=== PATIENT | male | born 1950 | race Caucasian/White ===

== ENCOUNTER → 2017-05-27 10:48 | Outpatient (REF) | payer MEDICAID, SELFPAY ==
[2017-05-27 13:54] LABS: Alanine Aminotransferase 53 U/L (12-78); Albumin Level 3.9 gm/dL (3.4-5.0); Albumin/Globulin Ratio 1.3 (1.1-1.8); Alkaline Phosphatase 79 U/L (46-116); Amylase 51 U/L (25-125); Anion Gap 14.5 mEq/L (5-15); Aspartate Amino Transferase 18 U/L (15-37); Bilirubin,Total 0.2 mg/dL (0.2-1.0); Blood Urea Nitrogen 23 mg/dL (7-18); Calcium 9.6 mg/dL (8.5-10.1); Carbon Dioxide 26 mmol/L (21.0-32.0); Chloride 108 mmol/L (98-107); Creatinine,Serum 1.56 mg/dL (0.70-1.30); Estimated Glomerular Filt Rate 45 ml/min (>60); GFR (African American) 54 ML/MIN (>60); Globulin 3.1 gm/dl (1.3-3.2); Glucose 157 mg/dL (74-106); Lipase 161 u/L (73-393); Potassium 4.5 mmoL/L (3.5-5.1); Sodium 144 mmol/L (136-145)
[2017-05-27 14:05] LABS: Basophils # 0.1 K/mm3 (0-0.2); Basophils % 0.5 % (0.1-2.0); Eosinophils # 0.7 K/mm3 (0.0-0.4); Eosinophils % 5.9 % (0.1-12.0); Hematocrit 45.6 % (42.0-52.0); Hemoglobin 15.3 g/dL (14.1-18.0); Lymphocytes # 3.3 K/mm3 (0.7-4.5); Lymphocytes % 29.8 K/mm3 (10-50); Mean Corpuscular HGB Conc 33.6 g/dL (31.8-35.4); Mean Corpuscular Hemoglobin 32.3 pg (27.0-31.2); Mean Corpuscular Volume 96.2 fl (80-94); Mean Platelet Volume 9.8 fl (7.4-10.4); Monocytes # 0.7 K/mm3 (0.1-1.0); Neutrophils # 6.3 K/mm3 (1.8-7.8); Neutrophils % 57.6 % (37.0-80.0); Platelet Count 207 K/mm3 (142-424); Red Blood Count 4.74 M/mm3 (4.60-6.20); Red Cell Distribution Width 12.6 % (11.5-17.5); White Blood Count 10.9 K/mm3 (4.8-10.8)
[2017-05-28 09:22] LABS: Erythrocyte Sedimentation Rate 8 mm/hr (0-20)
== END ==
LOC: LAB 10:48
PROVIDERS: Visit Provider Emergency Medicine
DX: R10.9 Unspecified abdominal pain (principal)
CPT/HCPCS: 80053; 82150; 83690; 85025; 85651

== ENCOUNTER → 2017-06-09 12:06 | Outpatient (CLI) | payer MEDICAID, SELFPAY ==
[2017-06-09 13:25] LABS: Anion Gap 12.2 mEq/L (5-15); Blood Urea Nitrogen 17 mg/dL (7-18); Carbon Dioxide 25 mmol/L (21.0-32.0); Chloride 108 mmol/L (98-107); Creatinine,Serum 1.36 mg/dL (0.70-1.30); Estimated Glomerular Filt Rate 53 ml/min (>60); GFR (African American) 64 ML/MIN (>60); Glucose 164 mg/dL (74-106); Potassium 4.2 mmoL/L (3.5-5.1); Sodium 141 mmol/L (136-145)
== END ==
PROVIDERS: Visit Provider Emergency Medicine
DX: Z01.812 Encounter for preprocedural laboratory examination (principal); R10.9 Unspecified abdominal pain
CPT/HCPCS: 36415; 80048

== ENCOUNTER → 2017-06-12 09:38 | Outpatient (CLI) | payer MEDICAID, SELFPAY ==
--- NOTE | 2017-06-12 09:41 | CT_ITS ---
CT abdomen pelvis w con COMPARISON: None HISTORY: Abdominal pain and distention TECHNIQUE: Multiaxial scans obtained from hemidiaphragms to the pelvic floor and were performed with IV and oral contrast. Sagittal and coronal reformats were evaluated as well. FINDINGS: The lower lung villegas are clear and is no pleural fluid. The stomach spleen and liver and pancreas appear normal. The gallbladder is somewhat small and contains multiple calcified gallstones. There are no dilated intrahepatic biliary ducts. The adrenal glands are normal. The kidneys are normal in size and show symmetrical function with tiny benign-appearing cortical cyst in each kidney the largest upper pole left kidney measuring 1.6 cm in diameter. The small bowel appears normal. There is a tiny umbilical hernia containing fat only. The appendix is normal. There is a moderate amount stool throughout the colon. There is mild diffuse diverticulosis of the lower descending colon without diverticulitis. The prostate is enlarged causing indentation on the floor of the urinary bladder. There is mild diffuse bladder wall thickening of either chronic atelectasis obstruction. There is an IVC filter in place. There are small bilateral angle hernias containing fat only. IMPRESSION: Obvious cholelithiasis, other nonacute findings as described above
--- NOTE | 2017-06-12 11:22 | HMH.ITSHM ---
tamsulosis finasterine lo dose aspirin vit d3 levothryoxine
== END ==
PROVIDERS: Family Provider Emergency Medicine; PCP Emergency Medicine; Visit Provider Emergency Medicine
DX: R10.9 Unspecified abdominal pain (principal)
CPT/HCPCS: 74177; Q9967

== ENCOUNTER → 2017-06-24 14:14 | Outpatient (REF) | payer MEDICAID, SELFPAY ==
[2017-06-24 18:06] LABS: Alanine Aminotransferase 44 U/L (12-78); Albumin/Globulin Ratio 1.2 (1.1-1.8); Alkaline Phosphatase 88 U/L (46-116); Anion Gap 11.2 mEq/L (5-15); Aspartate Amino Transferase 17 U/L (15-37); Bilirubin,Total 0.3 mg/dL (0.2-1.0); Blood Urea Nitrogen 21 mg/dL (7-18); Calcium 9.3 mg/dL (8.5-10.1); Carbon Dioxide 27 mmol/L (21.0-32.0); Chloride 108 mmol/L (98-107); Creatinine,Serum 1.51 mg/dL (0.70-1.30); Estimated Glomerular Filt Rate 47 ml/min (>60); Free T4 (Free Thyroxine) 1.02 ng/dl (0.76-1.46); GFR (African American) 57 ML/MIN (>60); Globulin 3.3 gm/dl (1.3-3.2); Glucose 219 mg/dL (74-106); Lipase 142 u/L (73-393); Potassium 4.2 mmoL/L (3.5-5.1); Sodium 142 mmol/L (136-145); Total Protein,Serum 7.3 gm/dL (6.4-8.2)
== END ==
LOC: LAB 14:14
PROVIDERS: Visit Provider Emergency Medicine
DX: R53.83 Other fatigue (principal)
CPT/HCPCS: 80053; 83690; 84439; 84443

== ENCOUNTER → 2017-07-10 07:52 | Outpatient (CLI) | payer MEDICAID, SELFPAY ==
--- NOTE | 2017-07-10 07:54 | US_ITS ---
US abdomen limited COMPARISON: CT scan abdomen pelvis 06/12/2017 HISTORY: Right upper quadrant pain TECHNIQUE: Targeted ultrasound right upper quadrant FINDINGS: The pancreas is normal. The liver is normal size and shows overall increased and somewhat coarsened echogenicity consistent with diffuse fatty infiltration. There are no focal lesions. Gallbladder is lower limits of normal size and there are multiple calcified gallstones layering along the dependent wall with acoustic shadowing beneath. The common bile duct is normal caliber and there is no intrahepatic ductal dilatation. Right kidney measures 9.6 x 4.8 x 6.4 cm. There are 2 small benign-appearing cortical cysts right kidney. IMPRESSION: 1 Obvious cholelithiasis. 2. Diffuse fatty infiltration of the liver
== END ==
PROVIDERS: Family Provider Emergency Medicine; PCP Emergency Medicine; Visit Provider Emergency Medicine
DX: R10.11 Right upper quadrant pain (principal)
CPT/HCPCS: 76705

== ENCOUNTER → 2017-07-15 12:49 | Outpatient (CLI) | payer MEDICAID, SELFPAY | PROVIDERS: PCP Emergency Medicine; Visit Provider Surgery | DX: Z01.810 Encounter for preprocedural cardiovascular examination (principal); R10.32 Left lower quadrant pain | CPT/HCPCS: 93005 ==

== ENCOUNTER 2019-08-06 14:09 | Emergency (ER) | payer MEDICARE, SELFPAY ==
[2019-08-06 14:09] VITALS: BP 142/94; PULSE 82; RESP 19; TEMP 36.7; O2SAT 100; BMI 24.5
--- NOTE | 2019-08-06 14:37 | HMH.EDUTC ---
[facility] [place] Disposition Clinical Impression: UTI (urinary tract infection) Qualifiers: Urinary tract infection type: site unspecified Hematuria presence: with hematuria Qualified Code(s): N39.0 - Urinary tract infection, site not specified; R31.9 - Hematuria, unspecified Disposition: Home, Self-Care Condition on Discharge: Good Instructions: Urinary Tract Infection, DI for Urinary Tract Infection (UTI), Ciprofloxacin Additional Instructions: *Increase fluids. Water not Soda or Tea *Start antibiotic immediately and be sure to take as ordered for the FULL length of time although you should start to see improvement over the next 48 hours *Be SURE to follow up anytime for new or worsening symptoms with your family doctor. AND in 48 hours for urine culture results with your family doctor, if you do not have a doctor then you may call back to the [facility] for urine culture results and further treatment. We do recommend that you choose and establish care with a Primary Care Physician. AND follow up with them in 10-14 days to repeat UA to ensure infection is resolved and blood no longer present *Be sure to let your PCP know that we sent urine cultures from the [facility] so they can follow up to ensure that you area the on the correct antibiotic Call your doctor office and make appointment for 48 hours (2 days from today) to follow up and get the results of your urine culture and further treatment Straight to ER if any pain or worsening of symptoms Make sure to follow up your family doctor next week for urine culture results Return if needed Prescriptions: Ciprofloxacin HCl [Cipro 500mg Tab] 500 mg PO BID 10 Days #20 tab Transmission Status: Pending to [facility] #[id number] Referrals: Guzman Rodríguez MD [Primary Care Provider] - As needed Time of Disposition: 14:54 Medical Decision Making - Cuco Inquiry Pt receiving controlled substance: No Cuco was queried for this patient: No Vital Signs: 08/06/19 14:09 Temperature 98.1 F Temperature Source Oral Pulse Rate [Radial] 82 Respiratory Rate 19 Blood Pressure [Right Arm] 142/94 H Blood Pressure Mean [Right Arm] 110 Blood Pressure Source [Right Arm] Automatic Cuff Blood Pressure Position [Right Arm] Sitting 02 Sat by Pulse Oximetry 100 Oxygen Delivery Method Room Air - Lab Data Lab results reviewed: Yes: I reviewed the patient's lab results. Orders (Tests/Meds): ORDERS Category Date Time Status Urine Culture Stat Micro 08/06/19 14:36 Ordered - Reevaluation(s) Time: 14:49 Reevaluation #1: Discussed UA test results with patient +leukocytes, recommended transfer to ED for further evaluation and CT with Stone protocol to rule out kidney stone and patient declined State that he will take antibiotics for UTI and follow up with PCP next week for urine culture results and further treatment Did not have any pain at this time and would return and go straight to ED if he started having any pain or worsening of symptoms Medication discussed with pharmacy and agreed Cipro 500mg bid x 10 days [facility] [place] HPI - General Stated complaint: Blood in urine Time Seen by Provider: 08/06/19 14:38 Mode of Arrival: Ambulatory Source of Information: Patient Limitations: No Limitations Description of Symptoms (Recalled from Triage Doc. by RN): BLOOD IN URINE SINCE 5 AM HEENT Symptoms (Recalled from RN notes): No Resp Symptoms (Recalled from RN notes): No Skin Symptoms (Recalled from RN notes): No MS Symptoms (Recalled from RN notes): No Functional Status (Recalled from RN notes): WNL - History of Present Illness Provider Complaint: Patient state that last night before he went to bed he noticed his urine looked dark State that he has had kidney stones before but not having pain like he had with that States that this morning his urine was dark and cloudy States that it looked like it may have some blood in it and burned when he urinated Denies fever, denies flank pain - Related Data Home
[2019-08-06 14:45] LABS: Apearance,Urine Cloudy (Clear); Bilirubin,Urine Negative (Negative); Blood, Urine 3+ (Negative); Color,Urine Dark Yellow (Yellow); Glucose,Urine (UA) 250 (Negative); Ketones,Urine Negative (Negative); PH,Urine 5.5 (5.0-8.5); Protein,Urine 1+ (Negative); Specific Gravity, Urine 1.025 (1.005-1.030); UTC Leukocyte Esterase,Urine 1+ (Negative); UTC Nitrate,Urine Negative (Negative); Urobilinogen,Urine 0.2 EU/dl (0.2)
[2019-08-06 15:09] VITALS: BP 142/94; PULSE 82; RESP 19; TEMP 36.7; O2SAT 100
== END 2019-08-06 15:10 | disposition home or self-care (01) ==
PROVIDERS: Emergency Provider Nurse Practitioner; PCP Emergency Medicine
DX: N30.01 Acute cystitis with hematuria (principal); Z90.09 Acquired absence of other part of head and neck; Z87.891 Personal history of nicotine dependence
CPT/HCPCS: G0463; 81003; 87086; 99201

== ENCOUNTER 2021-01-24 00:32 | Emergency (ER) | payer MEDICARE, MEDICAID, SELFPAY ==
[2021-01-24 00:34] VITALS: BP 152/105; PULSE 91; RESP 16; TEMP 37.2; O2SAT 97; BMI 25.7
[2021-01-24 00:47] VITALS: BMI 25.5
--- NOTE | 2021-01-24 00:48 | XR_ITS ---
PROCEDURE INFORMATION: Exam: XR Right Ankle Exam date and time: 01/24/2021 12:48 AM Age: 70 years old Clinical indication: Injury or trauma; Fall; Blunt trauma; Ankle; Right TECHNIQUE: Imaging protocol: XR Right ankle. Views: 3 or more views. COMPARISON: No relevant prior studies available. FINDINGS: Bones/joints: Acute mildly laterally displaced fracture of the metaphysis of the distal fibula with widening of the medial aspect of the ankle mortise. Prominent plantar calcaneal enthesophyte. At least a moderate size tibiotalar joint effusion which is more prominent anteriorly. Soft tissues: Diffuse soft tissue swelling about the ankle. IMPRESSION: 1. Acute mildly displaced fracture of the metaphysis of the distal fibula. 2. Widening the medial ankle mortise. 3. Moderate tibiotalar joint effusion.
--- NOTE | 2021-01-24 00:48 | XR_ITS ---
PROCEDURE INFORMATION: Exam: XR Pelvis Exam date and time: 01/24/2021 12:48 AM Age: 70 years old Clinical indication: Injury or trauma; Fall; Blunt trauma (contusions or hematomas); Bilateral; Pelvic region TECHNIQUE: Imaging protocol: XR pelvis. Views: 1 or 2 view. COMPARISON: ABDPELW CT abdomen pelvis w con 06/12/2017 10:03 AM FINDINGS: Bones/joints: No acute or healing fracture or malalignment. Soft tissues: Unremarkable. Vasculature: IVC filter identified projecting over the right aspect of the L3 vertebral body. IMPRESSION: No acute or healing fracture or malalignment. COMMENTS: For patients with an IVC filter, recommend assessment for a management plan for the patient's IVC filter. If there is no established management plan, recommend referral to an interventional clinician on a nonemergent basis for evaluation.
--- NOTE | 2021-01-24 00:48 | XR_ITS ---
PROCEDURE INFORMATION: Exam: XR Chest Exam date and time: 01/24/2021 12:48 AM Age: 70 years old Clinical indication: Injury or trauma; Fall; Blunt trauma (contusions or hematomas) TECHNIQUE: Imaging protocol: XR of the chest. Views: 2 views. COMPARISON: ABDPELW CT abdomen pelvis w con 06/12/2017 10:03 AM FINDINGS: Lungs: Unremarkable. No consolidation. Pleural spaces: Unremarkable. No pleural effusion. No pneumothorax. Heart/Mediastinum: Unremarkable. No cardiomegaly. Bones/joints: No suspicious lytic or sclerotic lesions of bone; degenerative changes of the spine and acromioclavicular joints. Lower cervical spine fusion hardware identified. IMPRESSION: 1. No acute cardiopulmonary disease. 2. No acute trauma related pathology.
--- NOTE | 2021-01-24 00:48 | XR_ITS ---
PROCEDURE INFORMATION: Exam: XR Right Tibia and Fibula Exam date and time: 01/24/2021 12:48 AM Age: 70 years old Clinical indication: Injury or trauma; Fall; Blunt trauma; Lower leg; Right TECHNIQUE: Imaging protocol: XR Right tibia and fibula. Views: 2 views. COMPARISON: CR XR ANKLE RT MIN 3V 01/24/2021 12:55 AM FINDINGS: Bones/joints: Prominent plantar calcaneal enthesophyte. Moderate tibiotalar joint effusion. Acute fracture of the metaphysis of the distal fibula. Widening of the medial ankle mortise. No other acute or healing fracture or malalignment. Soft tissues: Diffuse soft tissue swelling about the ankle. IMPRESSION: 1. Acute fracture of the metaphysis of the distal fibula. 2. Acute fracture of the distal fibula at the level of the metaphysis. Widening of the medial ankle mortise. No other acute or healing fracture or malalignment.
--- NOTE | 2021-01-24 02:05 | HMH.EDFALL ---
ED Disposition Clinical Impression: Disorder of ligament, right ankle Ankle fracture, right Qualifiers: Encounter type: initial encounter Fracture type: closed Qualified Code(s): S82.891A - Other fracture of right lower leg, initial encounter for closed fracture Disposition: Home, Self-Care Condition on Discharge: Good Instructions: DI for Ankle Fracture Additional Instructions: ice and elevate and call dr munson and pcp this am Referrals: Guzman Rodríguez MD [Primary Care Provider] - Sharlene Munson DPM [Staff Physician] - - Critical Care Critical Care Time: No Attestation: On 01/24/21, the high probability of a clinically significant, sudden or life threatening deterioration of the following system(s) required my full and direct attention, intervention and personal management. The time I documented below is in addition to time spent performing reported procedures but includes the following listed in this critical care notation. Medical Decision Making - Medical Records Medical records reviewed: Yes: I reviewed the patient's medical records. - Cuco Inquiry Pt receiving controlled substance: No Vital Signs: 01/24/21 00:34 Temperature 98.9 F Temperature Source Oral Pulse Rate [Left] 91 H Respiratory Rate 16 Blood Pressure [Right Arm] 152/105 H Blood Pressure Mean [Right Arm] 120 02 Sat by Pulse Oximetry 97 - Lab Data Lab results reviewed: Yes: I reviewed the patient's lab results. Orders (Tests/Meds): ED MEDICATIONS Discontinued Medications Generic Name Dose Route Start Last Admin Trade Name Freq PRN Reason Stop Dose Admin Acetaminophen/Codeine Phosphate 1 mayi 01/24/21 03:07 01/24/21 03:10 Acetaminophen 300mg W/Codeine 30mg Take Home Pack (6) PO 01/24/21 03:08 1 mayi ONCE ONE Administration Hydrocodone Bitart/Acetaminophen 1 tab 01/24/21 03:07 01/24/21 03:10 Hydrocodone/Apap 5/325 Mg Tablet PO 01/24/21 03:08 1 tab ONCE ONE Administration Ketorolac Tromethamine 60 mg 01/24/21 01:13 01/24/21 01:21 Ketorolac 60mg/2ml Vial IM 01/24/21 01:14 60 mg ONCE ONE Administration Methylprednisolone Sodium Succinate 125 mg 01/24/21 01:13 01/24/21 01:21 Methylprednisolone Sod Succ 125mg Vial IM 01/24/21 01:14 125 mg ONCE ONE Administration - Radiology Data #1 Image(s): Chest, Pelvis, Tib/Fib, Ankle Image Reviewed: Yes I have reviewed radiologist's interpretation Preliminary Findings: Abnormal (see report ) - CT Data CT Scan: Other (ankle ) Time Received: 03:[address] Reviewed: Yes: I have viewed the radiologist's interpretation Preliminary Findings: Abnormal (see report ) Medical Decision Narrative: will place in post splint and refer to dr arpit Couch HPI - General Chief Complaint: Fall Stated Complaint: AO 01/23/21 1700 Injury to Right leg Time Seen by Provider: 01/24/21 01:10 Mode of Arrival: Wheelchair Source of Information: Patient, Medical Record Limitations: No Limitations Description of Symptoms (Recalled from ER Triage Doc. by RN): pt fell in the afternoon down 2 stairs and hurt his right valencia. pt also has hx of chronic pain in legs pain 12/14 - History of Present Illness HPI Narrative: had acute fall missed steps and injured rt lower leg MD complaint: fall Onset (ago): hour(s) Fall from: down stairs (#) Place fall occurred: home Loss of consciousness: none Prolonged down time: no Context: tripped/slipped Location of injury - extremities: Right: lower leg Severity: moderate Associated symptoms (after fall): denies - Related Data Home Medications Medication Instructions Recorded Confirmed aspirin 81 mg tablet,delayed 81 mg PO DAILY tab 05/27/17 01/06/20 release Previous Rx's Medication Instructions Recorded cholecalciferol (vitamin D3) 125 5,000 unit PO DAILY #90 cap 03/22/18 mcg (5,000 unit) capsule Ciprofloxacin HCl [Cipro 500mg 500 mg PO BID 10 Days #20 tab 08/06/19 Tab] levothyroxine
--- NOTE | 2021-01-24 02:20 | CT_ITS ---
PROCEDURE INFORMATION: Exam: CT Right Lower Extremity Without Contrast, Ankle Exam date and time: 01/24/2021 2:20 AM Age: 70 years old Clinical indication: Injury or trauma; Fall TECHNIQUE: Imaging protocol: CT of the Right lower extremity without contrast was performed. Exam focused on the ankle. 3D rendering (Not supervised by radiologist): MIP and/or 3D reconstructed images were created by the technologist. Radiation optimization: All CT scans at this facility use at least one of these dose optimization techniques: automated exposure control; mA and/or kV adjustment per patient size (includes targeted exams where dose is matched to clinical indication); or iterative reconstruction. COMPARISON: CR XR ANKLE RT MIN 3V 01/24/2021 12:55 AM FINDINGS: Diffuse subcutaneous edema. Acute mildly displaced comminuted fracture centered at the metaphysis of the distal fibula. No other acute or healing fracture. Widening at the medial ankle mortise. This concerning for associated deltoid ligamentous complex injury which can be further assessed with MRI. At least a small to moderate tibiotalar joint effusion is present. Prominent plantar calcaneal enthesophyte No soft tissue hemorrhage or hematoma. IMPRESSION: 1. Acute mildly displaced comminuted fracture centered at the metaphysis of the distal fibula. 2. Widening at the medial ankle mortise.
--- NOTE | 2021-01-24 02:25 | PC.NURSE ---
pt to ct
[2021-01-24 03:11] VITALS: BP 152/105; PULSE 87; RESP 14; TEMP 37.2; O2SAT 99
== END 2021-01-24 03:32 | disposition home or self-care (01) ==
PROVIDERS: Emergency Provider Emergency Medicine; PCP Emergency Medicine
DX: S82.831A Other fracture of upper and lower end of right fibula, initial encounter for closed fracture (principal); W10.9XXA Fall (on) (from) unspecified stairs and steps, initial encounter; Y92.019 Unspecified place in single-family (private) house as the place of occurrence of the external cause; Z87.891 Personal history of nicotine dependence; R73.9 Hyperglycemia, unspecified
CPT/HCPCS: 29515; 36415; 71046; 72170; 73590; 73610; 73700; 80053; 83036; 85007; 85025; 93005; 99283

== ENCOUNTER → 2021-01-24 11:58 | Outpatient (CLI) | payer MEDICARE, SELFPAY ==
[2021-01-24 12:28] LABS: Basophils % 0.1 % (0.1-2.0); Eosinophils # 0.1 K/mm3 (0.0-0.4); Eosinophils % 0.5 % (0.1-12.0); Hematocrit 49.5 % (42.0-52.0); Hemoglobin 15.9 g/dL (14.1-18.0); Mean Corpuscular HGB Conc 32.1 g/dL (31.8-35.4); Mean Corpuscular Hemoglobin 32.2 pg (27.0-31.2); Mean Corpuscular Volume 100.1 fl (80-94); Mean Platelet Volume 9.2 fl (7.4-10.4); Monocytes # 0.2 K/mm3 (0.1-1.0); Monocytes % 1.4 % (1.7-9.3); Neutrophils # 14.6 K/mm3 (1.8-7.8); Neutrophils % 92.1 % (37.0-80.0); Platelet Count 227 K/mm3 (142-424); Red Blood Count 4.95 M/mm3 (4.60-6.20); Red Cell Distribution Width 12.6 % (11.5-17.5); White Blood Count 15.8 K/mm3 (4.8-10.8)
[2021-01-24 12:30] LABS: MANUAL DIFFERENTIAL MANUAL DIFFERENTIAL (MANUAL DIFF)
--- NOTE | 2021-01-24 12:31 | ECG_ITS ---
APPROVED REPORT Exam: Resting ECG HR:56 bpm ECG Measurements Heart Rate 56 AXES DE 152 P 78 QRSd 92 QRS 95 QT 416 T 35 QTc 401 Conclusion Sinus bradycardia with sinus arrhythmia Rightward axis Borderline ECG Electronically signed by : Jac Diamond MD 01/24/2021 15:09:41
[2021-01-24 12:43] LABS: Lymphocytes % 6 % (10-50); Monocytes % 1 % (2-9); Neutrophils % 93 % (42-76); Total Cells Counted 100
[2021-01-24 12:44] LABS: Platelet Estimate Normal
[2021-01-24 13:08] LABS: Alanine Aminotransferase 30 U/L (12-78); Albumin Level 4.1 g/dl (3.5-5.0); Albumin/Globulin Ratio 1.6 (1.1-1.8); Alkaline Phosphatase 78 U/L (38-126); Anion Gap 14.6 mEq/L (5-15); Aspartate Amino Transferase 24 U/L (17-59); Bilirubin,Total 0.4 mg/dl (0.2-1.3); Blood Urea Nitrogen 24 mg/dl (9-20); Calcium 9.8 mg/dl (8.4-10.2); Carbon Dioxide 20 mmol/L (22.0-30.0); Chloride 109 mmol/L (98-107); Estimated Glomerular Filt Rate 55 ml/min (>60); GFR (African American) 66 ML/MIN (>60); Globulin 2.6 g/dL (1.3-3.2); Glucose 337 mg/dl (74-100); Potassium 4.6 mmoL/L (3.5-5.1); Sodium 139 mmol/L (136-145); Total Protein,Serum 6.7 g/dl (6.3-8.2)
[2021-01-24 16:13] LABS: Hemoglobin A1C 8.8 % (4.0-6.0)
== END ==
PROVIDERS: PCP Emergency Medicine; Visit Provider Podiatrist
DX: R73.9 Hyperglycemia, unspecified (principal)
CPT/HCPCS: 36415; 80053; 83036; 85007; 85025; 93005

== ENCOUNTER → 2021-01-28 10:04 | Outpatient (CLI) | payer MEDICARE, MEDICAID, SELFPAY | PROVIDERS: PCP Emergency Medicine; Visit Provider Nurse Practitioner | DX: Z20.822 Contact with and (suspected) exposure to COVID-19 (principal) | CPT/HCPCS: C9803; U0003; U0005 ==

== ENCOUNTER → 2021-01-29 10:10 | Outpatient (CLI) | payer MEDICARE, MEDICAID, SELFPAY ==
--- NOTE | 2021-01-29 10:11 | US_ITS ---
APPROVED REPORT Exam Type: Lower Extremity Segmental Pressures Veneer Redrier: Sharlene Ling RVT Indications Claudication: Right Rest Pain: Right History of Smoking RT ANKLE FX,PRE-OP SKIN COLOR CHANGES Risk Factors History of Smoking Pressures/Indices Right Indices Left Indices Brachial 118.00 mmHg Brachial 118.00 mmHg Low Thigh 160.00 mmHg 1.36 Low Thigh 171.00 mmHg 1.45 Calf 190.00 mmHg 1.61 Calf 178.00 mmHg 1.51 Ankle(PT) 185.00 mmHg 1.57 Ankle(PT) 164.00 mmHg 1.39 Ankle(DP) 175.00 mmHg 1.48 Ankle(DP) 154.00 mmHg 1.31 Digit 130.00 mmHg 1.10 Digit 175.00 mmHg 1.48 Findings RT LAKESHA:1.57 LT LAKESHA:1.39 RT TBI:1.10 LT TBI:1.48 NORMAL PULSES BILATERAL NORMAL WAVEFORMS BILATERAL Conclusion RT LAKESHA:1.57 LT LAKESHA:1.39 RT TBI:1.10 LT TBI:1.48 NORMAL PULSES BILATERAL NORMAL WAVEFORMS BILATERAL Electronically signed by : Heike Izquierdo MD 02/01/2021 17:05:55
== END ==
PROVIDERS: PCP Emergency Medicine; Visit Provider Podiatrist
DX: R09.89 Other specified symptoms and signs involving the circulatory and respiratory systems (principal)
CPT/HCPCS: 93923

== ENCOUNTER 2021-01-30 06:19 | Day surgery (SDC) | payer MEDICARE, MEDICAID, SELFPAY ==
[2021-01-29 08:53] VITALS: BMI 25.5
[2021-01-30] VITALS (14 sets, daily range): BP systolic 124–150; BP diastolic 72–93; PULSE 66–91; RESP 14–18; TEMP 36.1–43; O2SAT 93–98
--- NOTE | 2021-01-30 07:44 | P.PN_ITS ---
[facility] Anesthesia Checklist - Patient Identification Patient Identification: Arm Band, Verbal (Name & ) - Structural Data Admitted From: Home Planned Operative Procedure/s: Right Ankle ORIF Consent for Planned Operative Procedure(s) Verified: Yes Verified Documents: Surgical Consent - NPO Status Verified Time NPO: 00:00 - Chart Verification Results Verified: CBC, BMP - Additional verifications Anesthesia Reactions: No Hx Blood Transfusions: No Blood Transfusion Reaction: No - Cardiovascular Assessment Heart Sounds: S1 & S2 Pulse Rhythm: Regular - Airway Assessment C-Spine Mobility Assessed: Yes TMJ Mobility Assessed: Yes Dentition: Good Dentition - Neurological Assessment Level of Consciousness: Awake, Alert, Appropriate - Anesthesia Plan Anesthesia Risk discussed: Yes ASA Class: II Anesthesia Type: General w/block [facility] History I have reviewed the patient's past medical history: Yes 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: Reports:: Deep Vein Thrombosis, Kidney Stones Denies:: Cancer, Diabetes Mellitus Type 1, Diabetes Mellitus Type 2, Internal Pacemaker, Lung Disease, MRSA, Seizures *Have you ever received a pneumonia vaccine?: Yes *Have you received a flu vaccine this season?: Yes Other 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: Reports: Cataracts, Thyroid Disease. Denies: Blood Transfusion Reaction Anesthesia experience/problems:: no issues Laterality Cases: Bilateral: Tonsillectomy Other Surgeries: Yes: Colonoscopy, Other. No: Pacemaker Amputation: No Fractures: No - *Social History Last grade of school completed: High school graduate Smoking Status: Former smoker Alcohol Intake: never Substance Use Type: denies use, heroin *Occupational Status:: retired Housing: house Household Members: spouse *Travel in the last 8 weeks: None Family Hx:: Cancer
--- NOTE | 2021-01-30 09:21 | XR_ITS ---
PROCEDURE: XR ANKLE RT 2V CLINICAL INDICATION: ORIF RT ANKLE IN OR COMPARISON: CR XR ANKLE RT MIN 3V from 01/24/2021 FINDINGS: Two fluoroscopic images obtained in surgery show placement of the distal fibular lateral bone plate which is fixated by threaded screw superiorly and inferiorly to the oblique distal fibular fracture. There has been reduction of the widened ankle mortise medially. IMPRESSION: Satisfactory ORIF distal fibular fracture and widened medial ankle mortise Dictated by: Dr. Parviz Cervantes MD 01/30/2021 12:27 Dr. Parviz Cervantes MD in [facility] 01/30/2021 12:27
--- NOTE | 2021-01-30 09:30 | XR_ITS ---
PROCEDURE: XR ANKLE RT MIN 3V CLINICAL INDICATION: Post op ORIF COMPARISON: CR XR ANKLE RT MIN 3V from 01/24/2021 FINDINGS: AP lateral oblique films were obtained through the semiopaque cast. The distal fibular lateral bone plate is transfixing and reducing the fracture of the distal fibula and lateral malleolus. There has been interval reduction of the widened medial ankle mortise to a normal appearing ankle mortise at this time. IMPRESSION: Satisfactory ORIF distal fibular fracture and reduction of the widened ankle mortise Dictated by: Dr. Parviz Cervantes MD 01/30/2021 12:25 Dr. Parviz Cervantes MD in OV 01/30/2021 12:25
--- NOTE | 2021-01-30 10:00 | HMH.ANESI ---
[facility] Anesthesia Record Part I Intake, IV Amount: 1,300 Estimated blood loss (mL): 20 Urine output (mL): 0 Blood Pressure: 134/77 SaO2: 94 Pulse Rate: 91 Respiratory Rate: 16 Temperature: 98.8 F Patient is:: Drowsy, Stable Stable to PACU at:: 10:00
--- NOTE | 2021-01-30 10:13 | SUR.PHASEI ---
blood sugar checked in pacu- 184 at 1007
[2021-01-30 10:15] LABS: POC Glucose,Bedside 184 (70-110)
--- NOTE | 2021-01-30 10:15 | HMH.OPNOTE ---
Date of procedure: 01/30/21 Pre-op Diagnosis:: 1. Right ankle fracture 2. Right deltoid ligament tear Post-op Diagnosis:: Same Procedure performed:: 1. Right distal fibula fracture ORIF 2. Right deltoid ligament direct open repair 3. Application of posterior splint Surgeon:: Sharlene Myers DPM CIRCULATION SALES REPRESENTATIVE:: Deshawn Kiran Anesthesia: GETA, regional (R pop, saph nerve block) Estimated blood loss (mL): 20 Clinical Note:: Patient is a 70-year-old newly diagnosed diabetic who had an accident last week when he fell and tripped on the stairs. X-rays and CT scan reviewed and discussed with the patient. Conservative treatment discussed but not recommended due to increase medial clear space and comminuted displaced fibula fracture. DOI: 01/23/21. We discussed surgery. All risks and benefits were discussed including but not limited to: damage to blood vessels and nerves, bleeding, infection, wound complications, delayed, mal or non-union of bone, post-traumatic arthritis, need for further surgery, implant failure, need for removal of implant, prolonged or permanent swelling of the extremity, prolonged or permanent pain or deformity, CRPS/RSD, DVT/PE, and anesthetic complications including . No guarantees were given. All questions fully answered. The patient verbalized understanding and agreed to proceed with surgery. Consent was obtained. Necessary labs and pre-op testing ordered: CBC, BMP, EKG, CXR, covid. Patient has crutches, Rx given for walker. Medical clearance granted per Dr. Rodríguez. Operative findings:: Increased medial clear space noted. Comminuted distal fibula fracture. There were 4 fracture fragments. There was a piece off of the anterior distal fibula. The more transverse oblique oriented distal fibula fracture had some fragmentation likely from impaction falling down the stairs. Hematoma and fluid noted in the ankle and subtalar joints. Syndesmosis appeared stable with no widening on testing. Operative note:: On this date and time patient was deemed an appropriate surgical candidate. Pre-op regional femoral and sciatic nerve block performed by anesthesia. With informed consent signed, the patient was taken to the operating theater. The patient was positioned supine. General anesthesia was induced. Tourniquet was applied to the right thigh. The right lower extremity was prepped and draped in normal sterile fashion. Right Distal Fibula Fracture ORIF: Attention was directed to the lateral ankle where intra-op fluoroscopy was utilized to sheila anatomical landmarks. A linear incision was made over the lateral ankle. Dissection was carried thru skin and subcutaneous tissue with care taken to maintain surgical hemostasis and safely retract neurovascular structures. Dissection was then carried thru deep fascia to bone. The peroneal tendons were visible posteriorly and laterally, and safely retracted during procedure. The fibula was clearly visualized and the fracture was identified. The fracture was noted to be communited. There were 3 main fracture fragments and a smaller piece off of the anterior distal fibula. Utilizing a curette the fracture fragments were cleaned. Please note that there was not any callus formation. Due to the fragmentation the ankle was unstable. Hematoma evacuated from the fracture site and the ankle joint. There was also blood and fluid to the subtalar and ankle joints. The wound was flushed with copious amounts of normal sterile saline. A curette was used to debride the fibrosis tissue from the fracture site. At this point reduction forceps were utilized compressing the distal more transverse oriented spiral oblique fibula fracture. Intraoperative fluoroscopy was utilized to check pre-and post-reduction AP and lateral views. The fracture was too communited to fit a lag, intrafrag screw. A bridge plate technique was utilized. A [employer] anatomic locking plate was applied and temporarily fixed. Again x-ray was used to check the
--- NOTE | 2021-01-30 11:11 | SUR.OPER ---
[id number] family provided with update [id number] family provided with update
--- NOTE | 2021-01-31 17:51 | HMH.ANESII ---
[facility] Anesthesia Record Part II Discharge Time: 10:38 Destination: Home PACU nurse assessment reviewed?: Yes Patient Condition:: Good Anesthesia Complications:: None none Swallowing reflex intact?: Yes Cyanosis?: No Blood Pressure: 133/84 Pulse Rate: 83 Temperature: 97.0 F Mental Status: Alert & Oriented Pain level:: 0 Nausea and/or vomitting:: None Intake, IV Amount: 0
[2021-01-31 17:52] VITALS: BP 133/84; PULSE 83; TEMP 36.1
== END 2021-01-30 12:32 | disposition home or self-care (01) ==
LOC: OR 06:21
PROVIDERS: PCP Emergency Medicine; Visit Provider Podiatrist
PROC: (CPT 27792; principal; 2021-01-30 07:30)
DX: S82.891A Other fracture of right lower leg, initial encounter for closed fracture (principal); S93.421A Sprain of deltoid ligament of right ankle, initial encounter; E11.9 Type 2 diabetes mellitus without complications; E03.9 Hypothyroidism, unspecified; Z79.899 Other long term (current) drug therapy; Z79.84 Long term (current) use of oral hypoglycemic drugs; W10.9XXA Fall (on) (from) unspecified stairs and steps, initial encounter; Y92.019 Unspecified place in single-family (private) house as the place of occurrence of the external cause
CPT/HCPCS: 27792; 27695; 73600; 73610; 76000; 82962; 96374; C1713; C1762; C1776; J2405

== ENCOUNTER → 2021-02-26 12:31 | Outpatient (CLI) | payer MEDICARE, MEDICAID, SELFPAY ==
--- NOTE | 2021-02-26 12:32 | CA_ITS ---
APPROVED REPORT Right Lower Extremity Venous Study for DVT. Rn House Supervisor: MARYSOL Indications Lower Extremity Edema: Right History of Smoking Pain and edema of right lower extremity. Patient fractured the right fibula with surgery done 01/30/21. States 3 days ago he noticed swelling in his right thigh. He is currently wearing a tall fracture walking boot post cast removal 02/18/21. Risk Factors Immobility Post OP Vein Imaging CFV (R): Thrombus FEM (R): Thrombus POP (R): Thrombus PTV (R): Thrombus GSV (R): Thrombus SSV (R): Thrombus Peroneals (R):Thrombus GAS (R): Thrombus Findings The right Peroneal, Posterior Tibial, Popliteal, Femoral, Common Femoral, Small Saphenous, Great Saphenous Veins are dilated Color flow duplex demonstrates superficial thrombosis of the right Great Saphenous Vein above the knee.and are non-compressible. Color flow duplex of the right lower extremity demonstrates occlusive DVT involving the following Veins:Peroneal, Posterior Tibial, Popliteal, Femoral, Common Femoral and gastrocnemius. Conclusion Extensive DVT right lower extremity Critical Notification Critical Value: Yes Physician Notified Date: 02/26/2021 Time: 13:27 Physician Name: GURDEEP Fernando [facility] primary care Electronically signed by : Lucho Hickman MD 02/27/2021 16:33:18
== END ==
PROVIDERS: PCP Emergency Medicine; Visit Provider Emergency Medicine
DX: M79.604 Pain in right leg (principal); R60.0 Localized edema
CPT/HCPCS: 93971

== ENCOUNTER → 2021-03-14 09:08 | Outpatient (CLI) | payer MEDICARE, MEDICAID, SELFPAY ==
--- NOTE | 2021-03-14 09:29 | XR_ITS ---
PROCEDURE: XR ANKLE WT BEARING RT MIN 3V CLINICAL INDICATION: fracture follow up/postop views COMPARISON: CR XR ANKLE RT MIN 3V from 01/24/2021 CR XR ANKLE RT 2V from 01/30/2021 CR XR ANKLE RT MIN 3V from 01/30/2021 FINDINGS: Cast has been removed. Lateral fibular bone plate remains in place with good alignment of the distal fibular fracture. No obvious hardware malfunction. Ankle mortise is preserved. IMPRESSION: Good alignment status post ORIF distal fibular fracture Dictated by: Lucho Hickman MD 03/14/2021 16:53 Lucho Hickman MD in [place] 03/14/2021 16:53
== END ==
PROVIDERS: PCP Emergency Medicine; Visit Provider Podiatrist
DX: S82.891A Other fracture of right lower leg, initial encounter for closed fracture (principal)
CPT/HCPCS: 73610

== ENCOUNTER 2021-04-18 09:49 | Emergency (ER) | payer MEDICARE, MEDICAID, SELFPAY ==
[2021-04-18 10:16] VITALS: BP 120/85; PULSE 87; RESP 16; TEMP 36.9; O2SAT 98; BMI 25.1
--- NOTE | 2021-04-18 10:20 | HMH.EDGENADL ---
ED Disposition Clinical Impression: Abdominal cramping, Nausea Disposition: Home, Self-Care Condition on Discharge: Good Instructions: Acute Abdominal Pain Additional Instructions: follow up pcp, return for worse Prescriptions: Dicyclomine HCl [Bentyl 10mg capsule] 10 mg PO TID PRN #15 cap PRN Reason: Cramping Transmission Status: Pending to [facility] Promethazine HCl [Phenergan 25mg tab] 25 mg PO Q8 PRN #15 tab PRN Reason: Nausea And Vomiting Transmission Status: Pending to [id number] Referrals: Guzman Rodríguez MD [Primary Care Provider] - - Critical Care Critical Care Time: No Attestation: On 04/18/21, the high probability of a clinically significant, sudden or life threatening deterioration of the following system(s) required my full and direct attention, intervention and personal management. The time I documented below is in addition to time spent performing reported procedures but includes the following listed in this critical care notation. Medical Decision Making - Cuco Inquiry Pt receiving controlled substance: No Vital Signs: 04/18/21 10:16 Temperature 98.5 F Temperature Source Oral Pulse Rate [Radial] 87 Respiratory Rate 16 Blood Pressure [Right Arm] 120/85 Blood Pressure Mean [Right Arm] 96 Blood Pressure Position [Right Arm] Sitting 02 Sat by Pulse Oximetry 98 Oxygen Delivery Method Room Air - Lab Data Lab Results 04/18/21 10:15: WBC 11.2 H, RBC 4.85, Hgb 15.3, Hct 48.5, MCV 99.9 H, MCH 31.5 H, MCHC 31.6 L, RDW 13.8, Plt Count 280, MPV 9.3, Neut % (Auto) 68.1, Lymph % (Auto) 17.0, [place] % (Auto) 5.5, Eos % (Auto) 7.8, Baso % (Auto) 1.7, Neut # (Auto) 7.6, Lymph # (Auto) 1.9, [place] # (Auto) 0.6, Eos # (Auto) 0.9 H, Baso # (Auto) 0.2 04/18/21 10:15: Sodium 140, Potassium 3.5, Chloride 105, Carbon Dioxide 25, Anion Gap 13.5, BUN 21 H, Creatinine 1.20, Estimated Creat Clear 64, Estimated GFR 60, Est GFR ( Amer) 73, Glucose 212 H, Calcium 9.8, Total Bilirubin 0.3, AST 27, ALT 26, Alkaline Phosphatase 72, Total Protein 7.5, Albumin 4.6, Globulin 2.9, Albumin/Globulin Ratio 1.6 Result diagrams: 04/18/21 10:15 04/18/21 10:15 Orders (Tests/Meds): ED MEDICATIONS Discontinued Medications Generic Name Dose Route Start Last Admin Trade Name Freq PRN Reason Stop Dose Admin Dicyclomine HCl 20 mg 04/18/21 10:20 04/18/21 10:25 Dicyclomine 10mg Capsule PO 04/18/21 10:21 20 mg ONCE ONE Administration Metoclopramide HCl 10 mg 04/18/21 10:19 04/18/21 10:25 Metoclopramide Hcl 10mg/2ml Vial IVP 04/18/21 10:20 10 mg ONCE ONE Administration Ondansetron HCl 8 mg 04/18/21 10:19 04/18/21 10:24 Ondansetron 4mg/2ml Vial IV 04/18/21 10:20 8 mg ONCE ONE Administration ORDERS Category Date Time Status Abdomen XR flat & upright [XR acute abdomen series] Exams 04/18/21 10:50 Taken Stat Medical Decision Narrative: reeval, salvatore po well, abd soft, appears well, ok with plan to rx and f/u prn General Adult HPI - General Stated complaint: vomiting,abd pain Time Seen by Provider: 04/18/21 10:20 - History of Present Illness HPI narrative: mid abd pain constant dull moderate non rad since this am after eating , ASSOC W VOMIT, last bm 2 days gas pass today no prior surgery Radiation: non-radiation Severity: moderate Quality: constant Relieving factors: none Exacerbating factors: none Associated symptoms: nausea/vomiting - Related Data Home Medications Medication Instructions Recorded Confirmed aspirin 81 mg tablet,delayed 81 mg PO DAILY tab 05/27/17 03/14/21 release Hydrocod/Acet 5/325 mg [[place] 1 tab PO TID 01/30/21 03/14/21 5/325mg tablet] Metformin HCl 500 mg PO BID 01/30/21 03/14/21 Previous Rx's Medication Instructions Recorded hydrocodone 7.5 mg-acetaminophen 1 tab PO Q4-6H PRN 7 Days #40 tab 01/29/21 325 mg tablet ibuprofen 800 mg tablet 800 mg PO BID #60 tab 01/29/21
[2021-04-18 10:30] LABS: Basophils # 0.2 K/mm3 (0-0.2); Basophils % 1.7 % (0.1-2.0); Eosinophils # 0.9 K/mm3 (0.0-0.4); Eosinophils % 7.8 % (0.1-12.0); Hematocrit 48.5 % (42.0-52.0); Hemoglobin 15.3 g/dL (14.1-18.0); Lymphocytes # 1.9 K/mm3 (0.7-4.5); Mean Corpuscular HGB Conc 31.6 g/dL (31.8-35.4); Mean Corpuscular Hemoglobin 31.5 pg (27.0-31.2); Mean Corpuscular Volume 99.9 fl (80-94); Mean Platelet Volume 9.3 fl (7.4-10.4); Monocytes # 0.6 K/mm3 (0.1-1.0); Monocytes % 5.5 % (1.7-9.3); Neutrophils # 7.6 K/mm3 (1.8-7.8); Neutrophils % 68.1 % (37.0-80.0); Platelet Count 280 K/mm3 (142-424); Red Blood Count 4.85 M/mm3 (4.60-6.20); Red Cell Distribution Width 13.8 % (11.5-17.5); White Blood Count 11.2 K/mm3 (4.8-10.8)
[2021-04-18 10:39] LABS: Chloride 105 mmol/L (98-107); Sodium 140 mmol/L (136-145)
[2021-04-18 10:40] LABS: Potassium 3.5 mmoL/L (3.5-5.1)
[2021-04-18 10:42] LABS: Alanine Aminotransferase 26 U/L (12-78); Alkaline Phosphatase 72 U/L (38-126); Anion Gap 13.5 mEq/L (5-15); Aspartate Amino Transferase 27 U/L (17-59); Bilirubin,Total 0.3 mg/dl (0.2-1.3); Blood Urea Nitrogen 21 mg/dl (9-20); Calcium 9.8 mg/dl (8.4-10.2); Carbon Dioxide 25 mmol/L (22.0-30.0); Creatinine Clearance Estimated 64 mL/min (50-200); Estimated Glomerular Filt Rate 60 ml/min (>60); GFR (African American) 73 ML/MIN (>60); Glucose 212 mg/dl (74-100)
[2021-04-18 10:43] LABS: Albumin Level 4.6 g/dl (3.5-5.0); Albumin/Globulin Ratio 1.6 (1.1-1.8); Globulin 2.9 g/dL (1.3-3.2); Total Protein,Serum 7.5 g/dl (6.3-8.2)
--- NOTE | 2021-04-18 10:50 | XR_ITS ---
FINAL REPORT CLINICAL HISTORY: lower abd pain, n/v FINDINGS: Chest: Single view was obtained. The heart and mediastinum are within normal limits. There is mild right base atelectasis. There is no pneumothorax. There is dextroscoliosis of the thoracic spine. Abdomen: 2 views were obtained. There is a nonobstructive bowel gas pattern with a moderate to large amount of stool throughout the colon. There are no abnormally dilated loops of bowel. There is no free air. There are no abnormal calcifications. IMPRESSION: Mild right base atelectasis. Constipation. Reviewed, Interpreted and Dictated by Farrukh Garduno III, MD Transcribed by Anne Atkins Authenticated by Farrukh Garduno III, MD on 04/18/2021 12:27:23 PM [facility]
[2021-04-18 11:31] VITALS: BP 123/68; PULSE 78; RESP 16; TEMP 36.6; O2SAT 98
== END 2021-04-18 11:32 | disposition home or self-care (01) ==
LOC: UTC 09:54 → ER 10:03
PROVIDERS: Emergency Provider Emergency Medicine; PCP Emergency Medicine
DX: R11.2 Nausea with vomiting, unspecified (principal); E11.65 Type 2 diabetes mellitus with hyperglycemia; Z87.442 Personal history of urinary calculi
CPT/HCPCS: 74021; 80053; 85025; 96374; 96375; 99282; J2405

== ENCOUNTER → 2021-05-09 09:40 | Outpatient (CLI) | payer MEDICARE, MEDICAID, SELFPAY ==
--- NOTE | 2021-05-09 09:45 | XR_ITS ---
FINAL REPORT CLINICAL HISTORY: post-op COMPARISON: March 14, 2021 FINDINGS: RIGHT ANKLE 3 views were obtained. There are postoperative changes of the distal fibula with a screw plate and multiple screws present. Bony alignment is normal. There is a subacute to chronic appearing distal fibular fracture with callus formation. There is a plantar calcaneal spur. There is no soft tissue abnormality. IMPRESSION: Postoperative changes as described. Reviewed, Interpreted and Dictated by Farrukh Garduno III, MD Transcribed by Juanita Arenas Authenticated by Farrukh Garduno III, MD on 05/09/2021 10:38:55 AM [facility]
== END ==
PROVIDERS: PCP Emergency Medicine; Visit Provider Podiatrist
DX: Z98.890 Other specified postprocedural states (principal); S82.841D Displaced bimalleolar fracture of right lower leg, subsequent encounter for closed fracture with routine healing
CPT/HCPCS: 73610

== ENCOUNTER 2021-05-22 11:00 | Outpatient (RCR) | payer MEDICARE, MEDICAID, SELFPAY ==
--- NOTE | 2021-05-13 15:50 | HMH.PTOPEV ---
PT Outpatient Evaluation Rehab PT Outpatient Evaluation Start: 05/13/21 14:32 Freq: Status: Active Protocol: Document 05/13/21 14:37 GIOVANY (Rec: 05/13/21 15:50 GIOVANY [id number]) Electronically Signed By Colt Malone, PT 05/13/21 14:37 Outpatient Therapy Subjective History Subjective History Pt presents s/p right ankle ORIF-bimalleolar fx in lat Jan 2021. Pt reports recent D/C of right walking boot, 'so happy to be outta that boot, but I'm sore from walking too much over the weekned.' Pt reports lateral and medial right ankle soreness, lingering post-op/ immobilization weakness and stiffness, as well as chronic bilateral foot swelling. PMH: DM Chief Complaint Pain,Spasms,Swelling,Weakness Symptom Type Ache,Dull Symptoms Relieved By Rest/Positioning Symptoms Aggravated By Standing,Physical Activity, Walking Prior Functional Limitations Housework,Standing,Walking, Stairs Current Functional Limitations Housework,Standing,Walking, Stairs Symptom Description Intermittent Level of pain today (0-10) 3 Pain scale - at its best (0-10) 0 Pain scale - at its worst (0-10) 4 Ankle/Foot Eval Gait Observation General Gait Pattern Observation Antalgic Gait Assistive Device Ambulation Assistive Device None Palpation Tenderness right Ankle/Foot Palpation Findings Tenderness Ankle/Foot Palpation Overall Comment 2/4 medial and lateral jt line ROM Ankle/Foot Dorsiflexion w/Knee Extended 0 Active Range Motion (degrees) Ankle/Foot Plantar Flexion Active Range 0-44 of Motion (degrees) Ankle/Foot Eversion Active Range of 0-16 Motion (degrees) Ankle/Foot Inversion Active Range of 0-26 Motion (degrees) Ankle/Foot ROM Limitations Soft Tissue Tightness MMT Ankle Dorsiflexion Strength Grade 4- Good- Ankle Plantarflexion Strength Grade 4- Good- Foot Eversion Strength Grade 3+ Fair+ Foot Inversion Strength Grade 3+ Fair+ Outpatient Therapy Assessment Impairments Problems/Impairmments Palpation Tenderness,Impaired Range of Motion,Impaired Strength,Impaired Gait Pattern ,Impaired Walking,Impaired Standing,Impaired Household Care,
== END 2021-05-22 11:05 | disposition home or self-care (01) ==
LOC: PT 11:00
PROVIDERS: PCP Emergency Medicine; Visit Provider Podiatrist
DX: S82.841D Displaced bimalleolar fracture of right lower leg, subsequent encounter for closed fracture with routine healing (principal); Z98.890 Other specified postprocedural states
CPT/HCPCS: 97010; 97014; 97110; 97112; 97140; 97163; G0283

== ENCOUNTER 2021-05-27 13:23 | Emergency (ER) | payer MEDICARE, MEDICAID, SELFPAY ==
[2021-05-27 14:34] VITALS: BP 128/81; PULSE 103; RESP 18; TEMP 36.8; O2SAT 97; BMI 25.5
--- NOTE | 2021-05-27 14:57 | HMH.EDUTC ---
[facility] [place] Clinical Impression: UTI (urinary tract infection) Qualifiers: Urinary tract infection type: site unspecified Hematuria presence: with hematuria Qualified Code(s): N39.0 - Urinary tract infection, site not specified; R31.9 - Hematuria, unspecified Abdominal pain Qualifiers: Abdominal location: generalized Qualified Code(s): R10.84 - Generalized abdominal pain Disposition: Still a Patient Condition on Discharge: Fair Referrals: Guzman Rodríguez MD [Primary Care Provider] - Time of Disposition: 15:22 Medical Decision Making - Medical Records Medical records reviewed: No: I reviewed the patient's medical records. - Cuco Inquiry Pt receiving controlled substance: No Vital Signs: 05/27/21 14:34 Temperature 98.3 F Temperature Source Oral Pulse Rate [Right Brachial] 103 H Respiratory Rate 18 Blood Pressure [Right Arm] 128/81 Blood Pressure Mean [Right Arm] 96 Blood Pressure Source [Right Arm] Automatic Cuff Blood Pressure Position [Right Arm] Sitting 02 Sat by Pulse Oximetry 97 Oxygen Delivery Method Room Air - Lab Data Lab results reviewed: Yes: I reviewed the patient's lab results. Orders (Tests/Meds): ORDERS Category Date Time Status Urine Culture Stat Micro 05/27/21 14:30 Received [facility] HPI - General Stated complaint: bilateral ear ache, stomach pains Time Seen by Provider: 05/27/21 14:58 Mode of Arrival: Ambulatory Source of Information: Patient Limitations: No Limitations Description of Symptoms (Recalled from Triage Doc. by RN): stomach cramps, unable to urinate, cara ear ache HEENT Symptoms (Recalled from RN notes): Yes Resp Symptoms (Recalled from RN notes): No Skin Symptoms (Recalled from RN notes): No MS Symptoms (Recalled from RN notes): No Functional Status (Recalled from RN notes): n/a - History of Present Illness Provider Complaint: He states that he has been having ongoing issues with abdominal pain over the past few weeks. He was seen in the ER recently for his abdominal pain. He states that he is back because he needs answers about what is going on. Additionally, he has been having trouble urinating for the past several days. He states that he has to push very hard to get any urine to come out. In the past he has had issues with his prostate that caused similar issues. He has been having extreme chills at home for the past 2 days. He states that he chills so bad that he can't hold still. He has been using a heating pad and multiple blankets to keep from chilling. - Related Data Home Medications Medication Instructions Recorded Confirmed aspirin 81 mg tablet,delayed 81 mg PO DAILY tab 05/27/17 05/09/21 release Previous Rx's Medication Instructions Recorded ibuprofen 800 mg tablet 800 mg PO BID #60 tab 01/29/21 ondansetron 4 mg disintegrating 4 mg PO Q6H #30 tab 01/29/21 tablet rivaroxaban 20 mg tablet 20 mg PO DAILY #30 tab 02/26/21 finasteride 5 mg tablet 5 mg PO DAILY #90 tab 03/15/21 tamsulosin 0.4 mg capsule 0.4 mg PO DAILY #90 cap 03/15/21 levothyroxine 25 mcg tablet See Rx Instructions .ROUTE 03/28/21 .COMPLEX #90 tablet Dicyclomine HCl [Bentyl 10mg 10 mg PO TID PRN #15 cap 04/18/21 capsule] Promethazine HCl [Phenergan 25mg 25 mg PO Q8 PRN #15 tab 04/18/21 tab] metformin 500 mg tablet See Rx Instructions .ROUTE 05/14/21 .COMPLEX #60 tablet Allergies Allergy/AdvReac Type Severity Reaction Status Date / Time No Known Drug Allergies Allergy Verified 05/09/21 10:19 No Known Allergies Allergy Unknown Uncoded 02/26/21 11:10 - Worker's Comp Is this a Worker's Comp case?: No Is this an [facility] Worker's Comp?: No Is this a [facility] Worker's Comp?: No [facility] History - Hepatitis A Screen Drug use history?: No High risk sexual behaviors?: No History of sexually transmitted infection?: No Currently employed?: No Childcare worker?: No Do you have indoor plumbing?: Yes Do you have electricity?: Yes Attestation sta
[2021-05-27 15:15] VITALS: BP 131/83; PULSE 78; RESP 16; TEMP 36.6; O2SAT 98; BMI 23.0
[2021-05-27 15:26] LABS: Microscopic, Urine URINE MICROSCOPIC (MICROSCOPIC)
--- NOTE | 2021-05-27 15:27 | CT_ITS ---
FINAL REPORT TECHNIQUE: Axial images through the abdomen and pelvis were performed without contrast.This study was performed with techniques to keep radiation doses as low as reasonably achievable, (ALARA). Individualized dose reduction techniques using automated exposure control or adjustment of mA and/or kV according to the patient's size were employed. CLINICAL HISTORY: urinary retention COMPARISON: 06/12/2017 FINDINGS: ABDOMEN: Scarring is seen at the lung bases. The heart size is normal. Limited images of the liver demonstrate mild, diffuse fatty infiltration. There is cholelithiasis. The spleen is normal. No adrenal mass is identified. The aorta is normal in caliber. There is no significant free fluid or adenopathy. There is no nephrolithiasis. There is no hydronephrosis. Multiple cysts are seen in the right kidney measuring up to 1.9 cm which do not appear to represent simple cysts but favor benign. PELVIS: The appendix is not identified. There is a Lopez catheter within a decompressed urinary bladder. Prostate is mildly enlarged. There is pancolonic diverticulosis without evidence of diverticulitis. There is no significant free fluid or adenopathy. IMPRESSION: Multiple cysts in the right kidney, not simple cyst but favor benign, essentially unchanged from prior exam. Cholelithiasis. Mildly enlarged prostate, stable. Reviewed, Interpreted and Dictated by Mo Galindo MD Transcribed by Kaylah Heller Authenticated by Mo Galindo MD on 05/27/2021 04:58:23 PM [facility]
[2021-05-27 15:30] LABS: Appearance,Urine TURBID (Clear); Bilirubin,Urine Negative (Negative); Blood, Urine 2+ (Negative); Color,Urine YELLOW (Yellow); Glucose,Urine (UA) Negative (Negative); Ketones,Urine Negative (Negative); Leukocyte Esterase,Urine 3+ (Negative); Nitrate,Urine POSITIVE (Negative); Protein,Urine 1+ (Negative); Specific Gravity, Urine 1.015 (1.005-1.030); Urobilinogen,Urine 0.2 EU/dl (0.2)
[2021-05-27 15:44] LABS: Bacteria,Urine 3+ /lpf; Squamous Epithelial Cell,Urine Occasional #/hpf (0-5); WBC,Urine 50-100 #/hpf (0-3)
--- NOTE | 2021-05-27 16:00 | PC.NURSE ---
PT VOIDED APPROX 50CC URINE RAM CATH INSERTED WITH 500CC URINE RETURN
[2021-05-27 16:19] LABS: Basophils % 0.2 % (0.1-2.0); Eosinophils # 0.2 K/mm3 (0.0-0.4); Eosinophils % 1.3 % (0.1-12.0); Hematocrit 49.8 % (42.0-52.0); Hemoglobin 16.1 g/dL (14.1-18.0); Lymphocytes # 1.2 K/mm3 (0.7-4.5); Lymphocytes % 8.1 % (10-50); Mean Corpuscular HGB Conc 32.3 g/dL (31.8-35.4); Mean Corpuscular Hemoglobin 31.3 pg (27.0-31.2); Mean Corpuscular Volume 96.8 fl (80-94); Mean Platelet Volume 10.2 fl (7.4-10.4); Monocytes # 0.5 K/mm3 (0.1-1.0); Monocytes % 3.4 % (1.7-9.3); Neutrophils # 12.7 K/mm3 (1.8-7.8); Platelet Count 224 K/mm3 (142-424); Red Blood Count 5.15 M/mm3 (4.60-6.20); Red Cell Distribution Width 14.5 % (11.5-17.5); White Blood Count 14.6 K/mm3 (4.8-10.8)
[2021-05-27 16:20] LABS: Alanine Aminotransferase 24 U/L (12-78); Albumin Level 4.7 g/dl (3.5-5.0); Albumin/Globulin Ratio 1.2 (1.1-1.8); Alkaline Phosphatase 125 U/L (38-126); Anion Gap 15.5 mEq/L (5-15); Aspartate Amino Transferase 29 U/L (17-59); Blood Urea Nitrogen 33 mg/dl (9-20); Calcium 9.8 mg/dl (8.4-10.2); Carbon Dioxide 25 mmol/L (22.0-30.0); Chloride 104 mmol/L (98-107); Creatinine Clearance Estimated 49 mL/min (50-200); Estimated Glomerular Filt Rate 43 ml/min (>60); GFR (African American) 52 ML/MIN (>60); Globulin 3.8 g/dL (1.3-3.2); Glucose 140 mg/dl (74-100); Potassium 4.5 mmoL/L (3.5-5.1); Sodium 140 mmol/L (136-145); Total Protein,Serum 8.5 g/dl (6.3-8.2)
[2021-05-27 16:40] LABS: MANUAL DIFFERENTIAL MANUAL DIFFERENTIAL (MANUAL DIFF)
[2021-05-27 18:00] VITALS: BP 141/90; PULSE 81; RESP 18; O2SAT 98
--- NOTE | 2021-05-27 18:00 | HMH.EDGENADL ---
ED Disposition Clinical Impression: UTI (urinary tract infection) Qualifiers: Urinary tract infection type: site unspecified Hematuria presence: with hematuria Qualified Code(s): N39.0 - Urinary tract infection, site not specified; R31.9 - Hematuria, unspecified Abdominal pain Qualifiers: Abdominal location: generalized Qualified Code(s): R10.84 - Generalized abdominal pain BPH (benign prostatic hyperplasia) Qualifiers: Lower urinary tract symptom presence: symptoms present Lower urinary tract symptom detail: incomplete bladder emptying Qualified Code(s): N40.1 - Benign prostatic hyperplasia with lower urinary tract symptoms; R39.14 - Feeling of incomplete bladder emptying Disposition: Home, Self-Care Condition on Discharge: Good Instructions: DI for Urinary Retention in Men Prescriptions: cephALEXin [Cephalexin 500mg Tab] 500 mg PO BID #20 tab Transmission Status: Pending to [facility] Referrals: Guzman Rodríguez MD [Primary Care Provider] - Meir Wilkerson MD [Staff Physician] - - Critical Care Critical Care Time: No Attestation: On 05/27/21, the high probability of a clinically significant, sudden or life threatening deterioration of the following system(s) required my full and direct attention, intervention and personal management. The time I documented below is in addition to time spent performing reported procedures but includes the following listed in this critical care notation. Medical Decision Making - Medical Records Medical records reviewed: Yes: I reviewed the patient's medical records. - Cuco Inquiry Pt receiving controlled substance: No Vital Signs: 05/27/21 14:34 05/27/21 15:15 Temperature 98.3 F 98 F Temperature Source Oral Oral Pulse Rate [Right Brachial] 103 H 78 Respiratory Rate 18 16 Blood Pressure [Right Arm] 128/81 131/83 Blood Pressure Mean [Right Arm] 96 99 Blood Pressure Source [Right Arm] Automatic Cuff Blood Pressure Position [Right Arm] Sitting Sitting 02 Sat by Pulse Oximetry 97 98 Oxygen Delivery Method Room Air Room Air - Lab Data Lab Results 05/27/21 14:30: Urine Color Yellow, Urine Appearance Turbid, Urine pH 6.0, Ur Specific House 1.015, Urine Protein 1+, Urine Glucose (UA) Negative, Urine Ketones Negative, Urine Blood 2+, Urine Nitrate Positive, Urine Bilirubin Negative, Urine Urobilinogen 0.2, Ur Leukocyte Esterase 3+ A, Urine RBC 10-20, Urine WBC 50-100, Ur Squamous Epith Cells Occasional, Urine Bacteria 3+ 05/27/21 15:46: WBC 14.6 H, RBC 5.15, Hgb 16.1, Hct 49.8, MCV 96.8 H, MCH 31.3 H, MCHC 32.3, RDW 14.5, Plt Count 224, MPV 10.2, Neut % (Auto) 87.0 H, Lymph % (Auto) 8.1 L, [place] % (Auto) 3.4, Eos % (Auto) 1.3, Baso % (Auto) 0.2, Neut # (Auto) 12.7 H, Lymph # (Auto) 1.2, [place] # (Auto) 0.5, Eos # (Auto) 0.2, Baso # (Auto) 0.0 05/27/21 15:46: Sodium 140, Potassium 4.5, Chloride 104, Carbon Dioxide 25, Anion Gap 15.5 H, BUN 33 H, Creatinine 1.60 H, Estimated Creat Clear 49, Estimated GFR 43 L, Est GFR ( Amer) 52 L, Glucose 140 H, Calcium 9.8, Total Bilirubin 1.0, AST 29, ALT 24, Alkaline Phosphatase 125, Total Protein 8.5 H, Albumin 4.7, Globulin 3.8 H, Albumin/Globulin Ratio 1.2 Result diagrams: 05/27/21 15:46 05/27/21 15:46 Orders (Tests/Meds): ED MEDICATIONS Generic Name Dose Route Start Last Admin Trade Name Terrellq PRN Reason Stop Dose Admin Ceftriaxone Sodium 1 gm/ 50 mls @ 100 mls/hr 05/27/21 17:00 05/27/21 17:00 Sodium Chloride IV 06/10/21 16:59 100 mls/hr Q24H [place] Administration Sodium Chloride 1,000 mls @ 999 mls/hr 05/27/21 17:45 05/27/21 17:37 Sod Chlor 0.9% 1000ml Bag IV 05/27/21 18:45 999 mls/hr .Q1H1M [place] Administration ORDERS Category Date Time Status Complete Blood Count Auto Diff Stat Lab 05/27/21 15:46 Results Urine Culture Stat Micro 05/27/21 14:30 Received - CT Data CT Scan: Abdomen, Pelvis Time Received: 18:[address] Reviewed: Yes: I have reviewed the patient's CT resu
[2021-05-27 18:10] LABS: Lymphocytes % 6 % (10-50); Monocytes % 5 % (2-9); Neutrophils % 88 % (42-76); Platelet Estimate Normal; Total Cells Counted 100
--- NOTE | 2021-05-27 18:30 | PC.NURSE ---
LEG BAG APPLIED
[2021-05-27 18:31] VITALS: BP 123/65; PULSE 78; RESP 16; TEMP 36.6; O2SAT 98
== END 2021-05-27 18:33 | disposition home or self-care (01) ==
LOC: UTC 13:26 → ER 15:21
PROVIDERS: Nurse Practitioner Family; Emergency Provider Emergency Medicine; PCP Emergency Medicine
DX: N30.01 Acute cystitis with hematuria (principal); N40.1 Benign prostatic hyperplasia with lower urinary tract symptoms; E11.9 Type 2 diabetes mellitus without complications; Z87.891 Personal history of nicotine dependence
CPT/HCPCS: 51702; 74176; 80053; 81001; 85007; 85025; 87086; 87088; 87186; 96365; 96367; 99284; J0696

== ENCOUNTER 2021-05-31 07:18 | Emergency (ER) | payer MEDICARE, MEDICAID, SELFPAY ==
[2021-05-31 07:19] VITALS: BP 107/77; PULSE 89; RESP 16; TEMP 37.1; O2SAT 98; BMI 25.1
[2021-05-31 07:30] VITALS: BP 116/78; PULSE 79; RESP 16; O2SAT 98
[2021-05-31 08:00] VITALS: BP 124/79; PULSE 83; RESP 15; O2SAT 96
--- NOTE | 2021-05-31 08:22 | PC.NURSE ---
Dr Rodríguez spoke with Dr Wilkerson and the pt. Pt is going to D/C with his campo in place following education from nurses on how to properly remove campo should complications arise, and follow up in office on Thursday.
[2021-05-31 08:33] VITALS: BP 121/74; PULSE 78; RESP 16; TEMP 36.6; O2SAT 98
== END 2021-05-31 08:34 | disposition home or self-care (01) ==
LOC: ER 07:23
PROVIDERS: Emergency Provider Emergency Medicine; PCP Emergency Medicine
DX: R31.9 Hematuria, unspecified (principal)
CPT/HCPCS: 99281

== ENCOUNTER 2021-06-02 14:57 | Emergency (ER) | payer MEDICARE, MEDICAID, SELFPAY ==
[2021-06-02 14:58] VITALS: BP 110/82; PULSE 98; RESP 16; TEMP 36.6; O2SAT 96; BMI 25.5
--- NOTE | 2021-06-02 15:26 | HMH.EDGENADL ---
ED Disposition Clinical Impression: Malfunction of Campo catheter Qualifiers: Encounter type: initial encounter Qualified Code(s): T83.011A - Breakdown (mechanical) of indwelling urethral catheter, initial encounter Disposition: Home, Self-Care Condition on Discharge: Good Instructions: How to Care for Your Campo Catheter -- Male Referrals: Guzman Rodríguez MD [Primary Care Provider] - - Critical Care Critical Care Time: No Attestation: On 06/02/21, the high probability of a clinically significant, sudden or life threatening deterioration of the following system(s) required my full and direct attention, intervention and personal management. The time I documented below is in addition to time spent performing reported procedures but includes the following listed in this critical care notation. Medical Decision Making - Medical Records Medical records reviewed: Yes: I reviewed the patient's medical records. - Cuco Inquiry Pt receiving controlled substance: No Vital Signs: 06/02/21 14:58 Temperature 97.9 F Temperature Source Oral Pulse Rate [Right Radial] 98 H Respiratory Rate 16 Blood Pressure [Right Arm] 110/82 Blood Pressure Mean [Right Arm] 91 Blood Pressure Source [Right Arm] Automatic Cuff Blood Pressure Position [Right Arm] Sitting 02 Sat by Pulse Oximetry 96 Oxygen Delivery Method Room Air Medical Decision Narrative: 70-year-old male presented to the emergency department with some urinary catheter issues. The patient states that he has been unable to empty his leg bag. He also noted some blood in his urine. We did attempt to empty the leg bag at bedside, however the draining apparatus appears to be malfunctioning. We did replace the bag and it is draining without any issues. Patient is actually scheduled for removal tomorrow morning as an outpatient. Patient is to maintain this appointment. He was given strict return precautions. Verbalized understanding. General Adult HPI - General Chief complaint: Urogenital-Male Stated complaint: blood in catheter, not draining Time Seen by Provider: 06/02/21 15:05 Mode of Arrival: Ambulatory Limitations: No Limitations Description of Symptoms (Recalled from ER Triage Doc. by RN): Pt c/o blood in his campo bag. Pt states that he has an appt tomorrow to f/u with PCP for possible removal of campo. - History of Present Illness HPI narrative: This is a 70-year-old male presented to the emergency department with difficulties with his urinary catheter. The patient has been seen multiple times here before. He was diagnosed with UTI as well as some urinary retention. His longstanding history of BPH. I have left Campo catheter in. He actually has follow-up in the morning for catheter removal. Patient got concerned because he noted some blood in his bag. His back did fill up, however he has not been able to drain it. He thinks it is not working. He is not complaining of any abdominal pain. No fevers or chills. No headache or change in vision. No focal weakness. No chest pain or shortness of breath. - Related Data Home Medications Medication Instructions Recorded Confirmed aspirin 81 mg tablet,delayed 81 mg PO DAILY tab 05/27/17 05/27/21 release Finasteride [Proscar] 5 mg PO DAILY 05/27/21 05/27/21 Levothyroxine Sodium [Synthroid 1 tab PO DAILY 05/27/21 05/27/21 25mcg (0.025mg) tablet] Metformin HCl See Rx Instructions .ROUTE .COMPLEX 05/27/21 05/27/21 Rivaroxaban [Xarelto] 20 mg PO DAILY 05/27/21 05/27/21 Tamsulosin HCl 0.4 mg PO DAILY 05/27/21 05/27/21 Previous Rx's Medication Instructions Recorded ibuprofen 800 mg tablet 800 mg PO BID #60 tab 01/29/21 ondansetron 4 mg disintegrating 4 mg PO Q6H #30 tab 01/29/21 tablet Dicyclomine HCl [Bentyl 10mg 10 mg PO TID PRN #15 cap 04/18/21 capsule] cephALEXin [Cephalexin 500mg Tab] 500 mg PO BID #20 tab 05/27/21 Allergies Allergy/AdvReac Type Severity Reaction Status Date / Time N
[2021-06-02 15:56] VITALS: BP 113/81; PULSE 96; RESP 16; TEMP 36.7; O2SAT 97
== END 2021-06-02 15:57 | disposition home or self-care (01) ==
PROVIDERS: Emergency Provider Emergency Medicine; PCP Emergency Medicine
DX: T83.011A Breakdown (mechanical) of indwelling urethral catheter, initial encounter (principal)
CPT/HCPCS: 99281

== ENCOUNTER 2021-06-02 20:26 | Emergency (ER) | payer MEDICARE, MEDICAID, SELFPAY ==
--- NOTE | 2021-06-02 20:36 | PC.NURSE ---
Pt came for RAM CATH removal per nursing staff. Removed per dye house hand. Left via ambulation.
[2021-06-02 20:37] VITALS: BP 129/70; PULSE 72; RESP 18; TEMP 36.7; O2SAT 99
== END 2021-06-02 20:38 | disposition left against medical advice (07) ==
LOC: ER 20:32
PROVIDERS: Emergency Provider Emergency Medicine; PCP Emergency Medicine
DX: T83.011A Breakdown (mechanical) of indwelling urethral catheter, initial encounter (principal)
CPT/HCPCS: 99281

== ENCOUNTER 2021-06-08 12:30 | Emergency (ER) | payer MEDICARE, MEDICAID, SELFPAY ==
[2021-06-08 13:05] VITALS: BP 118/70; PULSE 63; RESP 17; TEMP 36.8; O2SAT 97; BMI 22.6
--- NOTE | 2021-06-08 13:15 | HMH.EDUTC ---
[facility] [place] Disposition Clinical Impression: UTI (urinary tract infection) Qualifiers: Urinary tract infection type: acute cystitis Hematuria presence: with hematuria Qualified Code(s): N30.01 - Acute cystitis with hematuria Disposition: Home, Self-Care Condition on Discharge: Good Instructions: Urinary Tract Infection Additional Instructions: Increase fluids, water and not soda or tea. Can drink cranberry juice or cranberry extract. Start antibiotics immediately and make sure you take the full course although you may start to see improvement over the next 48 hours. You can eat yogurt or take probiotics to decrease diarrhea or yeast infection caused by the antibiotic Be sure to follow-up anytime for new or worsening symptoms in 48 hours for wound urine culture results be sure to let you PCP no recent urine for culture so they can request records and ensure that you have appropriate antibiotic if you are not getting better or getting worse. If symptoms worsen or do not improve return or be seen in the ER. Follow-up with primary care this week. Prescriptions: cephALEXin [Cephalexin 500mg Tab] 500 mg PO BID 10 Days #20 tab Transmission Status: Pending to [id number] Referrals: Guzman Rodríguez MD [Primary Care Provider] - Time of Disposition: 13:18 Medical Decision Making - Cuco Inquiry Pt receiving controlled substance: No Orders (Tests/Meds): ORDERS Category Date Time Status Urine Culture Stat Micro 06/08/21 13:14 Ordered [facility] [place] HPI - General Chief complaint: Urgent Treatment Center Stated complaint: dark urine Time Seen by Provider: 06/08/21 13:15 Mode of Arrival: Ambulatory Source of Information: Patient Limitations: No Limitations - History of Present Illness Provider Complaint: 70 yr old male presnts for bloody urine and freq for 3 days. pt states he has been treated for uti and improved but over the last few days the blood in urine started. - Related Data Home Medications Medication Instructions Recorded Confirmed aspirin 81 mg tablet,delayed 81 mg PO DAILY tab 05/27/17 06/03/21 release Finasteride [Proscar] 5 mg PO DAILY 05/27/21 06/03/21 Levothyroxine Sodium [Synthroid 1 tab PO DAILY 05/27/21 06/03/21 25mcg (0.025mg) tablet] Metformin HCl See Rx Instructions .ROUTE .COMPLEX 05/27/21 06/03/21 Rivaroxaban [Xarelto] 20 mg PO DAILY 05/27/21 06/03/21 Tamsulosin HCl 0.4 mg PO DAILY 05/27/21 06/03/21 Previous Rx's Medication Instructions Recorded ibuprofen 800 mg tablet 800 mg PO BID #60 tab 01/29/21 ondansetron 4 mg disintegrating 4 mg PO Q6H #30 tab 01/29/21 tablet cephALEXin [Cephalexin 500mg Tab] 500 mg PO BID #20 tab 05/27/21 cephALEXin [Cephalexin 500mg Tab] 500 mg PO BID 10 Days #20 tab 06/08/21 Allergies Allergy/AdvReac Type Severity Reaction Status Date / Time No Known Drug Allergies Allergy Verified 05/09/21 10:19 No Known Allergies Allergy Unknown Uncoded 02/26/21 11:10 [facility] History - Hepatitis A Screen Attestation statement:: This patient has been screened for Hepatitis A risk factors. I have reviewed the patient's past medical history: Yes 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: Reports:: Deep Vein Thrombosis, Diabetes Mellitus Type 2, Kidney Stones Denies:: Cancer, Diabetes Mellitus Type 1, Internal Pacemaker, Lung Disease, MRSA, Seizures Other 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: Reports: Cataracts, Thyroid Disease. Denies: Blood Transfusion Reaction Comment: enlarged prostate,neuropathy Laterality Cases: Bilateral: Tonsillectomy Other Surgeries: Yes: Colonoscopy, Other. No: Pacemaker Amputation: No Fractures: No Comment: disectomy,filter for DVTs,plate in neck vertebrae,kidney stone removal - Social History Smoking Status: Former smoker Alcohol Intake: never Substance Use Type: denies use, heroin Occupational Status: retired Housing: house Household Members: spouse Family Hx:: Cancer ROS Obtained: Yes Systems reviewed as appropriate & no additional complaints - Constitu
[2021-06-08 13:17] VITALS: BP 118/70; PULSE 63; RESP 17; TEMP 36.8; O2SAT 97
[2021-06-08 13:28] LABS: Color,Urine Amber (Yellow)
[2021-06-08 13:29] LABS: Apearance,Urine Turbid (Clear); Bilirubin,Urine 2+ (Negative); Blood, Urine 3+ (Negative); Glucose,Urine (UA) Negative (Negative); Ketones,Urine TRACE (Negative); Protein,Urine 2+ (Negative); Specific Gravity, Urine 1.025 (1.005-1.030); UTC Leukocyte Esterase,Urine Trace (Negative); Urobilinogen,Urine 1 EU/dl (0.2)
[2021-06-08 13:30] LABS: UTC Nitrate,Urine Negative (Negative)
== END 2021-06-08 13:23 | disposition home or self-care (01) ==
PROVIDERS: Emergency Provider Nurse Practitioner Family; PCP Emergency Medicine
DX: N30.01 Acute cystitis with hematuria (principal); H26.9 Unspecified cataract; E11.40 Type 2 diabetes mellitus with diabetic neuropathy, unspecified; E07.9 Disorder of thyroid, unspecified; N40.0 Benign prostatic hyperplasia without lower urinary tract symptoms; Z79.1 Long term (current) use of non-steroidal anti-inflammatories (NSAID); Z79.82 Long term (current) use of aspirin; Z79.84 Long term (current) use of oral hypoglycemic drugs; Z79.899 Other long term (current) drug therapy; Z87.891 Personal history of nicotine dependence; Z80.9 Family history of malignant neoplasm, unspecified
CPT/HCPCS: 81003; 87086; 99213; G0463

== ENCOUNTER 2021-06-08 20:09 | Emergency (ER) | payer MEDICARE, MEDICAID, SELFPAY ==
[2021-06-08 20:27] VITALS: BP 138/83; PULSE 70; RESP 20; TEMP 36.8; O2SAT 98
== END 2021-06-08 20:43 | disposition left against medical advice (07) ==
LOC: ER 20:39
PROVIDERS: Emergency Provider Emergency Medicine; PCP Emergency Medicine
DX: Z53.21 Procedure and treatment not carried out due to patient leaving prior to being seen by health care provider (principal)
CPT/HCPCS: G0463; 99211

== ENCOUNTER → 2021-06-28 19:45 | Outpatient (CLI) | payer MEDICARE, MEDICAID, SELFPAY ==
[2021-06-28 14:21] LABS: Microscopic, Urine URINE MICROSCOPIC (MICROSCOPIC)
[2021-06-28 15:41] LABS: Appearance,Urine CLEAR (Clear); Bilirubin,Urine Negative (Negative); Blood, Urine Negative (Negative); Color,Urine YELLOW (Yellow); Glucose,Urine (UA) Negative (Negative); Ketones,Urine Negative (Negative); Leukocyte Esterase,Urine Negative (Negative); Nitrate,Urine Negative (Negative); PH,Urine 5.5 (5.0-8.5); Protein,Urine TRACE (Negative); Specific Gravity, Urine 1.025 (1.005-1.030); Urobilinogen,Urine 0.2 EU/dl (0.2)
[2021-06-28 17:48] LABS: RBC,Urine Occasional #/hpf (0-3); Squamous Epithelial Cell,Urine Occasional #/hpf (0-5)
== END ==
PROVIDERS: Visit Provider Emergency Medicine
DX: N39.0 Urinary tract infection, site not specified (principal); R82.90 Unspecified abnormal findings in urine
CPT/HCPCS: 81001; 87086

== ENCOUNTER 2021-07-23 09:36 | Emergency (ER) | payer MEDICARE, MEDICAID, SELFPAY ==
--- NOTE | 2021-07-23 10:01 | HMH.EDUTC ---
[facility] [place] Disposition Clinical Impression: Pleuritic chest pain Thoracic back pain Qualifiers: Chronicity: acute Back pain laterality: unspecified Qualified Code(s): M54.6 - Pain in thoracic spine Disposition: Home, Self-Care Condition on Discharge: Good Instructions: Thoracic Back Pain Additional Instructions: Go home and rest. It would be best if you rested tomorrow too. No heavy lifting. No twisting. Take the oral medications as directed. The muscle relaxer (cyclobenzaprine--Flexeril) will make you drowsy, so don't drive or operate heavy machinery after taking it. Don't start the oral steroids (medrol dose pack) until tomorrow, since you had the shots in here today. Follow up with your regular doctor. GO TO THE ER FOR ANY WORSENING SYMPTOMS OR CONCERN, ESPECIALLY BOWEL OR BLADDER ISSUES, SADDLE AREA NUMBNESS, FEVER, ETC The steroids (medrol dose pack) will cause you to have higher blood sugars while you are on them. Please follow your diet closely and check your blood sugars as prescribed. Prescriptions: Cyclobenzaprine HCl [Cyclobenzaprine 10mg Tab] 10 mg PO BIDP PRN #20 tab PRN Reason: Muscle Spasm Transmission Status: Pending to [id number] methylPREDNISolone [Medrol] 4 mg PO DIRECTED 6 Days #21 packet [facility]: [id number] Referrals: Guzman Rodríguez MD [Primary Care Provider] - Time of Disposition: 11:25 Medical Decision Making - Medical Records Medical records reviewed: No: I reviewed the patient's medical records. - Cuco Inquiry Pt receiving controlled substance: No Vital Signs: 07/23/21 10:05 Temperature 99.1 F Temperature Source Oral Pulse Rate [Left] 94 H Respiratory Rate 16 Blood Pressure [Right Arm] 134/74 Blood Pressure Mean [Right Arm] 94 02 Sat by Pulse Oximetry 96 Orders (Tests/Meds): ED MEDICATIONS Discontinued Medications Generic Name Dose Route Start Last Admin Trade Name Freq PRN Reason Stop Dose Admin Ketorolac Tromethamine 60 mg 07/23/21 11:05 Ketorolac 60mg/2ml Vial IM 07/23/21 11:06 ONCE ONE Methylprednisolone Sodium Succinate 125 mg 07/23/21 11:05 Methylprednisolone Sod Succ 125mg Vial IM 07/23/21 11:06 ONCE ONE ORDERS Category Date Time Status Chest XR 2 view (NOT portable) [XR chest 2V] Stat Exams 07/23/21 10:24 Taken XR thoracic spine 3V Stat Exams 07/23/21 10:24 Taken [facility] [place] HPI - General Stated complaint: back pain Time Seen by Provider: 07/23/21 10:01 - History of Present Illness Provider Complaint: He c/o middle back pain that is located more to the left side. This pain started around 3 weeks ago. He denies any injury. He denies any fever or chills. He states that when he coughs or breathes deep the pain is worse. He has taken ibuprofen and hydrocodone at home with very little relief. He states the pain is a 5/10 at this time. At its worst it is 9/10. - Related Data Home Medications Medication Instructions Recorded Confirmed Finasteride [Proscar] 5 mg PO DAILY 05/27/21 06/28/21 Metformin HCl See Rx Instructions .ROUTE .COMPLEX 05/27/21 06/28/21 Rivaroxaban [Xarelto] 20 mg PO DAILY 05/27/21 06/28/21 Tamsulosin HCl 0.4 mg PO DAILY 05/27/21 06/28/21 ibuprofen 800 mg tablet 800 mg PO BID PRN tab 06/10/21 06/28/21 Previous Rx's Medication Instructions Recorded levothyroxine 25 mcg tablet See Rx Instructions .ROUTE 07/15/21 .COMPLEX #90 tablet Cyclobenzaprine HCl 10 mg PO BIDP PRN #20 tab 07/23/21 [Cyclobenzaprine 10mg Tab] methylPREDNISolone [Medrol] 4 mg PO DIRECTED 6 Days #21 07/23/21 packet Allergies Allergy/AdvReac Type Severity Reaction Status Date / Time No Known Drug Allergies Allergy Verified 06/28/21 11:40 No Known Allergies Allergy Unknown Uncoded 06/28/21 11:40 [facility] History - Hepatitis A Screen Attestation statement:: This patient has been screened for Hepatitis A risk factors. I have reviewed t
[2021-07-23 10:05] VITALS: BP 134/74; PULSE 94; RESP 16; TEMP 37.3; O2SAT 96; BMI 44.9
--- NOTE | 2021-07-23 10:24 | XR_ITS ---
FINAL REPORT CLINICAL HISTORY: thoracic back pain, no injury FINDINGS: THORACIC SPINE Three views were obtained. There is no acute fracture. There is no malalignment. There is dextroscoliosis. There are mild degenerative changes. There is no soft tissue abnormality. IMPRESSION: Mild degenerative change. Reviewed, Interpreted and Dictated by Farrukh Garduno III, MD Transcribed by Juanita Arenas Authenticated by Farrukh Garduno III, MD on 07/23/2021 11:25:29 AM [facility]
--- NOTE | 2021-07-23 10:24 | XR_ITS ---
FINAL REPORT CLINICAL HISTORY: cough, congestion COMPARISON: April 18 2021 FINDINGS: Two views of the chest were obtained. The heart size and pulmonary vascularity are within normal limits. The mediastinum is normal. There is mild atelectasis or scarring in the lung bases. There is no pneumothorax. There is a stable probable enchondroma in the proximal right humerus. IMPRESSION: Mild atelectasis or scarring in the lung bases. Reviewed, Interpreted and Dictated by Farrukh Garduno III, MD Transcribed by Juanita Arenas Authenticated by Farrukh Garduno III, MD on 07/23/2021 11:25:31 AM [facility]
[2021-07-23 11:29] VITALS: BP 134/74; PULSE 94; RESP 16; TEMP 37.3
== END 2021-07-23 11:36 | disposition home or self-care (01) ==
PROVIDERS: Emergency Provider Nurse Practitioner Family; PCP Emergency Medicine
DX: R07.89 Other chest pain (principal); M54.6 Pain in thoracic spine; E11.9 Type 2 diabetes mellitus without complications; Z87.891 Personal history of nicotine dependence
CPT/HCPCS: 71046; 72072; 96372; 99213; G0463

== ENCOUNTER 2021-08-02 13:04 | Emergency (ER) | payer MEDICARE, MEDICAID, SELFPAY ==
[2021-08-02 13:05] VITALS: BP 148/72; PULSE 83; RESP 18; TEMP 36.8; O2SAT 95; BMI 18.6
--- NOTE | 2021-08-02 13:27 | HMH.EDUTC ---
[facility] [place] Disposition Clinical Impression: Thoracic back pain Qualifiers: Chronicity: unspecified Back pain laterality: left Qualified Code(s): M54.6 - Pain in thoracic spine Disposition: Home, Self-Care Condition on Discharge: Good Instructions: DI for Muscle Spasm Additional Instructions: *Over the counter Tylenol as directed on package for pain Over the counter muscle rubs like Biofreeze may help you with muscle tightness and pain Make sure to move around, movement even though may be a little painful can help with stiff tight muscles *Ice 20 minutes every 2 hours for the first 48 hours after the initial injury followed by moist heat every 20 minutes 3-4 times a day to affected area *Muscle relaxer every 8 hours as needed for muscle spasms but remember, it WILL cause drowsiness You cannot take it and drive, operate machinery or care for small children. *Keep this area active, no movement leads to more stiffness, However take it easy and avoid heavy lifting pushing or pulling *Follow up with you family doctor if no improvement for further treatment Return if needed Straight to ER If any life threatening symptoms Prescriptions: methylPREDNISolone [Medrol 4mg tab] 4 mg PO DIRECTED #21 tab Transmission Status: Received by [id number] Tizanidine HCl [Zanaflex 4mg tab] 4 mg PO TID PRN #12 tab PRN Reason: Muscle Spasm Transmission Status: Received by [id number] Referrals: Guzman Rodríguez MD [Primary Care Provider] - As needed Time of Disposition: 13:47 Medical Decision Making - Cuco Inquiry Pt receiving controlled substance: No Cuco was queried for this patient: No Vital Signs: 08/02/21 13:05 08/02/21 14:00 Temperature 98.2 F 98.2 F Temperature Source Oral Pulse Rate 83 Pulse Rate [Left Brachial] 83 Respiratory Rate 18 18 Blood Pressure 148/72 H Blood Pressure [Left Arm] 148/72 H Blood Pressure Mean [Left Arm] 97 Blood Pressure Source [Left Arm] Automatic Cuff Blood Pressure Position [Left Arm] Sitting 02 Sat by Pulse Oximetry 95 Oxygen Delivery Method Room Air Medical Decision Narrative: Discussed xray findings of dextroscoliosis and discussed transfer to the ED for CT if needed and further work up and evaluation and patient declined states that he had xray of his back and chest xray last time he was here and medication helped with pain but he is out so he came in to see if he could get something else [facility] [place] HPI - General Stated complaint: back pain Time Seen by Provider: 08/02/21 13:28 Mode of Arrival: Ambulatory Source of Information: Patient Limitations: No Limitations Description of Symptoms (Recalled from Triage Doc. by RN): PATIENT UPPER BACK PAIN THAT SOMETIMES RADIATES AROUND TO FRONT THAT'S BEEN GOING ON FOR A WHILE. HE STATES HE WAS SEEN HERE A FEW WEEKS AGO FOR SAME PROBLEM, BUT THE PAIN IS STILL THERE AND IS A LITTLE WORSE HEENT Symptoms (Recalled from RN notes): No Resp Symptoms (Recalled from RN notes): No Skin Symptoms (Recalled from RN notes): No MS Symptoms (Recalled from RN notes): Yes Functional Status (Recalled from RN notes): WNL - History of Present Illness Provider Complaint: Patient states that he has been having pain in his mid upper back around his shoulder blade area that at times will come around his side with certain movements States he was here a few weeks ago and was given muscle relaxers and steriods and it helped some but he is out and now the pain is back States that he has not done anything else to hurt it that he is aware of but came in to see if there was something else he can get or take Denies loss of control of bowel or bladder denies fever, chills or body aches - Related Data Home Medications Medication Instructions Recorded Confirmed Finasteride [Proscar] 5 mg PO DAILY 05/27/21 08/02/21 Metformin HCl 500 mg PO BID 05/27/21 08/02/21 Rivaroxaban [Xarelto] 20 mg PO DAILY 05/27/21 08/02/21 Tamsulosin HCl 0.4 mg PO DAILY
[2021-08-02 14:00] VITALS: BP 148/72; PULSE 83; RESP 18; TEMP 36.8; O2SAT 95
== END 2021-08-02 14:05 | disposition home or self-care (01) ==
PROVIDERS: Emergency Provider Nurse Practitioner; PCP Emergency Medicine
DX: M54.6 Pain in thoracic spine (principal); E11.9 Type 2 diabetes mellitus without complications
CPT/HCPCS: 99212; G0463

== ENCOUNTER 2021-08-07 11:22 | Inpatient (IN) | payer MEDICARE, MEDICAID, SELFPAY ==
[2021-08-07] VITALS (9 sets, daily range): BP systolic 117–137; BP diastolic 80–95; PULSE 65–85; RESP 16–20; TEMP 36.3–36.5; O2SAT 97–100; BMI 20.3
--- NOTE | 2021-08-07 11:37 | HMH.EDGENADL ---
ED Disposition Clinical Impression: Discitis of thoracic region, Osteomyelitis of thoracic spine Disposition: Admitted As Inpatient Condition on Discharge: Serious Referrals: Guzman Rodríguez MD [Primary Care Provider] - - Critical Care Critical Care Time: No Attestation: On 08/07/21, the high probability of a clinically significant, sudden or life threatening deterioration of the following system(s) required my full and direct attention, intervention and personal management. The time I documented below is in addition to time spent performing reported procedures but includes the following listed in this critical care notation. Medical Decision Making - Medical Records Medical records reviewed: Yes: I reviewed the patient's medical records. MR Comment: Reviewed urgent treatment center visit 07/23/2021 for back pain. Patient had chest x-ray and thoracic spine x-ray. Treated with Medrol dose pack and Flexeril. Reviewed urgent treatment center visit 08/02/2021 for back pain. No further testing. Treated with Medrol Dosepak and Zanaflex. Also noted that he was seen in the emergency department on 05/27/2021. Diagnosed with abdominal pain and UTI. Had a CT scan of the abdomen and pelvis. Results reviewed. - Cuco Inquiry Pt receiving controlled substance: Yes Cuco was queried for this patient: Yes Risks and benefits of using a controlled substance: were discussed with pt by me Vital Signs: 08/07/21 11:23 08/07/21 14:00 Temperature 97.7 F Temperature Source Oral Pulse Rate 78 Pulse Rate [Right Radial] 85 Respiratory Rate 18 Blood Pressure 137/87 Blood Pressure [Right Arm] 125/90 Blood Pressure Mean [Right Arm] 101 Blood Pressure Source [Right Arm] Automatic Cuff Blood Pressure Position [Right Arm] Sitting 02 Sat by Pulse Oximetry 100 99 Oxygen Delivery Method Room Air - Lab Data Lab Results 08/07/21 11:55: WBC 14.0 H, RBC 4.76, Hgb 14.2, Hct 43.9, MCV 92.2, MCH 29.7, MCHC 32.3, RDW 16.8, Plt Count 424, MPV 8.3, Neut % (Auto) 79.8, Lymph % (Auto) 13.3, [place] % (Auto) 4.2, Eos % (Auto) 2.3, Baso % (Auto) 0.4, Neut # (Auto) 11.2 H, Lymph # (Auto) 1.9, [place] # (Auto) 0.6, Eos # (Auto) 0.3, Baso # (Auto) 0.1, ESR 17 08/07/21 11:55: Sodium 137, Potassium 4.1, Chloride 102, Carbon Dioxide 23, Anion Gap 16.1 H, BUN 27 H, Creatinine 1.10, Estimated Creat Clear 57, Estimated GFR 67, Est GFR ( Amer) 81, Glucose 184 H, Calcium 10.3 H, Total Bilirubin 0.6, AST 19, ALT 18, Alkaline Phosphatase 99, C-Reactive Protein 58.1 H, Total Protein 7.3, Albumin 4.4, Globulin 2.9, Albumin/Globulin Ratio 1.5 08/07/21 11:55: Procalcitonin 0.180 08/07/21 11:55: Urine Color Yellow, Urine Appearance Clear, Urine pH 6.0, Ur Specific [place] 1.020, Urine Protein Trace, Urine Glucose (UA) Negative, Urine Ketones Negative, Urine Blood 1+, Urine Nitrate Negative, Urine Bilirubin Negative, Urine Urobilinogen 0.2, Ur Leukocyte Esterase Negative, Urine RBC Occasional, Urine WBC Occasional, Ur Squamous Epith Cells Occasional, Urine Bacteria 1+ 08/07/21 11:55: Lipase 56 Result diagrams: 08/07/21 11:55 08/07/21 11:55 Orders (Tests/Meds): ED MEDICATIONS Generic Name Dose Route Start Last Admin Trade Name Freq PRN Reason Stop Dose Admin Cefepime HCl 2 gm/ Sodium 100 mls @ 200 mls/hr 08/07/21 15:15 08/07/21 15:40 Chloride IV 08/21/21 15:14 200 mls/hr 1100,2300 [place] Administration Vancomycin/PEG/NADA/Lysine/Water 1.25 gm in 250 mls @ 125 mls/hr 08/07/21 17:00 Vancomycin 1.25gm/250ml (Peg) Premix IV 08/21/21 16:59 Q18H [place] Sodium Chloride 10 ml 08/07/21 11:39 Sodium Chloride 0.9% 10ml Flush Syringe IV 09/06/21 11:38 NEEDED PRN Maintain IV Site Discontinued Medications Generic Name Dose Route Start Last Admin Trade Name Freq PRN Reason Stop Dose Admin Iopamidol 100 ml 08/07/21 13:07 08/07/21 13:09 Iopamidol-370 (76%);100ml Bottle IV 08/07/21 13:08 100 ml ONCE ONE Administr
--- NOTE | 2021-08-07 11:39 | CT_ITS ---
FINAL REPORT CLINICAL HISTORY: back pain COMPARISON: May 27, 2021 FINDINGS: CT OF THE ABDOMEN AND PELVIS WITH CONTRAST Axial CT images of the abdomen and pelvis were obtained after the administration of oral and iv contrast. Coronal reformatted images were also obtained and reviewed.This study was performed with techniques to keep radiation doses as low as reasonably achievable (ALARA). Individualized dose reduction techniques using automated exposure control or adjustment of mA and/or kV according to the patient's size were employed. Abdomen: There is mild scarring in the lung bases.. The heart is normal in size. There are multiple small hepatic cysts. There is no evidence of biliary ductal dilatation. There are multiple gallstones within the gallbladder. There is mild nonspecific gallbladder wall thickening. The spleen is unremarkable. No adrenal mass is present. The pancreas has an unremarkable appearance. There are multiple bilateral renal cysts. There is a posterior right renal mass measuring 20 mm. This does not appear to be a simple cyst but likely represents a mildly complicated cyst. The aorta is normal in caliber. An IVC filter is present. There is no free fluid or adenopathy. Pelvis: The appendix is mildly enlarged measuring 7 mm but without adjacent inflammation to suggest appendicitis. The urinary bladder is unremarkable. There is a right-sided bladder diverticula. The prostate is enlarged, and indents the bladder base. There is widespread diverticulosis. No inflammatory process is seen. There is no evidence of mass or adenopathy. There is no evidence of bowel obstruction. IMPRESSION: Multiple small hepatic cysts. Cholelithiasis. Posterior right renal mass, likely represents a mildly complicated cyst. Widespread diverticulosis. Reviewed, Interpreted and Dictated by Farrukh Garduno III, MD Transcribed by Juanita Arenas Authenticated by Farrukh Garduno III, MD on 08/07/2021 02:31:46 PM [facility]
--- NOTE | 2021-08-07 11:39 | CT_ITS ---
FINAL REPORT CLINICAL HISTORY: back pain FINDINGS: After the administration of IV contrast, axial images through the lumbar spine was performed by computed tomography. Sagittal and coronal reformatted images were obtained and reviewed. Low-dose technique was utilized. Mild and moderate degenerative changes are present. There is severe, L5-S1 disc space narrowing with vacuum disc phenomenon. There is severe L5-S1 neural foraminal narrowing. IMPRESSION: Degenerative changes without acute osseous abnormality. Reviewed, Interpreted and Dictated by Farrukh Garduno III, MD Transcribed by Johanne Louis Authenticated by Farrukh Garduno III, MD on 08/07/2021 02:31:46 PM [facility]
--- NOTE | 2021-08-07 11:50 | CT_ITS ---
FINAL REPORT CLINICAL HISTORY: pain FINDINGS: Axial CT images of the chest were obtained with contrast. Coronal reformatted images were also obtained. This study was performed with techniques to keep radiation doses as low as reasonably achievable, (ALARA). Individualized dose reduction techniques using automated exposure control or adjustment of mA and/or KV according to the patient''''s size were employed. There is no evidence of mediastinal or hilar mass or adenopathy.No axillary mass or adenopathy is identified. On lung window images, no pulmonary mass or dominant pulmonary nodule is identified. There are mild changes of emphysema with mild scarring. Limited images of the upper abdomen reveal no mass or localized inflammatory process. There are findings worrisome for T6-T7 discitis/osteomyelitis with paraspinous soft tissue. IMPRESSION: No mass or localized inflammatory process. Findings worrisome for T6-T7 discitis/osteomyelitis with paraspinous soft tissue. Reviewed, Interpreted and Dictated by Farrukh Garduno III, MD Transcribed by Venkatesh Pacheco Authenticated by Farrukh Garduno III, MD on 08/07/2021 02:31:[address] [facility]
--- NOTE | 2021-08-07 11:50 | CT_ITS ---
FINAL REPORT CLINICAL HISTORY: back pain FINDINGS: After the administration of IV contrast, axial images through the thoracic spine was performed by computed tomography. Sagittal and coronal reformatted images were obtained and reviewed. Low-dose technique was utilized. No fracture is identified. There is irregularity involving the inferior T6 and superior T7 endplates with contrast enhancement of the paraspinous soft tissues. Findings are consistent with T6-7 discitis/osteomyelitis. Schmorl's nodes are seen at several levels. IMPRESSION: Findings are consistent with T6-7 discitis/osteomyelitis. Reviewed, Interpreted and Dictated by Farrukh Garduno III, MD Transcribed by Johanne Louis Authenticated by Farrukh Garduno III, MD on 08/07/2021 02:31:50 PM [facility]
[2021-08-07 12:03] LABS: Microscopic, Urine URINE MICROSCOPIC (MICROSCOPIC)
[2021-08-07 12:06] LABS: Appearance,Urine CLEAR (Clear); Bilirubin,Urine Negative (Negative); Blood, Urine 1+ (Negative); Color,Urine YELLOW (Yellow); Glucose,Urine (UA) Negative (Negative); Ketones,Urine Negative (Negative); Leukocyte Esterase,Urine Negative (Negative); Nitrate,Urine Negative (Negative); Protein,Urine TRACE (Negative); Urobilinogen,Urine 0.2 EU/dl (0.2)
[2021-08-07 12:09] LABS: Basophils # 0.1 K/mm3 (0-0.2); Basophils % 0.4 % (0.1-2.0); Eosinophils # 0.3 K/mm3 (0.0-0.4); Eosinophils % 2.3 % (0.1-12.0); Hematocrit 43.9 % (42.0-52.0); Hemoglobin 14.2 g/dL (14.1-18.0); Lymphocytes # 1.9 K/mm3 (0.7-4.5); Lymphocytes % 13.3 % (10-50); Mean Corpuscular HGB Conc 32.3 g/dL (31.8-35.4); Mean Corpuscular Hemoglobin 29.7 pg (27.0-31.2); Mean Corpuscular Volume 92.2 fl (80-94); Mean Platelet Volume 8.3 fl (7.4-10.4); Monocytes # 0.6 K/mm3 (0.1-1.0); Monocytes % 4.2 % (1.7-9.3); Neutrophils # 11.2 K/mm3 (1.8-7.8); Neutrophils % 79.8 % (37.0-80.0); Platelet Count 424 K/mm3 (142-424); Red Blood Count 4.76 M/mm3 (4.60-6.20); Red Cell Distribution Width 16.8 % (11.5-17.5)
[2021-08-07 12:18] LABS: Lipase 56 U/L (23-300)
[2021-08-07 12:19] LABS: Bacteria,Urine 1+ /lpf; RBC,Urine Occasional #/hpf (0-3); Squamous Epithelial Cell,Urine Occasional #/hpf (0-5); WBC,Urine Occasional #/hpf (0-3)
[2021-08-07 12:26] LABS: Chloride 102 mmol/L (98-107)
[2021-08-07 12:27] LABS: Potassium 4.1 mmoL/L (3.5-5.1); Sodium 137 mmol/L (136-145)
[2021-08-07 12:29] LABS: Alanine Aminotransferase 18 U/L (12-78); Aspartate Amino Transferase 19 U/L (17-59); Blood Urea Nitrogen 27 mg/dl (9-20); Creatinine Clearance Estimated 57 mL/min (50-200); Estimated Glomerular Filt Rate 67 ml/min (>60); GFR (African American) 81 ML/MIN (>60)
[2021-08-07 12:30] LABS: Albumin Level 4.4 g/dl (3.5-5.0); Albumin/Globulin Ratio 1.5 (1.1-1.8); Alkaline Phosphatase 99 U/L (38-126); Anion Gap 16.1 mEq/L (5-15); Bilirubin,Total 0.6 mg/dl (0.2-1.3); Calcium 10.3 mg/dl (8.4-10.2); Carbon Dioxide 23 mmol/L (22.0-30.0); Globulin 2.9 g/dL (1.3-3.2); Glucose 184 mg/dl (74-100); Total Protein,Serum 7.3 g/dl (6.3-8.2)
[2021-08-07 12:35] LABS: C-Reactive Protein 58.1 mg/L (0-4)
[2021-08-07 12:38] LABS: Erythrocyte Sedimentation Rate 17 mm/hr (0-20)
--- NOTE | 2021-08-07 12:48 | PC.NURSE ---
Pt to rad
--- NOTE | 2021-08-07 13:07 | PC.NURSE ---
Pt returned from rad
--- NOTE | 2021-08-07 14:43 | PC.NURSE ---
waiting communications department chair back from Dr. Rodríguez, office staff states he is in a room
--- NOTE | 2021-08-07 15:04 | PC.NURSE ---
[facility] speaking with Dr. Rodríguez
--- NOTE | 2021-08-07 15:18 | HMH.PHACONS ---
- Pharmacy Consult Date: 08/07/21 Time: 15:18 Referring provider: DR. SOLIZ Reason for Consult:: VANCOMYCIN DOSING Allergies and ADEs:: Allergies Allergy/AdvReac Type Severity Reaction Status Date / Time No Known Drug Allergies Allergy Verified 08/07/21 10:58 Home Medications:: Home Medications Medication Instructions Recorded Confirmed Type Finasteride [Proscar] 5 mg PO DAILY 05/27/21 08/07/21 History Metformin HCl 500 mg PO BID 05/27/21 08/07/21 History Rivaroxaban [Xarelto] 20 mg PO DAILY 05/27/21 08/07/21 History Tamsulosin HCl 0.4 mg PO DAILY 05/27/21 08/07/21 History Levothyroxine Sodium [Synthroid 25 mcg PO DAILY 08/02/21 08/07/21 History 25mcg (0.025mg) tablet] Tizanidine HCl [Zanaflex 4mg 4 mg PO TID PRN #12 tab 08/02/21 08/07/21 Rx tab] methylPREDNISolone [Medrol 4mg 4 mg PO DIRECTED #21 tab 08/02/21 08/07/21 Rx tab] Height: 1.75 m Weight: 62.596 kg Laboratory Results:: Laboratory Results - last 24 hr 08/07/21 11:55: WBC 14.0 H, RBC 4.76, Hgb 14.2, Hct 43.9, MCV 92.2, MCH 29.7, MCHC 32.3, RDW 16.8, Plt Count 424, MPV 8.3, Neut % (Auto) 79.8, Lymph % (Auto) 13.3, [place] % (Auto) 4.2, Eos % (Auto) 2.3, Baso % (Auto) 0.4, Neut # (Auto) 11.2 H, Lymph # (Auto) 1.9, [place] # (Auto) 0.6, Eos # (Auto) 0.3, Baso # (Auto) 0.1, ESR 17 08/07/21 11:55: Sodium 137, Potassium 4.1, Chloride 102, Carbon Dioxide 23, Anion Gap 16.1 H, BUN 27 H, Creatinine 1.10, Estimated Creat Clear 57, Estimated GFR 67, Est GFR ( Amer) 81, Glucose 184 H, Calcium 10.3 H, Total Bilirubin 0.6, AST 19, ALT 18, Alkaline Phosphatase 99, C-Reactive Protein 58.1 H, Total Protein 7.3, Albumin 4.4, Globulin 2.9, Albumin/Globulin Ratio 1.5 08/07/21 11:55: Procalcitonin 0.180 08/07/21 11:55: Urine Color Yellow, Urine Appearance Clear, Urine pH 6.0, Ur Specific [place] 1.020, Urine Protein Trace, Urine Glucose (UA) Negative, Urine Ketones Negative, Urine Blood 1+, Urine Nitrate Negative, Urine Bilirubin Negative, Urine Urobilinogen 0.2, Ur Leukocyte Esterase Negative, Urine RBC Occasional, Urine WBC Occasional, Ur Squamous Epith Cells Occasional, Urine Bacteria 1+ 08/07/21 11:55: Lipase 56 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: Reports:: Deep Vein Thrombosis, Diabetes Mellitus Type 2, Kidney Stones Denies:: Cancer, Diabetes Mellitus Type 1, Internal Pacemaker, Lung Disease, MRSA, Seizures Assessment and Plan - Assessment and plan all Dx Assessment and Plan for all problems:: Age: 70 yo Serum creatinine: 1.1 mg/dL Height: 69.0 Inches Weight (kg): 63 Assessment: IBW (kg): 70.70 Dosing wt(kg): 63 Estimated Creatinine clearance (ml/min): 57.3 CRCL method: Cockcroft and Gault using ibw(default). Drug selected: Vancomycin Loading dose (mg): 0 Vd (liters): 53.5 (factor used: 0.85 L/kg) Kareem (hr-1): 0.052 Half life (hrs): 13.33 Recommended dose: 1250 mg Interval: 18 hrs Infusion time (hrs): 2.0 Predicted peak (mcg/mL): 36.5 Predicted trough (mcg/mL): 15.88 Total body weight is being used for vancomycin dosing. Recommendations: Give Vancomycin 1250 mg q 18 hrs with an expected Cpeak of 36.5 mcg/ml and an expected Ctrough of 15.88 mcg/ml. ----Vanco only - ignore for aminoglycosides----- CLvanco= 2.78 L/hr AUC 0-24 /KAYLA Data: KAYLA 0.5 mcg/mL: AUC/KAYLA: 1199.0 KAYLA 1.0 mcg/mL: AUC/KAYLA: 599.5 --------- KAYLA 1.5 mcg/mL: AUC/KAYLA: 399.7 KAYLA 2.0 mcg/mL: AUC/KAYLA: 299.8 Thank you for the consult, will continue to follow.
--- NOTE | 2021-08-07 15:29 | HMH.PHAINT ---
MEDICATION RECONCILIATION COMPLETED ON PATIENT USING EXTERNAL FILL HISTORY FROM PHARMACY. -DANA PAZ, AUDREYD
--- NOTE | 2021-08-07 16:04 | PC.NURSE ---
Talking to [facility] about transfer of patient.
[2021-08-07 16:05] LABS: Coronavirus 19, PCR Not Detected (NotDetected); Influenza A, PCR Not Detected (NotDetected); Influenza B, PCR Not Detected (NotDetected)
--- NOTE | 2021-08-07 16:14 | PC.NURSE ---
[facility] did not accept patient.
--- NOTE | 2021-08-07 16:24 | PC.NURSE ---
Pt being put on List at [facility], they will call back shortly to have ER talk to Hospitalist.
--- NOTE | 2021-08-07 16:26 | PC.NURSE ---
[facility] no beds.
--- NOTE | 2021-08-07 16:52 | PC.NURSE ---
report called to delonte arriaza on second floor.
--- NOTE | 2021-08-07 17:04 | PC.NURSE ---
updated pt on POC at this time, pt states no needs at this time. Pt has visitor at [facility]
[2021-08-07 21:33] LABS: POC Glucose,Bedside 150 (70-110)
--- NOTE | 2021-08-07 23:06 | PC.NURSE ---
Patient was given zofran for nausea/vomiting at 1999. Patient continued vomiting x3, contacted Dr. Diamond, was told to give a one time dose of phenergan 25 mg IV.
--- NOTE | 2021-08-08 00:24 | PC.NURSE ---
Patient tolerating phenergan well, resting with eyes closed at this time.
--- NOTE | 2021-08-08 03:52 | PC.NURSE ---
Patient hasn't had anymore episodes of emesis. Has been resting in bed with eyes closed. [facility] has called two times to check on his status and to remind us that they're still waiting on a bed to open. Patient has complained of back pain 7/10 but has not received more than 1 dose of morphine since coming to the floor. Call light is within reach and working appropriately.
[2021-08-08 05:00] VITALS: BMI 19.8
[2021-08-08 05:35] VITALS: BP 123/77; PULSE 84; RESP 16; TEMP 36.4; O2SAT 97
--- NOTE | 2021-08-08 07:14 | P.CONPHA_ITS ---
[facility] Pharmacy VTE Monitoring - Patient Demographics Admission date: 08/07/21 Report Date: 08/08/21 Time: 07:14 Allergies/Adverse Reactions: Patient Allergies No Known Drug Allergies Allergy (Verified 08/07/21 10:58) Height: 1.75 m Weight: 60.917 kg Patient Problems: Current Active Problems Discitis of thoracic region (Acute) Osteomyelitis of thoracic spine (Acute) - VTE Risk Labs: VTE Related Lab Results Hgb 14.2 g/dL (14.1-18.0) 08/07/21 11:55 Hct 43.9 % (42.0-52.0) 08/07/21 11:55 Plt Count 424 K/mm3 (142-424) 08/07/21 11:55 BUN 27 mg/dl (9-20) H 08/07/21 11:55 Creatinine 1.10 mg/dl (0.66-1.25) 08/07/21 11:55 Estimated Creat Clear 57 mL/min (50-200) 08/07/21 11:55 VTE Score: 1 - Prophylaxis VTE Prophylaxis Ordered?: Yes Types of VTE Prophylaxis: TEDS Knee High, Pharmacological Location of Applied Device: Bilateral Lower Extremeties Pharmacologic Type: Other (XARELTO)
[2021-08-08 08:00] VITALS: BP 134/91; PULSE 87; RESP 16; TEMP 36.5; O2SAT 99
--- NOTE | 2021-08-08 09:45 | HMH.HP ---
*Admission Date: 08/07/21 *Chief complaint: Upper Back Pain *History of present illness: Sent from Dr. Rodríguez's office for back pain. Dr. Rodríguez requests CT scan of abdomen and pelvis and lumbar spine. If no significant findings requiring admission, discharged with a couple of days of pain medication and follow-up in their office. Patient states low back pain on both sides of his upper lumbar spine and CVA areas, lower posterior chest, that began 3 weeks ago, progressively getting worse. Pain increases with movement and deep breath. Not tender to touch. Initially started on the right now on the left. Denies urinary symptoms, fever, vomiting, diarrhea, cough, injury. Seen at the urgent treatment center here x2. States that it a UTI 3 weeks ago that was treated and cleared. No urinary symptoms currently. No history of spine surgery, IV drug abuse, immunocompromise (Per Dr. Ambriz). Thotacic CT findings are consistent with T6-7 discitis/osteomyelitis. [facility] History I have reviewed the patient's past medical history: Yes 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: Reports:: Deep Vein Thrombosis, Diabetes Mellitus Type 2, Kidney Stones Denies:: Cancer, Diabetes Mellitus Type 1, Internal Pacemaker, Lung Disease, MRSA, Seizures *Have you ever received a pneumonia vaccine?: Yes *Have you received a flu vaccine this season?: Yes Other 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: Reports: Cataracts, Thyroid Disease. Denies: Blood Transfusion Reaction Laterality Cases: Bilateral: Tonsillectomy Other Surgeries: Yes: Colonoscopy, Other. No: Pacemaker Amputation: No Fractures: No - *Social History Last grade of school completed: High school graduate Smoking Status: Never smoker Alcohol Intake: never Substance Use Type: denies use *Occupational Status:: retired Housing: house Household Members: spouse *Travel in the last 8 weeks: None Family Hx:: Cancer Review of Systems - Review of Systems Review of systems:: pertinent systems reviewed and negative unless documented below - Constitutional Denies body ache(s), Denies fatigue - Eyes Denies blurry vision, Denies double vision - ENT Denies difficulty swallowing, Denies headache(s) - *Cardiovascular Denies chest pain, Denies chest pain at rest, Denies shortness of breath with activity - *Respiratory Denies chest congestion, Denies shortness of breath - *Gastrointestinal Reports abdominal pain, Reports change in bowel habits - *Musculoskeletal Reports back pain, Denies decreased muscle mass, Denies body aches - Integumentary/Breasts Denies change in skin color, Denies lesions - *Neurologic Denies numbness, Denies weakness - Psychiatric Denies abnormal sleep pattern, Denies behavioral changes - Endocrine Denies cold intolerance, Denies excessive sweating - Hematologic/Lymphatic Denies easy bleeding, Denies easy bruising - Allergic/Immunologic Denies GI upset with certain foods, Denies throat swelling Meds Home Medications Medication Instructions Recorded Confirmed Type Finasteride [Proscar] 5 mg PO DAILY 05/27/21 08/07/21 History Metformin HCl 500 mg PO BIDWMEAL 05/27/21 08/07/21 History Rivaroxaban [Xarelto] 20 mg PO QPMWITHMEAL 05/27/21 08/07/21 History Tamsulosin HCl 0.4 mg PO DAILY 05/27/21 08/07/21 History Levothyroxine Sodium [Synthroid 25 mcg PO DAILY 08/02/21 08/07/21 History 25mcg (0.025mg) tablet] Tizanidine HCl [Zanaflex 4mg 4 mg PO TIDP PRN 08/07/21 08/07/21 History tab] methylPREDNISolone [Medrol 4mg 4 mg PO DIRECTED 08/07/21 08/07/21 History tab] Allergies Allergy/AdvReac Type Severity Reaction Status Date / Time No Known Drug Allergies Allergy Verified 08/07/21 10:58 Exam Vital signs and Labs for Last 24 Hours: Temp Pulse Resp BP Pulse Ox 97.7 F 87 16 134/91 H 99 08/08/21 08:00 08/08/21 08:00 08/08/21 08:00 08/08/21 08:00 08/08/21 08:00 Laboratory Results - last 24 hr 08/07/21 11:55: WBC 14.0 H, RBC 4.76, Hgb 14.2, Hct 43.9,
--- NOTE | 2021-08-08 10:25 | HMH.DCSUM ---
General - General Admission date:: 08/07/21 Discharge date: 08/07/21 HPI HPI: Sent from Dr. Rodríguez's office for back pain. Dr. Rodríguez requests CT scan of abdomen and pelvis and lumbar spine. If no significant findings requiring admission, discharged with a couple of days of pain medication and follow-up in their office. Patient states low back pain on both sides of his upper lumbar spine and CVA areas, lower posterior chest, that began 3 weeks ago, progressively getting worse. Pain increases with movement and deep breath. Not tender to touch. Initially started on the right now on the left. Denies urinary symptoms, fever, vomiting, diarrhea, cough, injury. Seen at the urgent treatment center here x2. States that it a UTI 3 weeks ago that was treated and cleared. No urinary symptoms currently. No history of spine surgery, IV drug abuse, immunocompromise (Per Dr. Ambriz). Thotacic CT findings are consistent with T6-7 discitis/osteomyelitis. Hospital Course Hospital Course: Patient presents to the emergency department after being sent from physician's office for reports of abdominal pain, nausea, and lower back pain for 3 weeks and increasing to intolerable. In the emergency department thoracic CT revealed T6-7 discitis and he was admitted to the hospital. was on diversion with no available beds and I am unable to accept transfer, [facility] has accepted patient and awaiting bed availability and he is placed high on the priority list. During his stay he has been on vancomycin and cefepime IV 70-year-old male patient sitting up in bed resting quietly he denies any respiratory distress, chest pain, or abdominal pain during the night. Back pain has been managed with morphine IV and has reduced pain to a tolerable level. Discussed transfer to higher level of care and patient verbalizes understanding. Osteomyelitis of thoracic spine, Discitis of thoracic region T6-7 discitis/osteomyelitis, has received vancomycin and cefepime IV Awaiting transfer to [facility] in [place] Pain has been controlled with morphine Abdominal pain Nausea has been controlled with Phenergan and he has had no further emesis since during the night Leukocytosis Currently on vancomycin and cefepime IV PLAN: 1. We will transfer to [facility] Objective Vital signs: Temp Pulse Resp BP Pulse Ox 97.7 F 87 16 134/91 H 99 08/08/21 08:00 08/08/21 08:00 08/08/21 08:00 08/08/21 08:00 08/08/21 08:00 no acute distress, chronically ill appearing - *Routine HEENT Exam Head: Present: normocephalic Eye: Present: EOMI ENT: Present: mucous membranes moist - *Routine Neck Exam Present: trachea midline. Absent: tracheal deviation - *Routine Respiratory Exam Present: CTA bilaterally. Absent: accessory muscle use - *Routine Cardiovascular Exam Present: RRR - *Routine Abdominal Exam Present: soft, normoactive bowel sounds. Absent: tenderness, firm - *Routine Extremities Exam Present: full ROM, pulses intact. Absent: cyanosis, clubbing, edema - *Routine Skin Exam Present: intact, dry. Absent: cyanosis, erythema - *Routine Neurological Exam Present: alert, oriented X3. Absent: motor deficit - Routine Psychiatric Exam Present: normal affect, normal thought process. Absent: visual hallucinations Results Labs on day of discharge: Labs from last 24 hours 08/07/21 08/07/21 08/07/21 21:23 16:02 11:55 WBC RBC Hgb Hct MCV MCH MCHC RDW Plt Count MPV Neut % (Auto) Lymph % (Auto) [place] % (Auto) Eos % (Auto) Baso % (Auto) Neut # (Auto) Lymph # (Auto) [place] # (Auto) Eos # (Auto) Baso # (Auto) ESR Sodium Potassium Chloride Carbon Dioxide Anion Gap BUN Creatinine Estimated Creat Clear Estimated GFR Est GFR ( Amer) Glucose POC Glucose 150 H Calcium To
[2021-08-08 12:18] LABS: POC Glucose,Bedside 176 (70-110)
--- NOTE | 2021-08-08 15:05 | PC.NURSE ---
PT IS RESTING IN BED. MEDICATED PER MAR FOR DISCOMFORT. PT STATES THE PAIN IS WORSE WITH MOVEMENT. AMBULATES TO THE BATHROOM WITH CANE. LUNG SOUNDS CLEAR. ABDOMEN SLIGHTLY DISTENDED WITH ACTIVE BOWEL SOUNDS. PT STATES HIS LAST BOWEL MOVEMENT WAS 3 DAYS AGO. EATING AND DRINKING WELL. CALLED THIS MORNING FOR AN UPDATE AND STATED THEY STILL DO NOT HAVE A BED AT THIS TIME BUT WILL CONTINUE TO KEEP US UPDATED. WILL CONTINUE TO MONITOR.
[2021-08-08 15:50] VITALS: BP 120/88; PULSE 82; RESP 16; TEMP 36.9; O2SAT 100
[2021-08-08 16:13] LABS: POC Glucose,Bedside 146 (70-110)
[2021-08-08 20:00] VITALS: O2SAT 97
[2021-08-08 20:15] VITALS: BP 115/82; PULSE 67; RESP 16; TEMP 36.5; O2SAT 97
[2021-08-08 20:20] LABS: POC Glucose,Bedside 169 (70-110)
--- NOTE | 2021-08-09 04:08 | PC.NURSE ---
pt has rested intermittently this shift, has not complained of pain this shift, remains on room air with O2 sats 97-100%, using urinal independently, does have pain when repositioning, but has denied any PRN pain medications
[2021-08-09 04:37] VITALS: BP 125/82; PULSE 77; RESP 16; TEMP 36.6; O2SAT 100
[2021-08-09 04:45] LABS: Basophils # 0.1 K/mm3 (0-0.2); Basophils % 0.6 % (0.1-2.0); Eosinophils # 0.3 K/mm3 (0.0-0.4); Eosinophils % 3.2 % (0.1-12.0); Hematocrit 36.4 % (42.0-52.0); Hemoglobin 11.8 g/dL (14.1-18.0); Lymphocytes # 1.8 K/mm3 (0.7-4.5); Lymphocytes % 17.2 % (10-50); Mean Corpuscular HGB Conc 32.5 g/dL (31.8-35.4); Mean Corpuscular Hemoglobin 29.8 pg (27.0-31.2); Mean Corpuscular Volume 91.6 fl (80-94); Mean Platelet Volume 8.4 fl (7.4-10.4); Monocytes # 0.6 K/mm3 (0.1-1.0); Monocytes % 5.9 % (1.7-9.3); Neutrophils # 7.7 K/mm3 (1.8-7.8); Neutrophils % 73.1 % (37.0-80.0); Platelet Count 365 K/mm3 (142-424); Red Blood Count 3.97 M/mm3 (4.60-6.20); Red Cell Distribution Width 16.7 % (11.5-17.5); White Blood Count 10.5 K/mm3 (4.8-10.8)
[2021-08-09 04:46] LABS: Chloride 104 mmol/L (98-107); Potassium 4.1 mmoL/L (3.5-5.1); Sodium 137 mmol/L (136-145)
[2021-08-09 04:49] LABS: Blood Urea Nitrogen 24 mg/dl (9-20); Creatinine Clearance Estimated 55 mL/min (50-200); Estimated Glomerular Filt Rate 67 ml/min (>60); GFR (African American) 81 ML/MIN (>60)
[2021-08-09 04:50] LABS: Anion Gap 9.1 mEq/L (5-15); Calcium 9.8 mg/dl (8.4-10.2); Carbon Dioxide 28 mmol/L (22.0-30.0); Glucose 157 mg/dl (74-100)
[2021-08-09 05:00] VITALS: BMI 19.9
[2021-08-09 05:41] LABS: Vancomycin,Trough 5.6 ug/mL (5.0-10.0)
[2021-08-09 06:09] LABS: POC Glucose,Bedside 120 (70-110)
[2021-08-09 07:32] VITALS: BP 123/73; PULSE 99; RESP 18; TEMP 36.8; O2SAT 97
--- NOTE | 2021-08-09 07:52 | PC.NURSE ---
PAIN YELLED OUT TRYING TO REPOSITION HIMSELF IN BED. THIS RN ENTERED ROOM TO ASSIST. PT WAS ASKED IF HE WANTED PAIN MEDICATION BUT REFUSED STATING THAT THE MORPHINE DOES NOT HELP. PT WAS ASSISTED IN REPOSITIONING AND BREAKFAST TRY WAS PREPARED.
[2021-08-09 08:00] VITALS: O2SAT 97
--- NOTE | 2021-08-09 09:22 | PC.NURSE ---
SPOKE WITH GRACIE AT [facility]. STILL NO BED AVAILABLE.
[2021-08-09 09:41] LABS: Vancomycin,Peak 31.9 ug/ml (11-39)
[2021-08-09 10:02] VITALS: BMI 19.9
--- NOTE | 2021-08-09 12:30 | P.PN_ITS ---
Internal Medicine - PN: Subj *Date: 08/09/21 *Time: 08:45 Interval history: pt reports increase in pain Exam Vital signs and Labs for Last 24 Hours: Temp Pulse Resp BP Pulse Ox 98.2 F 99 H 18 123/73 97 08/09/21 07:32 08/09/21 07:32 08/09/21 07:32 08/09/21 07:32 08/09/21 07:32 Laboratory Results - last 24 hr 08/08/21 15:44: POC Glucose 146 H 08/08/21 20:09: POC Glucose 169 H 08/09/21 04:30: Sodium 137, Potassium 4.1, Chloride 104, Carbon Dioxide 28, Anion Gap 9.1, BUN 24 H, Creatinine 1.10, Estimated Creat Clear 55, Estimated GFR 67, Est GFR ( Amer) 81, Glucose 157 H, Calcium 9.8 08/09/21 04:30: Vancomycin Trough 5.6 08/09/21 04:30: WBC 10.5, RBC 3.97 L, Hgb 11.8 L, Hct 36.4 L, MCV 91.6, MCH 29.8, MCHC 32.5, RDW 16.7, Plt Count 365, MPV 8.4, Neut % (Auto) 73.1, Lymph % (Auto) 17.2, [place] % (Auto) 5.9, Eos % (Auto) 3.2, Baso % (Auto) 0.6, Neut # (Auto) 7.7, Lymph # (Auto) 1.8, [place] # (Auto) 0.6, Eos # (Auto) 0.3, Baso # (Auto) 0.1 08/09/21 06:01: POC Glucose 120 H 08/09/21 08:43: Vancomycin Peak 31.9 I & O for Last 24 hours: Intake & Output 08/07/21 08/08/21 08/09/21 08/10/21 11:59 11:59 11:59 11:59 Intake Total 360 / 360 700 / 700 Output Total 0 / 0 625 / 625 Balance 360 / 360 75 / 75 Weight 138 lb 134 lb 4.8 oz 134 lb 7.712 oz - Constitutional no acute distress, thin - *Routine HEENT Exam Head: Present: normocephalic Eye: Present: PERRL ENT: Present: mucous membranes moist - *Routine Neck Exam Present: supple. Absent: lymphadenopathy - *Routine Respiratory Exam Present: CTA bilaterally - *Routine Cardiovascular Exam Present: RRR - *Routine Abdominal Exam Present: soft, normoactive bowel sounds. Absent: tenderness - *Routine Extremities Exam Absent: cyanosis, clubbing, edema - *Routine Skin Exam Present: warm. Absent: rash - *Routine Neurological Exam Present: alert, oriented X3 Assessment and Plan (1) Discitis of thoracic region Status: Acute Category: Medical Code(s): M46.44 - Discitis, unspecified, thoracic region (2) Osteomyelitis of thoracic spine Status: Acute Category: Medical Code(s): M46.24 - Osteomyelitis of vertebra, thoracic region (3) Abdominal pain Status: Acute Qualifiers: Abdominal location: generalized Qualified Code(s): R10.84 - Generalized abdominal pain Category: Medical Code(s): R10.9 - Unspecified abdominal pain (4) Leukocytosis Status: Acute Category: Medical Code(s): D72.829 - Elevated white blood cell count, unspecified - Assessment and plan all Dx Assessment and Plan for all problems:: rounded with dr mancera all orders per dr mancera change pain meds add nausea meds check on transfer to [facility]
[2021-08-09 14:59] VITALS: BP 114/76; PULSE 74; RESP 18; TEMP 36.4; O2SAT 97
[2021-08-09 20:20] LABS: POC Glucose,Bedside 171 (70-110)
== END 2021-08-09 15:55 | disposition short-term general hospital (02) | DRG 552 ==
LOC: ER 16:35 → 2ND 16:44
PROVIDERS: Nurse Practitioner Family; Admitting Provider Emergency Medicine; Emergency Provider Emergency Medicine; PCP Emergency Medicine; Visit Provider Emergency Medicine
DX: M46.44 Discitis, unspecified, thoracic region (principal); M86.9 Osteomyelitis, unspecified; M46.24 Osteomyelitis of vertebra, thoracic region; E11.69 Type 2 diabetes mellitus with other specified complication; Z87.891 Personal history of nicotine dependence; Z86.718 Personal history of other venous thrombosis and embolism; E11.40 Type 2 diabetes mellitus with diabetic neuropathy, unspecified; Z79.84 Long term (current) use of oral hypoglycemic drugs; Z20.822 Contact with and (suspected) exposure to COVID-19
CPT/HCPCS: 36415; 71260; 72129; 72132; 74177; 80048; 80053; 80202; 81001; 82962; 83690; 84145; 85025; 85651; 86140; 96372; 99285; C9803; J2405; Q9967; U0003; U0005

== ENCOUNTER → 2021-08-27 11:17 | Outpatient (CLI) | payer MEDICARE, MEDICAID, SELFPAY ==
[2021-08-29 12:12] LABS: Alanine Aminotransferase 22 U/L (12-78); Albumin Level 3.5 g/dl (3.5-5.0); Albumin/Globulin Ratio 1.3 (1.1-1.8); Alkaline Phosphatase 99 U/L (38-126); Anion Gap 13.9 mEq/L (5-15); Aspartate Amino Transferase 38 U/L (17-59); Blood Urea Nitrogen 15 mg/dl (9-20); Calcium 9.2 mg/dl (8.4-10.2); Carbon Dioxide 24 mmol/L (22.0-30.0); Chloride 105 mmol/L (98-107); Estimated Glomerular Filt Rate 84 ml/min (>60); GFR (African American) 102 ML/MIN (>60); Globulin 2.8 g/dL (1.3-3.2); Glucose 137 mg/dl (74-100); Potassium 3.9 mmoL/L (3.5-5.1); Sodium 139 mmol/L (136-145); Total Protein,Serum 6.3 g/dl (6.3-8.2)
[2021-08-29 12:16] LABS: Bilirubin,Total < 0.1 mg/dl (0.2-1.3)
[2021-08-29 12:17] LABS: C-Reactive Protein 17.1 mg/L (0-4)
== END ==
PROVIDERS: Visit Provider Emergency Medicine
DX: M86.18 Other acute osteomyelitis, other site (principal); M46.44 Discitis, unspecified, thoracic region; G06.1 Intraspinal abscess and granuloma
CPT/HCPCS: 80053; 86140

== ENCOUNTER → 2021-09-24 16:28 | Outpatient (CLI) | payer MEDICARE, MEDICAID, SELFPAY ==
[2021-09-24 17:06] LABS: Chloride 109 mmol/L (98-107); Potassium 3.3 mmoL/L (3.5-5.1); Sodium 139 mmol/L (136-145)
[2021-09-24 17:08] LABS: Alanine Aminotransferase 19 U/L (12-78); Aspartate Amino Transferase 24 U/L (17-59); Blood Urea Nitrogen 13 mg/dl (9-20); Estimated Glomerular Filt Rate 84 ml/min (>60); GFR (African American) 101 ML/MIN (>60)
[2021-09-24 17:09] LABS: Albumin Level 3.5 g/dl (3.5-5.0); Albumin/Globulin Ratio 1.5 (1.1-1.8); Alkaline Phosphatase 83 U/L (38-126); Anion Gap 11.3 mEq/L (5-15); Calcium 9.1 mg/dl (8.4-10.2); Carbon Dioxide 22 mmol/L (22.0-30.0); Globulin 2.4 g/dL (1.3-3.2); Glucose 199 mg/dl (74-100); Total Protein,Serum 5.9 g/dl (6.3-8.2)
[2021-09-24 17:10] LABS: Bilirubin,Total 0.1 mg/dl (0.2-1.3)
[2021-09-24 17:15] LABS: C-Reactive Protein 4.8 mg/L (0-4)
[2021-09-24 17:18] LABS: Basophils # 0.1 K/mm3 (0-0.2); Basophils % 1.1 % (0.1-2.0); Eosinophils # 0.5 K/mm3 (0.0-0.4); Eosinophils % 5.9 % (0.1-12.0); Hematocrit 36.6 % (42.0-52.0); Hemoglobin 11.9 g/dL (14.1-18.0); Lymphocytes # 1.8 K/mm3 (0.7-4.5); Lymphocytes % 19.8 % (10-50); Mean Corpuscular HGB Conc 32.5 g/dL (31.8-35.4); Mean Corpuscular Hemoglobin 30.2 pg (27.0-31.2); Mean Corpuscular Volume 92.9 fl (80-94); Mean Platelet Volume 9.3 fl (7.4-10.4); Monocytes # 0.5 K/mm3 (0.1-1.0); Monocytes % 5.7 % (1.7-9.3); Neutrophils # 6.1 K/mm3 (1.8-7.8); Neutrophils % 67.4 % (37.0-80.0); Platelet Count 265 K/mm3 (142-424); Red Blood Count 3.94 M/mm3 (4.60-6.20); Red Cell Distribution Width 18.1 % (11.5-17.5)
[2021-09-24 18:37] LABS: Erythrocyte Sedimentation Rate 14 mm/hr (0-20)
== END ==
PROVIDERS: PCP Emergency Medicine; Visit Provider Emergency Medicine
DX: M46.24 Osteomyelitis of vertebra, thoracic region (principal)
CPT/HCPCS: 80053; 85025; 85651; 86140

== ENCOUNTER → 2021-10-01 11:14 | Outpatient (CLI) | payer MEDICARE, MEDICAID, SELFPAY ==
[2021-10-01 13:23] LABS: Chloride 109 mmol/L (98-107); Potassium 3.9 mmoL/L (3.5-5.1); Sodium 140 mmol/L (136-145)
[2021-10-01 13:26] LABS: Anion Gap 7.9 mEq/L (5-15); Blood Urea Nitrogen 15 mg/dl (9-20); Calcium 9.4 mg/dl (8.4-10.2); Carbon Dioxide 27 mmol/L (22.0-30.0); Estimated Glomerular Filt Rate 66 ml/min (>60); GFR (African American) 80 ML/MIN (>60); Glucose 130 mg/dl (74-100)
[2021-10-01 13:56] LABS: Hemoglobin A1C 6.4 % (4.0-6.0)
== END ==
PROVIDERS: PCP Emergency Medicine; Visit Provider Emergency Medicine
DX: E87.6 Hypokalemia (principal); R73.09 Other abnormal glucose
CPT/HCPCS: 36415; 80048; 83036

== ENCOUNTER 2021-10-21 14:28 | Emergency (ER) | payer MEDICARE, MEDICAID, SELFPAY ==
[2021-10-21 14:55] VITALS: BP 122/84; PULSE 74; RESP 17; TEMP 37; O2SAT 99; BMI 21.1
--- NOTE | 2021-10-21 15:16 | HMH.EDUTC ---
[facility] Disposition Clinical Impression: Exposure to COVID-19 virus Disposition: Home, Self-Care Condition on Discharge: Good Instructions: DI for COVID-19 (Suspected or Confirmed ), Preventing the Spread of Coronavirus Discharge Instructions Additional Instructions: *Monitor Temp, Over the counter Motrin or Tylenol as directed/as needed Tylenol every 4 hours and Motrin every 6 hours (as long as your family doctor has told you that you can take it) for fever or pain. and straight to ER if unable to lower temp less than 101.0 after medication given *Warm salt water gargles may help to soothe the throat *Throat Lozenges *Warm fluids like tea with honey may help to soothe the throat *Sleep elevated *Humidifier/Vaporizer Follow up IMMEDIATELY for new or worsening symptoms or no Noticeable improvement over the next 48-72 hours. 911 for difficulty breathing or swallowing You were tested for today for COVID19 your test result should be back in the next 24-48 hours, you may Check your results on the [facility] My Health Portal Make sure to take your Vitamins Vit. C Vit D and Zinc if you can take them Referrals: Guzman Rodríguez MD [Primary Care Provider] - As needed Forms: Work/School Release Medical Decision Making - Cuco Inquiry Pt receiving controlled substance: No Cuco was queried for this patient: No Vital Signs: 10/21/21 14:55 Temperature 98.6 F Temperature Source Oral Pulse Rate [Right Brachial] 74 Respiratory Rate 17 Blood Pressure [Right Arm] 122/84 Blood Pressure Mean [Right Arm] 96 Blood Pressure Source [Right Arm] Automatic Cuff Blood Pressure Position [Right Arm] Sitting 02 Sat by Pulse Oximetry 99 Oxygen Delivery Method Room Air Orders (Tests/Meds): ORDERS Category Date Time Status Covid-19 Nasal PCR ([facility]) Routine Lab 10/21/21 14:[address] [facility] HPI - General Stated complaint: covid test Time Seen by Provider: 10/21/21 15:16 Mode of Arrival: Ambulatory Source of Information: Patient Limitations: No Limitations Description of Symptoms (Recalled from Triage Doc. by RN): PATIENT C/O COUGH X 2 DAYS. RECENTLY EXPOSED TO COVID HEENT Symptoms (Recalled from RN notes): No Resp Symptoms (Recalled from RN notes): Yes Skin Symptoms (Recalled from RN notes): No MS Symptoms (Recalled from RN notes): No Functional Status (Recalled from RN notes): WNL - History of Present Illness Provider Complaint: Patient states that his recently tested positive for COVID and he has been having a cough and headache States that he wanted to get tested for COVID sine he has not been feeling that well - Related Data Home Medications Medication Instructions Recorded Confirmed Finasteride [Proscar] 5 mg PO DAILY 05/27/21 08/07/21 Rivaroxaban [Xarelto 20mg Tablet*] 20 mg PO QPMWITHMEAL 05/27/21 08/07/21 Tamsulosin HCl 0.4 mg PO DAILY 05/27/21 08/07/21 Levothyroxine Sodium [Synthroid 25 mcg PO DAILY 08/02/21 08/07/21 25mcg (0.025mg) tablet] Tizanidine HCl [Zanaflex 4mg 4 mg PO TIDP PRN 08/07/21 08/07/21 tab] methylPREDNISolone [Medrol 4mg 4 mg PO DIRECTED 08/07/21 08/07/21 tab] Previous Rx's Medication Instructions Recorded metformin 500 mg tablet See Rx Instructions .ROUTE 09/11/21 .COMPLEX #60 tablet Allergies Allergy/AdvReac Type Severity Reaction Status Date / Time No Known Drug Allergies Allergy Verified 08/07/21 10:58 - Worker's Comp Is this a Worker's Comp case?: No [facility] History - Hepatitis A Screen Attestation statement:: This patient has been screened for Hepatitis A risk factors. I have reviewed the patient's past medical history: Yes 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: Reports:: Deep Vein Thrombosis, Diabetes Mellitus Type 2, Kidney Stones Denies:: Cancer, Diabetes Mellitus Type 1, Internal Pacemaker, Lung Disease, MRSA, Seizures Other 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: Reports: Cataracts, Thyroid Disease. Denies: Blood Transfusion Reaction Comment: enlarged prostate,neuropath
[2021-10-21 15:22] VITALS: BP 122/84; PULSE 74; RESP 17; TEMP 37; O2SAT 99
== END 2021-10-21 15:27 | disposition home or self-care (01) ==
PROVIDERS: Emergency Provider Nurse Practitioner; PCP Emergency Medicine
DX: U07.1 COVID-19 (principal)
CPT/HCPCS: 99212; C9803; G0463; U0003; U0005

== ENCOUNTER 2022-01-10 11:54 | Emergency (ER) | payer MEDICARE, MEDICAID, SELFPAY ==
--- NOTE | 2022-01-10 12:01 | EXP.UTC ---
Discharge Plan Disposition Patient Disposition: Home, Self-Care Condition: Good Prescriptions Prescriptions: New ciprofloxacin HCl [Cipro] 500 mg tablet 500 mg PO BID 10 Days Qty: 20 0RF phenazopyridine 200 mg Tablet 200 mg PO TID Qty: 6 0RF No Action levothyroxine [Euthyrox] 25 mcg tablet See Rx Instructions .ROUTE .COMPLEX Qty: 90 0RF Dose Instruction: Take 1 tablet by mouth once daily Rx Instructions: Take 1 tablet by mouth once daily Xarelto 20 mg tablet See Rx Instructions .ROUTE .COMPLEX Qty: 90 3RF Dose Instruction: TAKE 1 TABLET BY MOUTH ONCE DAILY WITH EVENING MEAL Rx Instructions: TAKE 1 TABLET BY MOUTH ONCE DAILY WITH EVENING MEAL metformin 500 mg tablet See Rx Instructions .ROUTE .COMPLEX Qty: 60 0RF Dose Instruction: Take 1 tablet by mouth twice daily Rx Instructions: Take 1 tablet by mouth twice daily tamsulosin 0.4 MG capsule 0.4 mg PO DAILY finasteride 5 MG tablet 5 mg PO DAILY tizanidine 4 MG tablet 4 mg PO TIDP PRN (Reason: Muscle Spasm) methylprednisolone 4 MG tablet 4 mg PO DIRECTED Referrals Follow up/Referrals: Guzman Rodríguez MD [Primary Care Provider] - See instructions Activity Restrictions/Add. Instructions Additional Instructions/Restrictions: Drink plenty of fluids. Take tylenol or ibuprofen for pain or fever. Take the medications as directed. Follow up with your regular doctor. GO TO THE ER FOR ANY WORSENING SYMPTOMS The pyridium will make your urine turn orange, this is an expected side effect. It will stain your clothes if it comes into contact with them. We will culture the urine. That will tell what bacteria is causing your infection and which antibiotics will treat it best. Sometimes the first antibiotic we prescribe turns out to not work against different bacteria. So, make sure you follow up within 3 days if you are not getting better. Clinical Impressions Clinical Impression: UTI (urinary tract infection) Instructions Patient Instructions: Urinary Tract Infection, Urine Culture, DI for Urinary Tract Infection (UTI), Phenazopyridine Discharge ED Provider: Robert Cifuentes [facility] [place] HPI General Stated complaint: Frequent urination w/ little output Time Seen by Provider: 01/10/22 12:12 History of Present Illness Provider Complaint: He c/o dysuria, urinary frequency, and low back discomfort for the past 5 days. He has had similar symptoms with a UTI in the past. Related Data Home Medications Medication Instructions Recorded Confirmed finasteride 5 mg tablet 5 mg PO DAILY PROSTATE 05/27/21 08/07/21 tamsulosin 0.4 mg capsule 0.4 mg PO DAILY PROSTATE 05/27/21 08/07/21 methylprednisolone 4 mg tablet 4 mg PO DIRECTED STEROID 08/07/21 08/07/21 tizanidine 4 mg tablet 4 mg PO TIDP PRN Muscle Spasm 08/07/21 08/07/21 Previous Rx's Medication Instructions Recorded levothyroxine 25 mcg tablet See Rx Instructions .Route 11/13/21 (Euthyrox) .COMPLEX #90 tabs rivaroxaban 20 mg tablet (Xarelto) See Rx Instructions .Route 11/26/21 .COMPLEX #90 tabs metformin 500 mg tablet See Rx Instructions .Route 01/02/22 .COMPLEX #60 tabs ciprofloxacin HCl 500 mg tablet 500 mg PO BID 10 days #20 tabs 01/10/22 (Cipro) phenazopyridine 200 mg tablet 200 mg PO TID #6 tabs 01/10/22 Allergies Allergy/AdvReac Type Severity Reaction Status Date / Time No Known Drug Allergies Allergy Verified 01/10/22 12:14 PFSH PFS Social History Smoking Status: Never smoker second hand exposure: No alcohol intake: never substance use type: denies use current occupational status: other Travel in the last 8 weeks: None household members: spouse housing: house current occupational exposures/hazards: No caffeine: Yes ROS Obtained: Yes All systems reviewed & no additional complaints except as docume
[2022-01-10 12:12] VITALS: BP 109/78; PULSE 103; RESP 16; TEMP 37.1; O2SAT 96; BMI 20.3
[2022-01-10 12:20] LABS: Apearance,Urine Cloudy (Clear); Bilirubin,Urine Negative (Negative); Blood, Urine 3+ (Negative); Color,Urine Yellow (Yellow); Glucose,Urine (UA) Negative (Negative); Ketones,Urine Negative (Negative); Protein,Urine 1+ (Negative); Specific Gravity, Urine 1.025 (1.005-1.030); UTC Leukocyte Esterase,Urine 1+ (Negative); Urobilinogen,Urine 0.2 EU/dl (0.2)
[2022-01-10 12:21] LABS: UTC Nitrate,Urine Negative (Negative)
[2022-01-10 12:49] VITALS: BP 109/78; PULSE 103; RESP 16; TEMP 37.1
== END 2022-01-10 12:52 | disposition home or self-care (01) ==
PROVIDERS: Emergency Provider Nurse Practitioner Family; PCP Emergency Medicine
DX: N39.0 Urinary tract infection, site not specified (principal)
CPT/HCPCS: 81003; 87086; 87088; 87186; 99212; G0463

== ENCOUNTER → 2022-03-07 13:28 | Outpatient (CLI) | payer MEDICARE, MEDICAID, SELFPAY ==
--- NOTE | 2022-03-07 13:32 | CA_ITS ---
FINAL REPORT TECHNIQUE: Grayscale and color Doppler ultrasound images with graded compression of the deep venous system were obtained from the groin to the calf veins bilaterally. CLINICAL HISTORY: Hx of DVT in RLE 02/2021. Patient is currently taking 81 mg ASA daily as well as Xarelto for treatment of DVT's. He is wishing to stop the thinners. No new symptoms in either leg at this time. DM. FINDINGS: The deep venous system is normal. There is no evidence of DVT. Flow and compressibility are normal. IMPRESSION: No evidence of left or right lower extremity DVT. Reviewed, Interpreted and Dictated by Mo Galindo MD Transcribed by Venkatesh Pacheco Authenticated and [facility]
== END ==
PROVIDERS: PCP Emergency Medicine; Visit Provider Emergency Medicine
DX: Z86.718 Personal history of other venous thrombosis and embolism (principal)
CPT/HCPCS: 93970

== ENCOUNTER 2022-03-18 12:30 | Emergency (ER) | payer MEDICARE, MEDICAID, SELFPAY ==
[2022-03-18 12:56] VITALS: BP 126/83; PULSE 63; RESP 19; TEMP 36.4; O2SAT 96; BMI 19.9
--- NOTE | 2022-03-18 13:16 | EXP.UTC ---
Discharge Plan Disposition Patient Disposition: Home, Self-Care Condition: Good Prescriptions Prescriptions: No Action Xarelto 20 mg tablet See Rx Instructions .ROUTE .COMPLEX Qty: 90 3RF Dose Instruction: TAKE 1 TABLET BY MOUTH ONCE DAILY WITH EVENING MEAL Rx Instructions: TAKE 1 TABLET BY MOUTH ONCE DAILY WITH EVENING MEAL levothyroxine 25 mcg tablet See Rx Instructions .ROUTE .COMPLEX Qty: 90 0RF Dose Instruction: Take 1 tablet by mouth once daily Rx Instructions: Take 1 tablet by mouth once daily metformin 500 mg tablet See Rx Instructions .ROUTE .COMPLEX Qty: 60 0RF Dose Instruction: Take 1 tablet by mouth twice daily Rx Instructions: Take 1 tablet by mouth twice daily tamsulosin 0.4 MG capsule 0.4 mg PO DAILY finasteride 5 MG tablet 5 mg PO DAILY tizanidine 4 MG tablet 4 mg PO TIDP PRN (Reason: Muscle Spasm) methylprednisolone 4 MG tablet 4 mg PO DIRECTED ciprofloxacin HCl [Cipro] 500 mg tablet 500 mg PO BID 10 Days Qty: 20 0RF phenazopyridine 200 mg Tablet 200 mg PO TID Qty: 6 0RF Referrals Follow up/Referrals: Guzman Rodríguez MD [Primary Care Provider] - See instructions Activity Restrictions/Add. Instructions Additional Instructions/Restrictions: increase fluids follow up with pcp this week if symptoms worsen or more develop return or be seen in ed Clinical Impressions Clinical Impression: Hematuria Instructions Patient Instructions: Blood in Urine Discharge ED Provider: Sohail ([facility])[place] [facility] [place] General Stated complaint: dark urine Mode of Arrival: Ambulatory Source of Information: Patient Limitations: No Limitations Time Seen by Provider: 03/18/22 13:17 Description of Symptoms (Recalled from Triage Doc. by RN): pt comes in with c/o dark brown urine. symptoms ongoing for 1 week HEENT Symptoms (Recalled from RN notes): No Resp Symptoms (Recalled from RN notes): No Skin Symptoms (Recalled from RN notes): No MS Symptoms (Recalled from RN notes): No Functional Status (Recalled from RN notes): n/a History of Present Illness Provider Complaint: 71 yr old male presents for c/o dark brown urine. symptoms ongoing for 1 week . pt states no other symptoms Related Data Home Medications Medication Instructions Recorded Confirmed finasteride 5 mg tablet 5 mg PO DAILY PROSTATE 05/27/21 08/07/21 tamsulosin 0.4 mg capsule 0.4 mg PO DAILY PROSTATE 05/27/21 08/07/21 methylprednisolone 4 mg tablet 4 mg PO DIRECTED STEROID 08/07/21 08/07/21 tizanidine 4 mg tablet 4 mg PO TIDP PRN Muscle Spasm 08/07/21 08/07/21 Previous Rx's Medication Instructions Recorded rivaroxaban 20 mg tablet (Xarelto) See Rx Instructions .Route 11/26/21 .COMPLEX #90 tabs ciprofloxacin HCl 500 mg tablet 500 mg PO BID 10 days #20 tabs 01/10/22 (Cipro) phenazopyridine 200 mg tablet 200 mg PO TID #6 tabs 01/10/22 levothyroxine 25 mcg tablet See Rx Instructions .Route 02/05/22 .COMPLEX #90 tabs metformin 500 mg tablet See Rx Instructions .Route 02/05/22 .COMPLEX #60 tabs Allergies Allergy/AdvReac Type Severity Reaction Status Date / Time No Known Drug Allergies Allergy Verified 01/10/22 12:14 Worker's Comp Is this a Worker's Comp case?: No [facility] Disclaimer: The information contained in this section may have been updated after the patient was seen, as this information can be updated by other users. 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
[2022-03-18 13:35] VITALS: BP 126/83; PULSE 63; RESP 19; TEMP 36.4
[2022-03-18 13:50] LABS: Chloride 107 mmol/L (98-107); Sodium 139 mmol/L (136-145)
[2022-03-18 13:51] LABS: MANUAL DIFFERENTIAL MANUAL DIFFERENTIAL (MANUAL DIFF)
[2022-03-18 13:51] LABS: Potassium 4.2 mmoL/L (3.5-5.1)
[2022-03-18 13:53] LABS: Alanine Aminotransferase 19 U/L (12-78); Albumin Level 4.3 g/dl (3.5-5.0); Albumin/Globulin Ratio 1.6 (1.1-1.8); Alkaline Phosphatase 78 U/L (38-126); Anion Gap 11.2 mEq/L (5-15); Aspartate Amino Transferase 25 U/L (17-59); Bilirubin,Total 0.3 mg/dl (0.2-1.3); Blood Urea Nitrogen 25 mg/dl (9-20); Calcium 9.6 mg/dl (8.4-10.2); Carbon Dioxide 25 mmol/L (22.0-30.0); Creatinine Clearance Estimated 40 mL/min (50-200); Estimated Glomerular Filt Rate 46 ml/min (>60); GFR (African American) 56 ML/MIN (>60); Globulin 2.7 g/dL (1.3-3.2); Glucose 121 mg/dl (74-100)
[2022-03-18 14:09] LABS: Basophils # 0.1 K/mm3 (0-0.2); Eosinophils # 0.7 K/mm3 (0.0-0.4); Eosinophils % 7.4 % (0.1-12.0); Hematocrit 45.8 % (42.0-52.0); Hemoglobin 14.9 g/dL (14.1-18.0); Lymphocytes # 2.1 K/mm3 (0.7-4.5); Lymphocytes % 22.3 % (10-50); Mean Corpuscular HGB Conc 32.6 g/dL (31.8-35.4); Mean Corpuscular Hemoglobin 31.6 pg (27.0-31.2); Mean Corpuscular Volume 96.8 fl (80-94); Mean Platelet Volume 9.3 fl (7.4-10.4); Monocytes # 0.5 K/mm3 (0.1-1.0); Monocytes % 5.8 % (1.7-9.3); Neutrophils # 5.9 K/mm3 (1.8-7.8); Neutrophils % 63.5 % (37.0-80.0); Platelet Count 208 K/mm3 (142-424); Red Blood Count 4.73 M/mm3 (4.60-6.20); Red Cell Distribution Width 13.6 % (11.5-17.5); White Blood Count 9.3 K/mm3 (4.8-10.8)
[2022-03-18 14:11] LABS: Eosinophils % 6 % (0-3); Lymphocytes % 27 % (10-50); Monocytes % 6 % (2-9); Neutrophils % 60 % (42-76); Platelet Estimate Normal; RBC Morphology Normal; Total Cells Counted 100
[2022-03-18 14:49] LABS: Apearance,Urine Cloudy (Clear); Blood, Urine 3+ (Negative); Color,Urine Straw (Yellow); Glucose,Urine (UA) Negative (Negative); Ketones,Urine Negative (Negative); Protein,Urine 2+ (Negative)
[2022-03-18 14:50] LABS: Bilirubin,Urine Negative (Negative); UTC Leukocyte Esterase,Urine Negative (Negative); UTC Nitrate,Urine Negative (Negative); Urobilinogen,Urine 0.2 EU/dl (0.2)
== END 2022-03-18 13:50 | disposition home or self-care (01) ==
PROVIDERS: Emergency Provider Nurse Practitioner Family; PCP Emergency Medicine
DX: R31.9 Hematuria, unspecified (principal)
CPT/HCPCS: 80053; 81003; 85007; 85014; 85018; 85048; 85049; 87086; 99212; G0463

== ENCOUNTER → 2022-04-02 08:51 | Outpatient (CLI) | payer MEDICARE, MEDICAID, SELFPAY ==
--- NOTE | 2022-04-02 09:00 | CT_ITS ---
FINAL REPORT TECHNIQUE: Postcontrast axial images through the abdomen and pelvis were performed. This study was performed with techniques to keep radiation doses as low as reasonably achievable, (ALARA). Individualized dose reduction techniques using automated exposure control or adjustment of mA and/or kV according to the patient's size were employed. CLINICAL HISTORY: hematuria COMPARISON: 08/07/2021 FINDINGS: Abdomen: There is mild scarring in the lung bases. There are multiple less than 1 cm probable hepatic cysts. There are multiple gallstones in the gallbladder with mild gallbladder wall thickening, similar previous. The spleen is unremarkable. The adrenals are normal. The pancreas is unremarkable. There are multiple bilateral renal masses, likely represent cysts. There is a 20 mm posterior right renal mass which is stable in size favored to represent a mildly complicated cyst. An IVC filter is present. The aorta is normal in caliber. No free fluid or adenopathy is identified. Pelvis: The appendix is unremarkable. There is widespread colonic diverticulosis. There is a moderate to large amount of retained stool throughout the colon. The prostate is diffusely enlarged and indents the bladder base. There is diffuse bladder wall thickening, likely inflammatory. There is a 17 mm right posterior bladder diverticulum with worsening wall thickening and adjacent stranding, may represent localized cystitis. Neoplasm is felt less likely. No free fluid, free air, abscess or adenopathy is identified. IMPRESSION: Diffuse bladder wall thickening with a right posterior bladder diverticulum and adjacent stranding, may represent localized cystitis. Other stable findings as detailed above. Reviewed, Interpreted and Dictated by Farrukh Garduno III, MD Transcribed by Johanne Louis Authenticated and [facility]
== END ==
PROVIDERS: PCP Emergency Medicine; Visit Provider Emergency Medicine
DX: R31.9 Hematuria, unspecified (principal)
CPT/HCPCS: 74177; Q9967

== ENCOUNTER → 2022-04-02 11:20 | Outpatient (CLI) | payer MEDICARE, MEDICAID, SELFPAY | PROVIDERS: PCP Emergency Medicine; Visit Provider Emergency Medicine | DX: R10.32 Left lower quadrant pain (principal) | CPT/HCPCS: 74177; 87086; Q9967 ==

== ENCOUNTER → 2022-10-24 14:21 | Outpatient (CLI) | payer MEDICARE, MEDICAID, SELFPAY ==
[2022-10-24 13:36] LABS: Prostate Specific Ag Screen 1.6 ng/ml (0.0-4.0)
== END ==
PROVIDERS: PCP Emergency Medicine; Visit Provider Emergency Medicine
DX: Z12.5 Encounter for screening for malignant neoplasm of prostate; N40.1 Benign prostatic hyperplasia with lower urinary tract symptoms
CPT/HCPCS: G0103

== ENCOUNTER 2023-04-17 11:32 | Outpatient (CLI) | payer MEDICARE, SELFPAY ==
[2023-04-17 11:44] LABS: Basophils # 0.1 K/mm3 (0-0.2); Basophils % 0.8 % (0.1-2.0); Eosinophils % 9.1 % (0.1-12.0); Hemoglobin 15.8 g/dL (14.1-18.0); Lymphocytes # 2.5 K/mm3 (0.7-4.5); Lymphocytes % 23.4 % (10-50); Mean Corpuscular HGB Conc 33.7 g/dL (31.8-35.4); Mean Corpuscular Hemoglobin 32.6 pg (27.0-31.2); Mean Corpuscular Volume 96.8 fl (80-94); Mean Platelet Volume 9.8 fl (7.4-10.4); Monocytes # 0.7 K/mm3 (0.1-1.0); Monocytes % 6.5 % (1.7-9.3); Neutrophils # 6.4 K/mm3 (1.8-7.8); Neutrophils % 60.2 % (37.0-80.0); Platelet Count 239 K/mm3 (142-424); Red Blood Count 4.85 M/mm3 (4.60-6.20); Red Cell Distribution Width 13.4 % (11.5-17.5); White Blood Count 10.6 K/mm3 (4.8-10.8)
[2023-04-17 11:59] LABS: Alanine Aminotransferase 33 U/L (12-78); Albumin Level 3.9 g/dl (3.5-5.0); Albumin/Globulin Ratio 1.6 (1.1-1.8); Alkaline Phosphatase 74 U/L (38-126); Anion Gap 12.5 mEq/L (5-15); Aspartate Amino Transferase 26 U/L (17-59); Bilirubin,Total 0.4 mg/dl (0.2-1.3); Blood Urea Nitrogen 21 mg/dl (9-20); Calcium 9.1 mg/dl (8.4-10.2); Carbon Dioxide 20 mmol/L (22.0-30.0); Chloride 108 mmol/L (98-107); Cholesterol 189 mg/dl (140-200); Estimated Glomerular Filt Rate 55 ml/min (>60); GFR (African American) 66 ML/MIN (>60); Globulin 2.5 g/dL (1.3-3.2); Glucose 157 mg/dl (74-100); HDL Cholesterol 47 mg/dl (40-60); Potassium 4.5 mmoL/L (3.5-5.1); Sodium 136 mmol/L (136-145); Total Protein,Serum 6.4 g/dl (6.3-8.2); Triglycerides 117 mg/dl (30-150); VLDL Cholesterol 23 mg/dL (0-40)
[2023-04-17 12:10] LABS: Direct LDL Cholesterol 117.23 mg/dL (100-129)
[2023-04-17 12:16] LABS: 25-OH Vitamin D, Total 40.7 ng/mL (30-100)
[2023-04-17 12:28] LABS: Hemoglobin A1C 7.2 % (4.0-6.0)
[2023-04-17 12:30] LABS: Thyroid Stimulating Hormone 2.12 uIU/mL (0.465-4.68)
[2023-04-24 09:39] LABS: Testosterone, Total, LC/MS 300 ng/dL (.)
== END 2023-04-17 23:59 ==
LOC: LAB.DROPOF 11:34
PROVIDERS: PCP Nurse Practitioner Family; Visit Provider Nurse Practitioner Family
DX: E78.5 Hyperlipidemia, unspecified (principal); N28.9 Disorder of kidney and ureter, unspecified; E55.9 Vitamin D deficiency, unspecified; E11.9 Type 2 diabetes mellitus without complications; R53.83 Other fatigue; Z79.84 Long term (current) use of oral hypoglycemic drugs; Z79.899 Other long term (current) drug therapy
CPT/HCPCS: 80053; 80061; 82306; 83036; 84403; 84443; 85025

== ENCOUNTER 2023-09-16 16:22 | Emergency (ER) | payer MEDICARE, SELFPAY ==
[2023-09-16 16:45] VITALS: BP 147/90; PULSE 99; RESP 20; TEMP 36.9; O2SAT 93; BMI 25.1
[2023-09-16 16:56] LABS: Apearance,Urine Cloudy (Clear); Bilirubin,Urine Negative (Negative); Blood, Urine 3+ (Negative); Color,Urine Yellow (Yellow); Glucose,Urine (UA) Negative (Negative); Ketones,Urine Negative (Negative); PH,Urine 5.5 (5.0-8.5); Protein,Urine 3+ (Negative); Specific Gravity, Urine >= 1.030 (1.005-1.030); UTC Leukocyte Esterase,Urine 1+ (Negative); UTC Nitrate,Urine Positive (Negative); Urobilinogen,Urine 0.2 EU/dl (0.2)
--- NOTE | 2023-09-16 17:21 | ED_ITS ---
Discharge Plan Disposition Patient Disposition: Home, Self-Care Condition: Good Prescriptions Prescriptions: New nitrofurantoin monohyd/m-cryst [Macrobid] 100 mg capsule 100 mg PO Q12H 7 Days Qty: 14 0RF Rx Instructions: must administer with a meal/food No Action levothyroxine 25 mcg tablet See Rx Instructions .ROUTE .COMPLEX Qty: 90 0RF Dose Instruction: Take 1 tablet by mouth once daily Rx Instructions: Take 1 tablet by mouth once daily metformin 500 mg tablet See Rx Instructions .ROUTE .COMPLEX Qty: 180 0RF Dose Instruction: Take 1 tablet by mouth twice daily Rx Instructions: Take 1 tablet by mouth twice daily finasteride 5 mg tablet See Rx Instructions .ROUTE .COMPLEX Qty: 90 0RF Dose Instruction: Take 1 tablet by mouth once daily Rx Instructions: Take 1 tablet by mouth once daily tamsulosin 0.4 mg capsule See Rx Instructions .ROUTE .COMPLEX Qty: 90 0RF Dose Instruction: Take 1 capsule by mouth once daily Rx Instructions: Take 1 capsule by mouth once daily aspirin 81 mg Tablet,Chewable 81 mg PO DAILY Referrals Follow up/Referrals: Jose Brown DO [Primary Care Provider] - See instructions Clinical Impressions Clinical Impression: UTI (urinary tract infection) Instructions Patient Instructions: DI for Urinary Tract Infection (UTI) Discharge ED Provider: Marcia Prakash [facility] General Stated complaint: pain in his left shoulder,having trouble urinating Mode of Arrival: Ambulatory Source of Information: Patient Limitations: No Limitations Time Seen by Provider: 09/16/23 17:20 Description of Symptoms (Recalled from Triage Doc. by RN): PATIENT C/O DIFFICULTY URINATING, PAIN IN LEFT COLLAR BONE, AND SWELLING TO TOP OF LEFT THIGHT THAT STARTED TODAY. NO KNOWN INJURY HEENT Symptoms (Recalled from RN notes): No Resp Symptoms (Recalled from RN notes): No Skin Symptoms (Recalled from RN notes): No MS Symptoms (Recalled from RN notes): Yes Functional Status (Recalled from RN notes): WNL Related Data Home Medications Medication Instructions Recorded Confirmed aspirin 81 mg chewable tablet 81 mg PO DAILY 09/16/23 09/16/23 Previous Rx's Medication Instructions Recorded levothyroxine 25 mcg tablet See Rx Instructions .Route 06/23/23 .COMPLEX #90 tabs metformin 500 mg tablet See Rx Instructions .Route 06/23/23 .COMPLEX #180 tabs finasteride 5 mg tablet See Rx Instructions .Route 08/14/23 .COMPLEX #90 tabs tamsulosin 0.4 mg capsule See Rx Instructions .Route 08/14/23 .COMPLEX #90 caps nitrofurantoin 100 mg PO Q12H 7 days #14 caps 09/16/23 monohydrate/macrocrystals 100 mg capsule (Macrobid) Allergies Allergy/AdvReac Type Severity Reaction Status Date / Time No Known Drug Allergies Allergy Verified 04/17/23 09:47 Worker's Comp Is this a Worker's Comp case?: No PFSH PFS Disclaimer: The information contained in this section may have been updated after the patient was seen, as this information can be updated by other users. 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 (Updated 09/16/23 @ 17:28 by Marcia Prakash APRN) Prostate disorder Diabetes mellitus, type 2 Abnormal PSA Surgical History (Updated 09/16/23 @ 16:55 by Zenaida Sauceda RN) History of tonsillectomy Social History Smoking Status: Never smoker second hand exposure: No alcohol intake: never substance use type: denies use current occupational status: other Travel in the last 8 weeks: None household members: spouse housing: house current occupational exposures/hazards: No caffeine: Yes ROS Obtained: Yes All systems reviewed & no additional complaints except as documented Constitutional Constitutional: Reports system reviewed and no additional complaints, except as documented and Reports body ache Eyes Eyes: Reports system reviewed and no additional complaints, except as documented ENT Ears, Nose, Mouth, and Throat: Reports system reviewed and no additional complaints, except as documented Cardiovascular Cardiovascular: Reports system reviewed and no additional complaints, except as documented Respiratory Respiratory: Reports system reviewed and no additional complaints, except as documented Gastrointestinal Gastrointestingal: Reports system reviewed and no additional complaints, except as documented Genitourinary Male Genitourinary: Reports system reviewed and no additional complaints, except as documented, Reports oliguria, Reports urinary frequency and Reports urinary hesitancy Musculoskeletal Musculoskeletal: Reports system reviewed and no additional complaints, except as documented and Reports myalgias Integumentary/Breasts Skin/Breast: Reports system reviewed and no additional complaints, except as documented Neurologic Neurologic: Reports system reviewed and no additional complaints, except as documented Endocrine Endocrine: Reports system reviewed and no additional complaints, except as documented Hematologic/Lymphatic Henatologic/Lymphatic: Reports system reviewed and no additional complaints, except as documented Allergic/Immunologic Allergic/Immunologic: Reports system reviewed and no additional complaints, except as documented Physical Exam General General appearance: alert and in no apparent distress Head Head exam: atraumatic and normocephalic Eye Eye exam: Present normal appearance ENT ENT exam: Present normal exam Neck Neck exam: Present normal inspection Chest Chest inspection: Present normal inspection and symmetric chest wall rise Respiratory Respiratory exam: Present normal lung sounds bilaterally Cardiovascular Cardiovascular exam: Present regular rate and normal rhythm Abdominal Exam Abdominal exam: Present soft and normal bowel sounds Extremities Exam Extremities exam: Present normal inspection Back Exam Back exam: Present normal inspection Neurological Exam Neurological exam: Present alert and oriented X3 Psychiatric Psychiatric exam: Present normal affect and normal mood Skin Skin exam: Present warm, dry and intact Lymphatic Lymphatic Findings: L inguinal node enlarged Medical Decision Making Cuco Inquiry Pt receiving controlled substance: No Cuco was queried for this patient: No Vital Signs: 09/16/23 16:45 Temperature 98.4 F Temperature Source Oral Pulse Rate [Right Brachial] 99 H Respiratory Rate 20 Blood Pressure [Right Arm] 147/90 H Blood Pressure Mean [Right Arm] 109 Blood Pressure Source [Right Arm] Automatic Cuff Blood Pressure Position [Right Arm] Sitting 02 Sat by Pulse Oximetry 93 L Oxygen Delivery Method Room Air Lab Data Lab results reviewed: Yes I reviewed the patient's lab results. Lab Results 09/16/23 16:55: Urine Color Yellow, Urine Appearance Cloudy, Urine pH 5.5, Ur Specific [place] >= 1.030, Urine Protein 3+, Urine Glucose (UA) Negative, Urine Ketones Negative, Urine Blood 3+, Urine Nitrate Positive A, Urine Bilirubin Negative, Urine Urobilinogen 0.2, Ur Leukocyte Esterase 1+ A Orders (Tests/Meds): ORDERS Category Date Time Status Urine Culture Stat Micro 09/16/23 16:40 Ordered
[2023-09-16 17:31] VITALS: BP 147/90; PULSE 99; RESP 20; TEMP 36.9; O2SAT 93
== END 2023-09-16 17:38 | disposition home or self-care (01) ==
PROVIDERS: Emergency Provider Nurse Practitioner Family; PCP Internal Medicine
DX: N39.0 Urinary tract infection, site not specified (principal); B95.2 Enterococcus as the cause of diseases classified elsewhere; M25.512 Pain in left shoulder
CPT/HCPCS: 81003; 87086; 87088; 87186; 99212; 99214; G0463

== ENCOUNTER 2023-09-17 18:00 | Outpatient (CLI) | payer MEDICARE, SELFPAY ==
[2023-09-17 20:05] LABS: Hemoglobin A1C 6.9 % (4.0-6.0)
[2023-09-17 20:13] LABS: Prostate Specific Ag Screen 4.3 ng/ml (0.0-4.0)
== END 2023-09-17 23:59 | disposition home or self-care (01) ==
LOC: LAB.DROPOF 09-18 15:20
PROVIDERS: Visit Provider Family Medicine
DX: E11.9 Type 2 diabetes mellitus without complications; Z12.5 Encounter for screening for malignant neoplasm of prostate; Z79.84 Long term (current) use of oral hypoglycemic drugs
CPT/HCPCS: 83036; G0103

== ENCOUNTER 2023-10-17 08:46 | Observation (INO) | payer MEDICARE, SELFPAY ==
[2023-10-17] VITALS (10 sets, daily range): BP systolic 101–159; BP diastolic 69–98; PULSE 75–95; RESP 16–19; TEMP 36.4–36.7; O2SAT 93–99; BMI 23.6; BMI 23.7; BMI 22.6
--- NOTE | 2023-10-17 09:22 | ED_ITS ---
Discharge Plan Disposition Patient Disposition: Still a Patient Condition: Good Prescriptions Prescriptions: No Action finasteride 5 mg tablet See Rx Instructions .ROUTE .COMPLEX Qty: 90 0RF Dose Instruction: Take 1 tablet by mouth once daily Rx Instructions: Take 1 tablet by mouth once daily tamsulosin 0.4 mg capsule See Rx Instructions .ROUTE .COMPLEX Qty: 90 0RF Dose Instruction: Take 1 capsule by mouth once daily Rx Instructions: Take 1 capsule by mouth once daily metformin 500 mg tablet See Rx Instructions .ROUTE .COMPLEX Qty: 180 0RF Dose Instruction: Take 1 tablet by mouth twice daily Rx Instructions: Take 1 tablet by mouth twice daily levothyroxine 25 mcg tablet See Rx Instructions .ROUTE .COMPLEX Qty: 90 0RF Dose Instruction: Take 1 tablet by mouth once daily Rx Instructions: Take 1 tablet by mouth once daily sulfamethoxazole-trimethoprim [Bactrim DS] 800-160 mg tablet 1 tab PO Q12H 10 Days Qty: 20 0RF aspirin 81 mg Tablet,Chewable 81 mg PO DAILY Referrals Follow up/Referrals: Jose Brown DO [Primary Care Provider] - See instructions Discharge ED Provider: Sohail ([facility])[place] [facility] [place] General Stated complaint: loss of appitite nausea dry heave Mode of Arrival: Ambulatory Source of Information: Patient Limitations: No Limitations Time Seen by Provider: 10/17/23 09:22 Description of Symptoms (Recalled from Triage Doc. by RN): PATIENT C/O VOMITING AND DECREASED APPETITE. HE STATES HE IS NOT ABLE TO KEEP FLUIDS DOWN AND HAS NOT EATEN SINCE LAST THURSDAY HEENT Symptoms (Recalled from RN notes): No Resp Symptoms (Recalled from RN notes): No Skin Symptoms (Recalled from RN notes): No MS Symptoms (Recalled from RN notes): No Functional Status (Recalled from RN notes): WNL History of Present Illness Provider Complaint: 73 yr old male presents for n/v and decrease intake since Thursday. pt states he has been taking Bactrim for uti and thinks its causing him to be sick. pt states he has a mri scheduled to look at his prostate because he has been not able to urinate on own has been straight cath q6 hours. pt states he feels weak from not being able to keep anything down. states he told the urologist and he told him to discuss it with his pcp. Related Data Home Medications Medication Instructions Recorded Confirmed aspirin 81 mg chewable tablet 81 mg PO DAILY 09/16/23 10/17/23 Previous Rx's Medication Instructions Recorded levothyroxine 25 mcg tablet See Rx Instructions .Route 09/21/23 .COMPLEX #90 tabs metformin 500 mg tablet See Rx Instructions .Route 09/21/23 .COMPLEX #180 tabs sulfamethoxazole 800 1 tab PO Q12H 10 days #20 tabs 10/05/23 mg-trimethoprim 160 mg tablet (Bactrim DS) finasteride 5 mg tablet See Rx Instructions .Route 10/12/23 .COMPLEX #90 tabs tamsulosin 0.4 mg capsule See Rx Instructions .Route 10/12/23 .COMPLEX #90 caps Allergies Allergy/AdvReac Type Severity Reaction Status Date / Time No Known Drug Allergies Allergy Verified 10/12/23 12:16 Worker's Comp Is this a Worker's Comp case?: No [facility] Disclaimer: The information contained in this section may have been updated after the patient was seen, as this information can be updated by other users. 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 Social History Smoking Status: Never smoker second hand exposure: No alcohol intake: never substance use type: denies use current occupational status: other Travel in the last 8 weeks: None household members: spouse housing: house current occupational exposures/hazards: No caffeine: Yes ROS Obtained: Yes All systems reviewed & no additional complaints except as documented Constitutional Constitutional: Reports system reviewed and no additional complaints, except as documented, Reports as per HPI, Reports fatigue and Reports poor appetite Eyes Eyes: Reports system reviewed and no additional complaints, except as documented ENT Ears, Nose, Mouth, and Throat: Reports system reviewed and no additional complaints, except as documented Cardiovascular Cardiovascular: Reports system reviewed and no additional complaints, except as documented Gastrointestinal Gastrointestingal: Reports system reviewed and no additional complaints, except as documented Genitourinary Male Genitourinary: Reports system reviewed and no additional complaints, except as documented, Reports as per HPI and Reports oliguria Musculoskeletal Musculoskeletal: Reports system reviewed and no additional complaints, except as documented Integumentary/Breasts Skin/Breast: Reports system reviewed and no additional complaints, except as documented Endocrine Endocrine: Reports fatigue Physical Exam General General appearance: alert and in no apparent distress Head Head exam: atraumatic Eye Eye exam: Present normal appearance ENT ENT exam: Present normal exam and normal oropharynx Respiratory Respiratory exam: Present normal lung sounds bilaterally Cardiovascular Cardiovascular exam: Present regular rate and normal rhythm Abdominal Exam Abdominal exam: Present soft and normal bowel sounds; Absent distention, tenderness, guarding or diminished bowel sounds Neurological Exam Neurological exam: Present alert and oriented X3 Psychiatric Psychiatric exam: Present normal affect Skin Skin exam: Present warm and intact Lymphatic Lymphatic Findings: no adenopathy Medical Decision Making Medical Records Medical records reviewed: Yes I reviewed the patient's medical records. Cuco Inquiry Pt receiving controlled substance: No Cuco was queried for this patient: No Vital Signs: 10/17/23 09:00 Temperature 97.7 F Temperature Source Oral Pulse Rate [Left Brachial] 95 H Respiratory Rate 19 Blood Pressure [Left Arm] 109/73 L Blood Pressure Mean [Left Arm] 85 Blood Pressure Source [Left Arm] Automatic Cuff Blood Pressure Position [Left Arm] Sitting 02 Sat by Pulse Oximetry 96 Oxygen Delivery Method Room Air Lab Data Lab results reviewed: Yes I reviewed the patient's lab results. 10/17/23 09:39 10/17/23 09:39 Orders (Tests/Meds): ORDERS Category Date Time Status CBC Man Diff [Complete Blood Count Man Dif] Stat Lab 10/17/23 09:11 Ordered CMP [Comprehensive Metabolic Panel] Stat Lab 10/17/23 09:11 Ordered Lactic Acid Stat Lab 10/17/23 09:11 Ordered Physician Consults Physician Consulted: dr elkins Reason -: Pt condition Comment/Response: increase in cre-n/v
[2023-10-17] MEDS: SODIUM CHLORIDE 0.9% 10ML FLUSH SYRINGE 10 ML IV (09:30)
[2023-10-17 09:55] LABS: MANUAL DIFFERENTIAL MANUAL DIFFERENTIAL (MANUAL DIFF)
[2023-10-17 10:22] LABS: Basophils # 0.1 K/mm3 (0-0.2); Basophils % 0.6 % (0.1-2.0); Eosinophils # 0.4 K/mm3 (0.0-0.4); Eosinophils % 3.7 % (0.1-12.0); Hematocrit 47.8 % (42.0-52.0); Hemoglobin 15.5 g/dL (14.1-18.0); Lactic Acid 1.7 mmol/L (0.7-2.1); Lymphocytes # 1.4 K/mm3 (0.7-4.5); Lymphocytes % 12.5 % (10-50); Mean Corpuscular HGB Conc 32.5 g/dL (31.8-35.4); Mean Corpuscular Hemoglobin 31.6 pg (27.0-31.2); Mean Corpuscular Volume 97.3 fl (80-94); Mean Platelet Volume 10.1 fl (7.4-10.4); Monocytes # 0.5 K/mm3 (0.1-1.0); Monocytes % 4.3 % (1.7-9.3); Neutrophils # 8.9 K/mm3 (1.8-7.8); Neutrophils % 78.8 % (37.0-80.0); Platelet Count 211 K/mm3 (142-424); Red Blood Count 4.91 M/mm3 (4.60-6.20); Red Cell Distribution Width 13.8 % (11.5-17.5); White Blood Count 11.3 K/mm3 (4.8-10.8)
[2023-10-17 10:23] LABS: Alanine Aminotransferase 27 U/L (12-78); Albumin Level 4.3 g/dl (3.5-5.0); Albumin/Globulin Ratio 1.3 (1.1-1.8); Alkaline Phosphatase 89 U/L (38-126); Anion Gap 17.8 mEq/L (5-15); Aspartate Amino Transferase 27 U/L (17-59); Bilirubin,Total 0.7 mg/dl (0.2-1.3); Blood Urea Nitrogen 45 mg/dl (9-20); Calcium 9.4 mg/dl (8.4-10.2); Carbon Dioxide 18 mmol/L (22.0-30.0); Chloride 105 mmol/L (98-107); Creatinine Clearance Estimated 27 mL/min (50-200); Estimated Glomerular Filt Rate 24 ml/min (>60); GFR (African American) 30 ML/MIN (>60); Globulin 3.2 g/dL (1.3-3.2); Glucose 164 mg/dl (74-100); Potassium 4.8 mmoL/L (3.5-5.1); Sodium 136 mmol/L (136-145); Total Protein,Serum 7.5 g/dl (6.3-8.2)
[2023-10-17 10:32] LABS: Apearance,Urine Cloudy (Clear); Bilirubin,Urine 1+ (Negative); Blood, Urine 3+ (Negative); Color,Urine Dark Yellow (Yellow); Glucose,Urine (UA) Negative (Negative); Ketones,Urine Negative (Negative); Protein,Urine 2+ (Negative); Specific Gravity, Urine 1.025 (1.005-1.030); UTC Leukocyte Esterase,Urine Negative (Negative); UTC Nitrate,Urine Negative (Negative); Urobilinogen,Urine 1 EU/dl (0.2)
[2023-10-17] MEDS: ONDANSETRON 4MG/2ML VIAL 4 MG IV (10:49)
[2023-10-17] MEDS: 0.9 % SODIUM CHLORIDE 1000ML 1,000 ML 125 ML IV ×2 (10:49→15:55)
--- NOTE | 2023-10-17 11:00 | PC.NURSE ---
PATIENT SENT TO ER FOR ADMISSION PER Zoey BONNER APRN. REPORT GIVEN TO DR. HERRERA BY Zoey BONNER APRN. PATIENT TRANSPORTED TO ER VIA WHEELCHAIR WITH [facility] STAFF ASSIST. AT BEDSIDE
--- NOTE | 2023-10-17 11:30 | PC.NURSE ---
DR HERRERA AT BEDSIDE
--- NOTE | 2023-10-17 11:38 | PC.NURSE ---
DR HERRERA SPEAKING WITH HOSPITALIST
--- NOTE | 2023-10-17 11:40 | HMH.EDGENADL ---
Discharge Plan Disposition Patient Disposition: Still a Patient Condition: Good Prescriptions Prescriptions: No Action finasteride 5 mg tablet See Rx Instructions .ROUTE .COMPLEX Qty: 90 0RF Dose Instruction: Take 1 tablet by mouth once daily Rx Instructions: Take 1 tablet by mouth once daily tamsulosin 0.4 mg capsule See Rx Instructions .ROUTE .COMPLEX Qty: 90 0RF Dose Instruction: Take 1 capsule by mouth once daily Rx Instructions: Take 1 capsule by mouth once daily metformin 500 mg tablet See Rx Instructions .ROUTE .COMPLEX Qty: 180 0RF Dose Instruction: Take 1 tablet by mouth twice daily Rx Instructions: Take 1 tablet by mouth twice daily levothyroxine 25 mcg tablet See Rx Instructions .ROUTE .COMPLEX Qty: 90 0RF Dose Instruction: Take 1 tablet by mouth once daily Rx Instructions: Take 1 tablet by mouth once daily sulfamethoxazole-trimethoprim [Bactrim DS] 800-160 mg tablet 1 tab PO Q12H 10 Days Qty: 20 0RF aspirin 81 mg Tablet,Chewable 81 mg PO DAILY Referrals Follow up/Referrals: Jose Brown DO [Primary Care Provider] - See instructions Clinical Impressions Clinical Impression: RODGER (acute kidney injury), Acute dehydration Discharge ED Provider: Dinorah Flaherty General Adult HPI General Chief complaint: Recheck/Abnormal Lab/Rx Stated complaint: loss of appitite nausea dry heave Time Seen by Provider: 10/17/23 09:22 Mode of Arrival: Wheelchair Source of Information: Patient Limitations: No Limitations Description of Symptoms (Recalled from ER Triage Doc. by RN): PATIENT C/O VOMITING AND DECREASED APPETITE. HE STATES HE IS ABLE TO DRINK BUT HAS NOT EATEN AND BEEN ABLE TO KEEP IT DOWN SINCE LAST THURSDAY. Patient sent from [facility] for possible RODGER. History of Present Illness HPI narrative: Patient is a 73-year-old male presents today from the urgent treatment clinic with an acute kidney injury. Patient has a known history of diabetes has had issues with his prostate over the last year has had decreased urine output at times which she describes as dribbling urination. He states that otherwise he had no other symptoms up until about 2 weeks ago when he had a significant difficult time and he was diagnosed with a urinary tract infection and started on Cipro. He followed up with Dr. Martinez urologist who diagnosed him with neurogenic bladder he has been intermittently cathing every 6 hours and was transitioned to Bactrim. Patient states that when he started Bactrim he started feeling sick nauseated had decreased p.o. intake which is what he presented to the emergency department/[facility] today 4. He had labs done in the urgent treatment clinic showing a creatinine of 2.6 up from a baseline of 1.3. He has no other urinary tract infection symptoms and his urinalysis did not continue to demonstrate any significant evidence of infection. He denies any abdominal pain weight loss night sweats etc. He has an outpatient MRI scheduled as they are continuing to workup this questionable neurogenic bladder. Related Data Home Medications Medication Instructions Recorded Confirmed aspirin 81 mg chewable tablet 81 mg PO DAILY 09/16/23 10/17/23 Previous Rx's Medication Instructions Recorded levothyroxine 25 mcg tablet See Rx Instructions .Route 09/21/23 .COMPLEX #90 tabs metformin 500 mg tablet See Rx Instructions .Route 09/21/23 .COMPLEX #180 tabs sulfamethoxazole 800 1 tab PO Q12H 10 days #20 tabs 10/05/23 mg-trimethoprim 160 mg tablet (Bactrim DS) finasteride 5 mg tablet See Rx Instructions .Route 10/12/23 .COMPLEX #90 tabs tamsulosin 0.4 mg capsule See Rx Instructions .Route 10/12/23 .COMPLEX #90 caps Allergies Allergy/AdvReac Type Severity Reaction Status Date / Time No Known Drug Allergies Allergy Verified 10/12/23 12:[address] [facility] Disclaimer: The information contained in this section may have been updated after the patient was seen, as this information can be updated by other users. 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) History of tonsillectomy Social History Smoking Status: Unknown if ever smoked second hand exposure: No alcohol intake: never substance use type: denies use current occupational status: other Travel in the last 8 weeks: None household members: spouse housing: house current occupational exposures/hazards: No caffeine: Yes ROS Obtained: Yes All systems reviewed & no additional complaints except as documented Physical Exam General General appearance: alert and in no apparent distress Respiratory Respiratory exam: Present normal lung sounds bilaterally Cardiovascular Cardiovascular exam: Present regular rate Abdominal Exam Abdominal exam: Present soft; Absent distention or tenderness Neurological Exam Neurological exam: Present alert and oriented X3 Medical Decision Making Cuco Inquiry Pt receiving controlled substance: No Vital Signs: 10/17/23 09:00 10/17/23 11:05 10/17/23 11:15 Temperature 97.7 F 97.7 F Temperature Source Oral Oral Pulse Rate 80 Pulse Rate [Left Brachial] 95 H 80 Respiratory Rate 19 16 17 Blood Pressure [Left Arm] 109/73 L 125/90 Blood Pressure Mean [Left Arm] 85 101 Blood Pressure Source [Left Arm] Automatic Cuff Automatic Cuff Blood Pressure Position [Left Arm] Sitting Supine 02 Sat by Pulse Oximetry 96 93 L 98 Oxygen Delivery Method Room Air Room Air Room Air Lab Data Lab results reviewed: Yes I reviewed the patient's lab results. Lab Results 10/17/23 09:39: WBC 11.3 H, RBC 4.91, Hgb 15.5, Hct 47.8, MCV 97.3 H, MCH 31.6 H, MCHC 32.5, RDW 13.8, Plt Count 211, MPV 10.1, Neut % (Auto) 78.8, Lymph % (Auto) 12.5, [place] % (Auto) 4.3, Eos % (Auto) 3.7, Baso % (Auto) 0.6, Neut # (Auto) 8.9 H, Lymph # (Auto) 1.4, [place] # (Auto) 0.5, Eos # (Auto) 0.4, Baso # (Auto) 0.1, Sodium 136, Potassium 4.8, Chloride 105, Carbon Dioxide 18 L, Anion Gap 17.8 H, BUN 45 H, Creatinine 2.60 H, Estimated Creat Clear 27, Estimated GFR 24 L, Est GFR ( Amer) 30 L, Glucose 164 H, Lactate 1.7, Calcium 9.4, Total Bilirubin 0.7, AST 27, ALT 27, Alkaline Phosphatase 89, Total Protein 7.5, Albumin 4.3, Globulin 3.2, Albumin/Globulin Ratio 1.3 10/17/23 10:25: Urine Color Dark yellow, Urine Appearance Cloudy, Urine pH 5.0, Ur Specific [place] 1.025, Urine Protein 2+, Urine Glucose (UA) Negative, Urine Ketones Negative, Urine Blood 3+, Urine Nitrate Negative, Urine Bilirubin 1+ A, Urine Urobilinogen 1, Ur Leukocyte Esterase Negative 10/17/23 09:39 10/17/23 09:39 Orders (Tests/Meds): ED MEDICATIONS Generic Name Dose Route Start Last Admin Trade Name Freq PRN Reason Stop Dose Admin Sodium Chloride 1,000 mls @ 125 mls/hr 10/17/23 10:45 10/17/23 10:49 Sod Chlor 0.9% 1000ml Bag IV 11/16/23 10:44 125 mls/hr .Q8H [place] Administration Sodium Chloride 10 ml 10/17/23 09:48 10/17/23 09:30 Sodium Chloride 0.9% 10ml Flush Syringe IV 11/16/23 09:47 10 ml NEEDED PRN Administration Maintain IV Site Discontinued Medications Generic Name Dose Route Start Last Admin Trade Name Freq PRN Reason Stop Dose Admin Ondansetron HCl 4 mg 10/17/23 10:39 10/17/23 10:49 Ondansetron 4mg/2ml Vial IV 10/17/23 10:40 4 mg ONCE ONE Administration ORDERS Category Date Time Status POCUS Point of Care (ER Only) Stat Exams 10/17/23 11:26 Ordered CBC Man Diff [Complete Blood Count Man Dif] Stat Lab 10/17/23 09:39 Results CMP [Comprehensive Metabolic Panel] Stat Lab 10/17/23 09:39 Completed Hemoglobin A1C Stat Lab 10/17/23 09:35 Received Lactic Acid Stat Lab 10/17/23 09:39 Completed Medical Decision Narrative: 73-year-old male presents today with acute kidney injury likely secondary to decreased p.o. intake and Bactrim induced no evidence of ongoing urinary tract infection limited bedside ultrasound did not demonstrate evidence of obstructive uropathy. IV fluids administered and patient was admitted to hospital medicine. Procedures Miscellaneous Procedure Procedure Performed: Limited renal ultrasound Indication: A focused ultrasound of the kidneys was performed to evaluate for hydronephrosis and nephrolithiasis. The ultrasound was performed with the following indications, as noted in the H&P: Acute kidney injury Identified structures: [-R kidney - L kidney - Both kidneys] [-Bladder] Findings: Bilateral kidneys did not demonstrate any moderate or severe hydronephrosis bladder did have urine within it there is a very large seemingly homogenous prostate that was viewed cannot rule out malignancy. No evidence of obstructive uropathy. Impression: Unremarkable emergency limited bedside ultrasound of the kidney and bladder is without evidence of moderate or severe hydronephrosis suggesting that there is no obstructive uropathy. There is a significantly enlarged prostate which is consistent with history cannot rule out malignancy. Images were saved to permanent archive The study was technically adequate CPT: 81557-46 This study was performed by me, and I personally interpreted all images/videos. Based on my clinical judgement, these images were adequate and did not necessitate further imaging. Critical Care Critical Care Time Critical Care Time: No
[2023-10-17] MEDS: LACTATED RINGERS 1000ML 1,000 ML 999 ML IV (11:46)
--- NOTE | 2023-10-17 11:47 | PC.NURSE ---
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
--- NOTE | 2023-10-17 12:10 | PC.NURSE ---
REPORT CALLED TO GURDEEP PEREZ
--- NOTE | 2023-10-17 12:16 | HMH.PHAINT1 ---
Pharmacy Intervention Comments: MEDICATION RECONCILIATION COMPLETE USING RECENT UROLOGY OFFICE VISIT NOTE AND EXTERNAL PHARMACY FILL HISTORY.
[2023-10-17] MEDS: FINASTERIDE 5 MG 1 EACH PO (14:44)
[2023-10-17] MEDS: PT OWN MED *ASPIRIN 81 MG EC TAB 1 EACH PO (14:44)
--- NOTE | 2023-10-17 14:51 | P.HP_ITS ---
History of Present Illness *Admission Date: 10/17/23 *Reason for visit:: Weakness *History of present illness: This is a 73-year-old male who presents to [facility] ED after being evaluated at a local urgent treatment center for weakness. At the [facility] [[email or web address]] a chemistry panel identified a creatinine of 2.6. He is accompanied by his Kristan. He reports a chronic history of benign prostatic hypertrophy with elevated PSA levels and recent urology evaluation. He was placed on Bactrim and has been taking the antibiotic with identified loss of energy, weakness and general malaise. He reports a chronic history of urinary hesitancy, urine retention and self cathing. His CBC identified WBC 11.3 with normal hemoglobin and platelet count. His lactic acid was negative. LFTs were normal and a recent PSA was 4.3 (September 2023). Currently he denies dysuria, gross hematuria or penile discharge. He reports no associated fever, chills, confusion or syncope. He does endorse lightheadedness. He reports no falls. [facility] 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 (Updated 10/17/23 @ 15:22 by Omar Belcher MD) Diverticulosis Degenerative joint disease of cervical spine Hypothyroidism Renal cyst BPH (benign prostatic hyperplasia) Diabetes mellitus, type 2 Abnormal PSA Surgical History (Updated 10/17/23 @ 15:22 by Omar Belcher MD) Status post ORIF of fracture of ankle S/P cervical spinal fusion H/O colonoscopy S/P IVC filter History of tonsillectomy Family History (Updated 10/17/23 @ 15:23 by Omar Belcher MD) Mother COPD (chronic obstructive pulmonary disease) Father Dementia Social History (Updated 10/17/23 @ 15:27 by Omar Belcher MD) Smoking Status: Former smoker years smoked: 40 smoking status stop date: 2013 second hand exposure: No alcohol intake: never substance use type: denies use current occupational status: retired Travel in the last 8 weeks: None household members: spouse housing: house lives independently: Yes marital status: number of children: 1 current occupational exposures/hazards: No caffeine: Yes Review of Systems Review of Systems Review of systems:: pertinent systems reviewed and negative unless documented below Constitutional Constitutional: Denies chills, Denies fever(s) and Denies frequent falls *Cardiovascular Cardiovascular: Denies chest pain, Denies dyspnea, Denies dyspnea on exertion, Denies palpitations and Denies syncope *Respiratory Respiratory: Denies cough, Denies dyspnea and Denies dyspnea on exertion *Gastrointestinal Gastrointestinal: Denies hematochezia, Denies loose stools, Denies melena, Reports nausea and Denies vomiting *Genitourinary Genitourinary: Reports difficulty urinating, Denies dysuria, Denies penile discharge and Reports urinary hesitancy *Neurologic Neurologic: Denies confusion, Denies localized weakness, Denies frequent falls and Denies syncope Psychiatric Psychiatric: Denies confusion Endocrine Endocrine: Denies palpitations Meds Home Medications and Allergies Home Medications Medication Instructions Recorded Confirmed Type aspirin 81 mg chewable tablet 81 mg PO DAILY 09/16/23 10/17/23 History finasteride 5 mg tablet 5 mg PO DAILY 10/17/23 10/17/23 History levothyroxine 25 mcg tablet 25 mcg PO DAILY 10/17/23 10/17/23 History metformin 500 mg tablet 500 mg PO BIDWMEAL 10/17/23 10/17/23 History tamsulosin 0.4 mg capsule 0.4 mg PO HS 10/17/23 10/17/23 History New Prescriptions to Start Prescriptions: Allergies Allergy/AdvReac Type Severity Reaction Status Date / Time No Known Drug Allergies Allergy Verified 10/12/23 12:16 Exam Data for Last 24 hours Vital signs and Labs for Last 24 Hours: Temp Pulse Resp BP Pulse Ox O2 Del Method 97.9 F 78 16 159/96 H 98 Room Air 10/17/23 12:25 10/17/23 12:25 10/17/23 12:25 10/17/23 12:25 10/17/23 12:25 10/17/23 14:46 Laboratory Results - last 24 hr 10/17/23 09:35: Hemoglobin A1c 7.0 H 10/17/23 09:39: WBC 11.3 H, RBC 4.91, Hgb 15.5, Hct 47.8, MCV 97.3 H, MCH 31.6 H , MCHC 32.5, RDW 13.8, Plt Count 211, MPV 10.1, Neut % (Auto) 78.8, Lymph % (Auto) 12.5, [place] % (Auto) 4.3, Eos % (Auto) 3.7, Baso % (Auto) 0.6, Neut # (Auto) 8.9 H, Lymph # (Auto) 1.4, [place] # (Auto) 0.5, Eos # (Auto) 0.4, Baso # (Auto) 0.1, Sodium 136, Potassium 4.8, Chloride 105, Carbon Dioxide 18 L, Anion Gap 17.8 H, BUN 45 H, Creatinine 2.60 H, Estimated Creat Clear 27, Estimated GFR 24 L, Est GFR ( Amer) 30 L, Glucose 164 H, Lactate 1.7, Calcium 9.4, Total Bilirubin 0.7, AST 27, ALT 27, Alkaline Phosphatase 89, Total Protein 7.5, Albumin 4.3, Globulin 3.2, Albumin/Globulin Ratio 1.3 10/17/23 10:25: Urine Color Dark yellow, Urine Appearance Cloudy, Urine pH 5.0, Ur Specific [place] 1.025, Urine Protein 2+, Urine Glucose (UA) Negative, Urine Ketones Negative, Urine Blood 3+, Urine Nitrate Negative, Urine Bilirubin 1+ A, Urine Urobilinogen 1, Ur Leukocyte Esterase Negative I & O for Last 24 hours: Intake & Output 10/14/23 10/15/23 10/16/23 10/17/23 23:59 23:59 23:59 23:59 Intake Total 480 / 480 Balance 480 / 480 Weight 72.575 kg Constitutional Constitutional: average body habitus, chronically ill appearing and cooperative *Routine HEENT Exam Head: Present normocephalic Eye: Present EOMI and PERRL ENT: Present mucous membranes dry *Routine Neck Exam Neck: Absent JVD or lymphadenopathy *Routine Respiratory Exam Respiratory: Present rhonchi, normal respiratory effort and symmetric chest movement *Routine Cardiovascular Exam Cardiovascular: Present RRR *Routine Abdominal Exam Abdominal: Present soft; Absent tenderness *Routine Rectal Exam Rectal:: deferred *Routine Genitalia Exam Genitalia:: deferred Assessment and Plan *Assessment and plan (1) RODGER (acute kidney injury): Status: Acute Category: Medical Code(s): N17.9 - Acute kidney failure, unspecified (2) Obstructive uropathy: Status: Acute Category: Medical Code(s): N13.9 - Obstructive and reflux uropathy, unspecified (3) BPH (benign prostatic hyperplasia): Status: Acute Qualifiers: Lower urinary tract symptom detail: incomplete bladder emptying Lower urinary tract symptom presence: symptoms present Qualified Code(s): N40.1 - Benign prostatic hyperplasia with lower urinary tract symptoms; R39.14 - Feeling of incomplete bladder emptying Category: Medical Code(s): N40.0 - Benign prostatic hyperplasia without lower urinary tract symptoms (4) Renal cyst: Status: Acute Category: Medical Code(s): N28.1 - Cyst of kidney, acquired (5) Diabetes mellitus: Status: Acute Category: Medical Code(s): E11.9 - Type 2 diabetes mellitus without complications (6) Hypothyroidism: Status: Acute Category: Medical Code(s): E03.9 - Hypothyroidism, unspecified Plan 73-year-old male with recent urology evaluation for elevated PSA, BPH and obstructive uropathy started on Bactrim with near completion of therapy presenting with weakness and general malaise to an urgent treatment center and care transition to local ED with identified RODGER. Problems addressed as follows RODGER Obstructive uropathy Benign prostatic hypertrophy Elevated PSA Renal cysts Telemetry monitoring IV fluid resuscitation Dual alpha-emi therapy Accurate I's and O's Trending electrolytes, magnesium and creatinine Previous CT abdomen and pelvis (2021) reviewedWith renal cysts noted Urine culture (09/16/2023) with Enterobacter cloacae with sensitivities reviewed Blood cultures pending Antiemetic therapy Pain control Diabetes Routine blood sugar monitoring Hemoglobin A1c 7.0% Basal insulin therapy Sliding scale insulin therapy Carbohydrate controlled diet Hypothyroidism Levothyroxine replacement therapy VTE prophylaxis: Heparin CODE STATUS: Full code POA: Kristan- The length of stay for this patient will be 2 midnights or greater due to above diagnoses.
[2023-10-17] MEDS: PANTOPRAZOLE 40MG TABLET 40 MG PO (15:55)
[2023-10-17 16:41] LABS: POC Glucose,Bedside 126 (70-110)
--- NOTE | 2023-10-17 18:17 | PC.NURSE ---
pt has remained on room air this shift. pt has had no complaints throughout shift. pt has been eating more than what he had been previously. pt has denied n/v. no new orders at this time. call light within reach.
[2023-10-17 20:08] LABS: Eosinophils % 5 % (0-3); Lymphocytes % 15 % (10-50); Monocytes % 5 % (2-9); Neutrophils % 75 % (42-76); Platelet Estimate Normal; RBC Morphology Normal; Total Cells Counted 100
[2023-10-17 20:20] LABS: POC Glucose,Bedside 163 (70-110)
[2023-10-17] MEDS: HEPARIN SODIUM 5,000 UNIT/ML VIAL 5000 UNIT SQ (20:48)
[2023-10-17] MEDS: humaLOG 100 UNITS/ML 10ML VIAL (SSI) SQ (20:49)
[2023-10-17] MEDS: INSULIN GLARGINE 100 UNITS/ML 3ML FLEXPEN 10 UNIT SQ (20:49)
[2023-10-17] MEDS: PT OWN MED *TAMSULOSIN 0.4 MG CAP 1 EACH PO (20:50)
[2023-10-17 22:09] LABS: Microscopic, Urine URINE MICROSCOPIC (MICROSCOPIC)
[2023-10-17 22:13] LABS: Bilirubin,Urine Negative (Negative); Blood, Urine 2+ (Negative); Color,Urine YELLOW (Yellow); Glucose,Urine (UA) Negative (Negative); Ketones,Urine Negative (Negative); Leukocyte Esterase,Urine TRACE (Negative); Nitrate,Urine Negative (Negative); Protein,Urine 1+ (Negative)
[2023-10-17 22:14] LABS: Appearance,Urine Slightly Cloudy (Clear)
[2023-10-17 22:23] LABS: WBC,Urine Occasional #/hpf (0-3)
[2023-10-17] MEDS: POLYETHYLENE GLYCOL 3350 17 GM PACKET PO (22:23)
[2023-10-18] MEDS: 0.9 % SODIUM CHLORIDE 1000ML 1,000 ML 125 ML IV (01:13)
[2023-10-18 04:00] VITALS: BP 109/71; PULSE 81; RESP 18; TEMP 36.8; O2SAT 98; BMI 23.1
[2023-10-18 05:46] LABS: POC Glucose,Bedside 106 (70-110)
--- NOTE | 2023-10-18 05:51 | PC.NURSE ---
Patient is alert and oriented and has tolerated room air. Pt was having urinary retention at the beginning of the shift and bladder scan revealed 400ml of urine. PROFESSOR OF KINESIOLOGY was notified and was ordered to insert a campo catheter. Patient tolerated procedure well. Pt also states that he has not had a bowel movement in almost two weeks. PROFESSOR OF KINESIOLOGY was notified and miralax was given. No BM at this time.
[2023-10-18] MEDS: LEVOTHYROXINE 25 MCG 1 EACH PO (06:33)
--- NOTE | 2023-10-18 07:20 | EXP.PN ---
Subjective *Date: 10/18/23 *Time: 09:44 Interval history: The patient is seen and examined at bedside today. I am accompanied by his nurse Jose. Nursing staff report that he remains afebrile with stable vital signs and saturating appropriately on room air. He is tolerating his Lopez catheter with good urine output reported. He reports that he is feeling better. His morning WBC is 9.7 his hemoglobin is stable. His platelets are normal. His electrolytes have improved and his creatinine is down to 1.8. His procalcitonin is negative. Exam Data for Last 24 hours Vital signs and Labs for Last 24 Hours: Temp Pulse Resp BP Pulse Ox O2 Del Method 98.2 F 81 18 109/71 L 98 Room Air 10/18/23 04:00 10/18/23 04:00 10/18/23 04:00 10/18/23 04:00 10/18/23 04:00 10/18/23 06:46 Laboratory Results - last 24 hr 10/17/23 09:35: Hemoglobin A1c 7.0 H 10/17/23 09:39: WBC 11.3 H, RBC 4.91, Hgb 15.5, Hct 47.8, MCV 97.3 H, MCH 31.6 H, MCHC 32.5, RDW 13.8, Plt Count 211, MPV 10.1, Neut % (Auto) 78.8, Lymph % (Auto) 12.5, [place] % (Auto) 4.3, Eos % (Auto) 3.7, Baso % (Auto) 0.6, Neut # (Auto) 8.9 H, Lymph # (Auto) 1.4, [place] # (Auto) 0.5, Eos # (Auto) 0.4, Baso # (Auto) 0.1, Total Counted 100, Neutrophils % (Manual) 75, Lymphocytes % (Manual) 15, Monocytes % (Manual) 5, Eosinophils % (Manual) 5 H, Platelet Estimate Normal, RBC Morphology Normal, Sodium 136, Potassium 4.8, Chloride 105, Carbon Dioxide 18 L, Anion Gap 17.8 H, BUN 45 H, Creatinine 2.60 H, Estimated Creat Clear 27, Estimated GFR 24 L, Est GFR ( Amer) 30 L, Glucose 164 H, Lactate 1.7, Calcium 9.4, Total Bilirubin 0.7, AST 27, ALT 27, Alkaline Phosphatase 89, Total Protein 7.5, Albumin 4.3, Globulin 3.2, Albumin/Globulin Ratio 1.3 10/17/23 10:25: Urine Color Dark yellow, Urine Appearance Cloudy, Urine pH 5.0, Ur Specific [place] 1.025, Urine Protein 2+, Urine Glucose (UA) Negative, Urine Ketones Negative, Urine Blood 3+, Urine Nitrate Negative, Urine Bilirubin 1+ A, Urine Urobilinogen 1, Ur Leukocyte Esterase Negative 10/17/23 16:34: POC Glucose 126 H 10/17/23 20:09: POC Glucose 163 H 10/17/23 21:41: Urine Color Yellow, Urine Appearance Slightly cloudy, Urine pH 6.0, Ur Specific [place] 1.020, Urine Protein 1+, Urine Glucose (UA) Negative, Urine Ketones Negative, Urine Blood 2+, Urine Nitrate Negative, Urine Bilirubin Negative, Urine Urobilinogen 1.0, Ur Leukocyte Esterase Trace, Urine RBC 5-10, Urine WBC Occasional, Ur Squamous Epith Cells None, Urine Bacteria None 10/18/23 05:25: POC Glucose 106 I & O for Last 24 hours: Intake & Output 10/15/23 10/16/23 10/17/23 10/18/23 23:59 23:59 23:59 23:59 Intake Total 720 / 1120 1900 / 1900 Output Total 1200 / 1200 Balance 720 / 620 700 / 700 Weight 69.485 kg 70.851 kg Constitutional Constitutional: no acute distress and cooperative *Routine HEENT Exam Head: Present normocephalic Eye: Present EOMI and PERRL ENT: Present mucous membranes moist *Routine Neck Exam Neck: Absent lymphadenopathy *Routine Respiratory Exam Respiratory: Present rhonchi, normal respiratory effort and symmetric chest movement *Routine Cardiovascular Exam Cardiovascular: Present RRR *Routine Abdominal Exam Abdominal: Present soft; Absent tenderness *Routine Extremities Exam Extremities: Present full ROM and normal capillary refill; Absent edema *Routine Skin Exam Skin: Present warm; Absent rash *Routine Neurological Exam Neurological: Present alert, oriented X3, vision grossly intact, hearing grossly intact and normal speech; Absent sensory deficit or motor deficit Routine Psychiatric Exam Psychiatric: Present normal affect, normal thought process, cooperative, good insight and good judgment Assessment and Plan *Assessment and plan (1) RODGER (acute kidney injury): Status: Acute Category: Medical Code(s): N17.9 - Acute kidney failure, unspecified (2) Obstructive uropathy: Status: Acute Category: Medical Code(s): N13.9 - Obstructive and reflux uropathy, unspecified (3) BPH (benign prostatic hyperplasia): Status: Acute Qualifiers: Lower urinary tract symptom detail: incomplete bladder emptying Lower urinary tract symptom presence: symptoms present Qualified Code(s): N40.1 - Benign prostatic hyperplasia with lower urinary tract symptoms; R39.14 - Feeling of incomplete bladder emptying Category: Medical Code(s): N40.0 - Benign prostatic hyperplasia without lower urinary tract symptoms (4) Renal cyst: Status: Acute Category: Medical Code(s): N28.1 - Cyst of kidney, acquired (5) Diabetes mellitus: Status: Acute Category: Medical Code(s): E11.9 - Type 2 diabetes mellitus without complications (6) Hypothyroidism: Status: Acute Category: Medical Code(s): E03.9 - Hypothyroidism, unspecified Plan 73-year-old male with recent urology evaluation for elevated PSA, BPH and obstructive uropathy started on Bactrim with near completion of therapy presenting with weakness and general malaise to an urgent treatment center and care transition to local ED with identified RODGER. Problems addressed as follows RODGER Obstructive uropathy Benign prostatic hypertrophy Elevated PSA Renal cysts Telemetry monitoring IV fluid resuscitation Dual alpha-emi therapy Accurate I's and O's Trending electrolytes, magnesium and creatinine Previous CT abdomen and pelvis (2021) reviewedWith renal cysts noted Urine culture (09/16/2023) with Enterobacter cloacae with sensitivities reviewed Blood cultures no growth to date Antiemetic therapy Pain control Diabetes Routine blood sugar monitoring Hemoglobin A1c 7.0% Basal insulin therapy Sliding scale insulin therapy Carbohydrate controlled diet Hypothyroidism Levothyroxine replacement therapy VTE prophylaxis: Heparin CODE STATUS: Full code POA: Kristan- The patient is hospitalized day 2 with above diagnoses. Case management is assisting with discharge needs. Barriers to discharge currently include fluid resuscitation, urine output assessments and return of renal function to baseline (creatinine 0.9). Expected day of discharge over the next day or 2 pending objective laboratory evaluations.
[2023-10-18 07:44] VITALS: BP 132/85; PULSE 65; RESP 18; TEMP 36.4; O2SAT 98
[2023-10-18 08:31] LABS: Basophils # 0.1 K/mm3 (0-0.2); Basophils % 0.7 % (0.1-2.0); Eosinophils # 0.5 K/mm3 (0.0-0.4); Eosinophils % 4.7 % (0.1-12.0); Hemoglobin 14.5 g/dL (14.1-18.0); Lymphocytes # 1.2 K/mm3 (0.7-4.5); Lymphocytes % 12.4 % (10-50); Mean Corpuscular HGB Conc 32.9 g/dL (31.8-35.4); Mean Corpuscular Hemoglobin 31.9 pg (27.0-31.2); Mean Corpuscular Volume 96.7 fl (80-94); Mean Platelet Volume 9.2 fl (7.4-10.4); Monocytes # 0.4 K/mm3 (0.1-1.0); Monocytes % 3.7 % (1.7-9.3); Neutrophils # 7.7 K/mm3 (1.8-7.8); Neutrophils % 78.5 % (37.0-80.0); Platelet Count 197 K/mm3 (142-424); Red Blood Count 4.55 M/mm3 (4.60-6.20); Red Cell Distribution Width 13.7 % (11.5-17.5); White Blood Count 9.7 K/mm3 (4.8-10.8)
[2023-10-18] MEDS: HEPARIN SODIUM 5,000 UNIT/ML VIAL 5000 UNIT SQ ×2 (08:34→20:18)
[2023-10-18] MEDS: FINASTERIDE 5 MG 1 EACH PO (08:35)
[2023-10-18] MEDS: PANTOPRAZOLE 40MG TABLET 40 MG PO (08:35)
[2023-10-18] MEDS: PT OWN MED *ASPIRIN 81 MG EC TAB 1 EACH PO (08:35)
[2023-10-18 08:55] LABS: Anion Gap 13.6 mEq/L (5-15); Blood Urea Nitrogen 37 mg/dl (9-20); Calcium 8.9 mg/dl (8.4-10.2); Carbon Dioxide 19 mmol/L (22.0-30.0); Chloride 107 mmol/L (98-107); Creatinine Clearance Estimated 38 mL/min (50-200); Estimated Glomerular Filt Rate 37 ml/min (>60); GFR (African American) 45 ML/MIN (>60); Glucose 139 mg/dl (74-100); Magnesium 2.4 mg/dl (1.6-2.3); Potassium 4.6 mmoL/L (3.5-5.1); Sodium 135 mmol/L (136-145)
[2023-10-18 09:12] LABS: Procalcitonin 0.271 ng/mL (0.0-2.0)
[2023-10-18] MEDS: 0.9 % SODIUM CHLORIDE 1000ML 1,000 ML 100 ML IV (10:35)
[2023-10-18 10:47] LABS: POC Glucose,Bedside 141 (70-110)
[2023-10-18 12:00] VITALS: BP 127/77; PULSE 96; RESP 18; TEMP 36.6; O2SAT 96
--- NOTE | 2023-10-18 15:43 | PC.NURSE ---
pt has been tolerating room air again this shift. pt stil has campo attatched to leg bag. pt has had no complaints throughout shift. is currently at bedside. no new orders at this time.
[2023-10-18 16:00] VITALS: BP 101/69; PULSE 79; RESP 17; TEMP 36.5; O2SAT 97
[2023-10-18 16:59] LABS: POC Glucose,Bedside 192 (70-110)
[2023-10-18] MEDS: humaLOG 100 UNITS/ML 10ML VIAL (SSI) SQ (16:59)
[2023-10-18 19:56] VITALS: BP 119/74; PULSE 87; RESP 18; TEMP 36.6; O2SAT 99
[2023-10-18] MEDS: INSULIN GLARGINE 100 UNITS/ML 3ML FLEXPEN 10 UNIT SQ (20:18)
[2023-10-18] MEDS: PT OWN MED *TAMSULOSIN 0.4 MG CAP 1 EACH PO (20:19)
[2023-10-18 20:21] LABS: POC Glucose,Bedside 149 (70-110)
[2023-10-19] VITALS: BP 116/76; PULSE 89; RESP 18; TEMP 36.7; O2SAT 96
[2023-10-19] MEDS: 0.9 % SODIUM CHLORIDE 1000ML 1,000 ML 100 ML IV (00:21)
[2023-10-19 04:00] VITALS: BP 139/86; PULSE 86; RESP 18; TEMP 36.7; O2SAT 97; BMI 22.6
--- NOTE | 2023-10-19 05:09 | PC.NURSE ---
Patient is alert and oriented and has been on room air. Patient still has campo to leg bag that has had 1100 ml output so far this shift. He has not complained of any pain and has no requests at this time. Call light within reach.
[2023-10-19 05:53] LABS: POC Glucose,Bedside 107 (70-110)
[2023-10-19] MEDS: LEVOTHYROXINE 25 MCG 1 EACH PO (06:26)
[2023-10-19 06:50] LABS: Chloride 115 mmol/L (98-107); Potassium 4.3 mmoL/L (3.5-5.1); Sodium 135 mmol/L (136-145)
[2023-10-19 06:53] LABS: Anion Gap 7.3 mEq/L (5-15); Blood Urea Nitrogen 27 mg/dl (9-20); Calcium 8.1 mg/dl (8.4-10.2); Carbon Dioxide 17 mmol/L (22.0-30.0); Creatinine Clearance Estimated 44 mL/min (50-200); Estimated Glomerular Filt Rate 46 ml/min (>60); GFR (African American) 56 ML/MIN (>60); Glucose 109 mg/dl (74-100)
[2023-10-19 07:38] VITALS: BP 130/88; PULSE 88; RESP 18; TEMP 36.6; O2SAT 98
[2023-10-19] MEDS: FINASTERIDE 5 MG 1 EACH PO (08:24)
[2023-10-19] MEDS: PT OWN MED *ASPIRIN 81 MG EC TAB 1 EACH PO (08:24)
[2023-10-19] MEDS: HEPARIN SODIUM 5,000 UNIT/ML VIAL 5000 UNIT SQ (08:24)
[2023-10-19] MEDS: PANTOPRAZOLE 40MG TABLET 40 MG PO (08:25)
[2023-10-19 10:53] LABS: POC Glucose,Bedside 124 (70-110)
--- NOTE | 2023-10-19 11:12 | EXP.DC.SUM ---
General Admission date:: 10/17/23 Discharge date: 10/19/23 HPI HPI HPI: This is a 73-year-old male who presents to [facility] ED after being evaluated at a local urgent treatment center for weakness. At the [facility] a chemistry panel identified a creatinine of 2.6. He is accompanied by his Kristan. He reports a chronic history of benign prostatic hypertrophy with elevated PSA levels and recent urology evaluation. He was placed on Bactrim and has been taking the antibiotic with identified loss of energy, weakness and general malaise. He reports a chronic history of urinary hesitancy, urine retention and self cathing. His CBC identified WBC 11.3 with normal hemoglobin and platelet count. His lactic acid was negative. LFTs were normal and a recent PSA was 4.3 (September 2023). Currently he denies dysuria, gross hematuria or penile discharge. He reports no associated fever, chills, confusion or syncope. He does endorse lightheadedness. He reports no falls. Hospital Course Hospital Course Hospital Course: Patient admitted to hospital with weakness and diagnosed with RODGER. Patient started on maintenance IV fluids with Lopez catheter placed at time of hospital admission. Patient's creatinine trended downward on maintenance IV fluids and IV Lopez therapy. No signs of infection noted during hospitalization. Patient has appointment scheduled with urologist Dr. Trotter, for cystoscopy, procedure scheduled for 10/23/2023. Patient discharged from hospital instructions to follow-up with primary care physician and urologist on outpatient basis. Patient discharged home with Lopez catheter in place. Exam Data for Last 24 hours Vital signs and Labs for Last 24 Hours: Temp Pulse Resp BP Pulse Ox O2 Del Method 97.9 F 88 18 130/88 98 Room Air 10/19/23 07:38 10/19/23 07:38 10/19/23 07:38 10/19/23 07:38 10/19/23 07:38 10/19/23 10:48 Laboratory Results - last 24 hr 10/18/23 16:48: POC Glucose 192 H 10/18/23 20:14: POC Glucose 149 H 10/19/23 05:45: POC Glucose 107 10/19/23 06:22: Sodium 135 L, Potassium 4.3, Chloride 115 H, Carbon Dioxide 17 L, Anion Gap 7.3, BUN 27 H D, Creatinine 1.50 H, Estimated Creat Clear 44, Estimated GFR 46 L, Est GFR ( Amer) 56 L D, Glucose 109 H D, Calcium 8.1 L 10/19/23 10:45: POC Glucose 124 H I & O for Last 24 hours: Intake & Output 10/16/23 10/17/23 10/18/23 10/19/23 23:59 23:59 23:59 23:59 Intake Total 720 / 1120 3825 / 3825 2270 / 2270 Output Total 2000 / 2600 1400 / 1400 Balance 720 / 620 1825 / 1225 870 / 870 Weight 69.485 kg 70.851 kg 69.536 kg Microbiology Reports for the Last 24 Hours: Microbiology 10/17/23 09:35 Blood Blood Culture - Preliminary NO GROWTH AFTER 48 HOURS Constitutional Constitutional: no acute distress and cooperative *Routine HEENT Exam Head: Present normocephalic Eye: Present EOMI and normal accommodation ENT: Present mucous membranes moist *Routine Neck Exam Neck: Present supple and full ROM *Routine Respiratory Exam Respiratory: Present accessory muscle use and CTA bilaterally *Routine Cardiovascular Exam Cardiovascular: Present RRR, Normal S1 and Normal S2 *Routine Abdominal Exam Abdominal: Present soft and normoactive bowel sounds *Routine Extremities Exam Extremities: Present full ROM *Routine Skin Exam Skin: Present intact *Routine Neurological Exam Neurological: Present alert and oriented X3 Results Data Completed and Pending Labs on day of discharge: Labs from last 24 hours 10/19/23 10/19/23 10/19/23 10:45 06:22 05:45 Sodium 135 L Potassium 4.3 Chloride 115 H Carbon Dioxide 17 L Anion Gap 7.3 BUN 27 H D Creatinine 1.50 H Estimated Creat Clear 44 Estimated GFR 46 L Est GFR ( Amer) 56 L D Glucose 109 H D POC Glucose 124 H 107 Calcium 8.1 L 10/18/23 10/18/23 20:14 16:48 Sodium Potassium Chloride Carbon Dioxide Anion Gap BUN Creatinine Estimated Creat Clear Estimated GFR Est GFR ( Amer) Glucose POC Glucose 149 H 192 H Calcium Preliminary micro results at discharge 10/17/23 09:35 Blood Culture - Preliminary Blood NO GROWTH AFTER 48 HOURS DS: Diagnosis Discharge Diagnosis (1) RODGER (acute kidney injury): Status: Acute Code(s): N17.9 - Acute kidney failure, unspecified (2) Obstructive uropathy: Status: Acute Code(s): N13.9 - Obstructive and reflux uropathy, unspecified (3) BPH (benign prostatic hyperplasia): Status: Acute Code(s): N40.0 - Benign prostatic hyperplasia without lower urinary tract symptoms Qualifiers: Lower urinary tract symptom detail: incomplete bladder emptying Lower urinary tract symptom presence: symptoms present Qualified Code(s): N40.1 - Benign prostatic hyperplasia with lower urinary tract symptoms; R39.14 - Feeling of incomplete bladder emptying (4) Renal cyst: Status: Acute Code(s): N28.1 - Cyst of kidney, acquired (5) Diabetes mellitus: Status: Acute Code(s): E11.9 - Type 2 diabetes mellitus without complications (6) Hypothyroidism: Status: Acute Code(s): E03.9 - Hypothyroidism, unspecified Meds Home Medications and Allergies Home Medications Medication Instructions Recorded Confirmed Type aspirin 81 mg chewable tablet 81 mg PO DAILY 09/16/23 10/17/23 History finasteride 5 mg tablet 5 mg PO DAILY 10/17/23 10/17/23 History levothyroxine 25 mcg tablet 25 mcg PO DAILY 10/17/23 10/17/23 History metformin 500 mg tablet 500 mg PO BIDWMEAL 10/17/23 10/17/23 History tamsulosin 0.4 mg capsule 0.4 mg PO HS 10/17/23 10/17/23 History New Prescriptions to Start Prescriptions: Allergies Allergy/AdvReac Type Severity Reaction Status Date / Time No Known Drug Allergies Allergy Verified 10/12/23 12:16 Discharge Plan Disposition Patient Disposition: Home, Self-Care Condition: Good Follow up Plan Follow up with: Jose Brown DO [Primary Care Provider] - 10/26/23 9:45 am (after rodger hospital admission) Jose Martinez MD [Staff Physician] - Enter time for follow up (cystoscope monday 01/22 at 11:45.) Prescriptions/Medication Reconciliation: Continued aspirin 81 mg Tablet,Chewable 81 mg PO DAILY metformin 500 mg tablet 500 mg PO BIDWMEAL levothyroxine 25 mcg tablet 25 mcg PO DAILY tamsulosin 0.4 mg capsule 0.4 mg PO HS finasteride 5 mg tablet 5 mg PO DAILY Problem Reconciliation Problems Reviewed?: Yes Patient Discharge Instructions ACTIVITY: Continue current activity Patient Instructions: DI for Acute Kidney Injury, Catheter-Associated Urinary Tract Infection Print Language: Thai Providers Primary Care Provider: Jose Brown Admit Provider: Omar Belcher Attending Provider: Omar Belcher
[2023-10-19 11:59] VITALS: BP 122/85; PULSE 83; RESP 19; TEMP 36.6; O2SAT 95
--- NOTE | 2023-10-21 10:57 | CARE MANAGER ---
Spoke with patient via phone to discuss recent discharge. Patient stated that he is doing well, just continues to be weak. He is aware of scheduled f/u appts and voiced no concerns at time of call.
== END 2023-10-19 12:51 | disposition home or self-care (01) ==
LOC: UTC 10:49 → ER 11:04 → UTC 11:05 → ER 11:05 → 2ND 11:57
PROVIDERS: Nurse Practitioner Family; Admitting Provider Family Medicine; Emergency Provider Student in an Organized Health Care Education/Training Program; PCP Internal Medicine; Visit Provider Family Medicine
DX: N17.9 Acute kidney failure, unspecified (principal); N13.9 Obstructive and reflux uropathy, unspecified; N40.1 Benign prostatic hyperplasia with lower urinary tract symptoms; R39.14 Feeling of incomplete bladder emptying; N28.1 Cyst of kidney, acquired; E11.9 Type 2 diabetes mellitus without complications; E03.9 Hypothyroidism, unspecified
CPT/HCPCS: 36415; 80048; 80053; 81001; 81003; 82962; 83036; 83605; 83735; 84145; 85007; 85014; 85018; 85025; 85048; 85049; 87040; 99285; G0378; J1644; J2405; J7120

== ENCOUNTER 2023-10-23 10:41 | Day surgery (SDC) | payer MEDICARE, SELFPAY ==
[2023-10-21 13:24] VITALS: BMI 22.8
[2023-10-23 11:06] VITALS: BP 125/78; PULSE 107; RESP 18; TEMP 36.5; O2SAT 96
[2023-10-23 11:15] LABS: POC Glucose,Bedside 144 (70-110)
[2023-10-23] MEDS: 0.9 % SODIUM CHLORIDE 1000ML 1,000 ML 25 ML IV (12:00)
[2023-10-23 12:10] VITALS: BP 132/71; PULSE 92; RESP 18; TEMP 36.6; O2SAT 96
--- NOTE | 2023-11-02 08:22 | HMH.PROCNOTE ---
[facility] Procedure Note Date: 09/25/23 Time: 10:00 Procedure Note:: Chart review: The patient has a noted corrected PSA at 8.6 on 09/27. An MRI of the prostate has been ordered. He is diabetic. He was on a every 6 hour intermittent catheterization program but now comes in with an indwelling Lopez. Patient is on Proscar and Flomax. Preop diagnosis: Urinary retention Postop diagnosis: Urinary retention/obstructing prostate Operative note: The patient was brought to the cystoscopy suite. He was prepped and draped in the usual fashion after his Lopez catheter was removed. He underwent flexible cystoscopy. The anterior urethra is unremarkable. The posterior urethra is 5 cm in length and has by lobar prostatic obstruction grade 4. The patient urinary bladder as best can be seen is erythematous perhaps from the recent indwelling Lopez catheter. The patient's bladder is heavily trabeculated and I was not sure I could visualize the ureteral orifice. He is going to need prostate surgery consideration. The type of surgery depends on the PSA situation and if he does or does not have prostate cancer. The prostate surgery also will be dictated by the prostate volume.
== END 2023-10-23 12:40 | disposition home or self-care (01) ==
PROVIDERS: PCP Internal Medicine; Visit Provider Urology
PROC: 0TJB8ZZ Inspection of Bladder, Via Natural or Artificial Opening Endoscopic (ICD-10-PCS; CPT 52000; principal; 2023-10-23 11:45)
DX: R97.20 Elevated prostate specific antigen [PSA] (principal); N31.9 Neuromuscular dysfunction of bladder, unspecified; R33.9 Retention of urine, unspecified; N40.0 Benign prostatic hyperplasia without lower urinary tract symptoms; E11.8 Type 2 diabetes mellitus with unspecified complications; Z79.84 Long term (current) use of oral hypoglycemic drugs
CPT/HCPCS: 52000; 82962; 87086

== ENCOUNTER 2023-10-23 22:57 | Emergency (ER) | payer MEDICARE, SELFPAY ==
[2023-10-23 22:59] VITALS: BP 118/77; PULSE 87; RESP 20; TEMP 36.6; O2SAT 96; BMI 21.4
--- NOTE | 2023-10-23 23:14 | HMH.EDGENADL ---
Discharge Plan Disposition Patient Disposition: Home, Self-Care Prescriptions Prescriptions: No Action aspirin 81 mg Tablet,Chewable 81 mg PO DAILY metformin 500 mg tablet 500 mg PO BIDWMEAL levothyroxine 25 mcg tablet 25 mcg PO DAILY tamsulosin 0.4 mg capsule 0.4 mg PO HS finasteride 5 mg tablet 5 mg PO DAILY Referrals Follow up/Referrals: Jose Brown DO [Primary Care Provider] - See instructions Activity Restrictions/Add. Instructions Additional Instructions/Restrictions: Please follow-up with your urologist. Please return if you your urine output starts to decrease or you feel that the catheter is blocked out. Clinical Impressions Clinical Impression: Hematuria Qualifiers: Hematuria type: gross Qualified Code(s): R31.0 - Gross hematuria Instructions Patient Instructions: DI for Hematuria Discharge ED Provider: Luis Manuel Fermin General Adult HPI General Chief complaint: Urogenital-Male Stated complaint: Blood in F/C bag Time Seen by Provider: 10/23/23 23:14 History of Present Illness HPI narrative: 73-year-old male with history of obstructive uropathy presents with some blood in his catheter bag. He had a indwelling catheter for the last few days at least, had a catheter taken out and had a cystoscopy with our urologist earlier today, then had his catheter reinserted. After he went home he started noticing some darker redness in the bag as well as a small amount of blood around his urethral meatus. He is no longer on blood thinners but he previously was. He reports that he is still having good urine output and it has not decreased at all. He denies any abdominal pain. No recent fever or illness. Related Data Home Medications Medication Instructions Recorded Confirmed aspirin 81 mg chewable tablet 81 mg PO DAILY 09/16/23 10/23/23 finasteride 5 mg tablet 5 mg PO DAILY 10/17/23 10/23/23 levothyroxine 25 mcg tablet 25 mcg PO DAILY 10/17/23 10/23/23 metformin 500 mg tablet 500 mg PO BIDWMEAL 10/17/23 10/23/23 tamsulosin 0.4 mg capsule 0.4 mg PO HS 10/17/23 10/23/23 Allergies Allergy/AdvReac Type Severity Reaction Status Date / Time No Known Drug Allergies Allergy Verified 10/21/23 13:23 [facility] Disclaimer: The information contained in this section may have been updated after the patient was seen, as this information can be updated by other users. 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 (Updated 10/23/23 @ 23:21 by Luis Manuel Fermin MD) Cholelithiasis Hematuria UTI (urinary tract infection) Exposure to COVID-19 virus Leukocytosis Osteomyelitis of thoracic spine Discitis of thoracic region Pleuritic chest pain Thoracic back pain Patient left without being seen Encounter for Lopez catheter removal Malfunction of Lopez catheter Hematuria Abdominal pain Nausea Abdominal cramping Renal insufficiency Diabetes mellitus Acquired hypothyroidism DVT (deep venous thrombosis) Disorder of ligament, right ankle Ankle fracture, right UTI (urinary tract infection) Left lower quadrant pain Diverticulosis Degenerative joint disease of cervical spine Hypothyroidism Renal cyst BPH (benign prostatic hyperplasia) Diabetes mellitus, type 2 Abnormal PSA Surgical History Status post ORIF of fracture of ankle S/P cervical spinal fusion H/O colonoscopy S/P IVC filter History of tonsillectomy Family History Mother COPD (chronic obstructive pulmonary disease) Father Dementia Social History Smoking Status: Unknown if ever smoked years smoked: 40 smoking status stop date: 2013 second hand exposure: No alcohol intake: never substance use type: denies use current occupational status: retired Travel in the last 8 weeks: None household members: spouse housing: house lives independently: Yes marital status: number of children: 1 current occupational exposures/hazards: No caffeine: Yes ROS Obtained: Yes All systems reviewed & no additional complaints except as documented Physical Exam General General appearance: alert and in no apparent distress Head Head exam: atraumatic and normocephalic Eye Eye exam: Present normal appearance, PERRL and EOMI ENT ENT exam: Present normal oropharynx and normal external ear exam Neck Neck exam: Present normal inspection and full ROM Chest Chest inspection: Present normal inspection and symmetric chest wall rise; Absent tenderness Respiratory Respiratory exam: Present normal lung sounds bilaterally; Absent respiratory distress Cardiovascular Cardiovascular exam: Present regular rate and normal rhythm Abdominal Exam Abdominal exam: Present soft; Absent distention, tenderness or guarding Extremities Exam Extremities exam: Present normal inspection; Absent edema or joint swelling Back Exam Back exam: Present normal inspection; Absent tenderness Neurological Exam Neurological exam: Present alert and oriented X3; Absent motor sensory deficit Psychiatric Psychiatric exam: Present normal affect and normal mood Skin Skin exam: Present warm, dry and normal color Lymphatic Lymphatic Findings: no adenopathy Medical Decision Making Medical Records Medical records reviewed: Yes I reviewed the patient's medical records. Cuco Inquiry Pt receiving controlled substance: No Cuco was queried for this patient: No Vital Signs: 10/23/23 22:59 10/23/23 23:38 Temperature 97.9 F 97.9 F Temperature Source Oral Oral Pulse Rate 87 Pulse Rate [Left] 87 Respiratory Rate 20 20 Blood Pressure 118/77 Blood Pressure [Right Arm] 118/77 Blood Pressure Mean [Right Arm] 90 02 Sat by Pulse Oximetry 96 Oxygen Delivery Method Room Air Room Air Lab Data Lab results reviewed: Yes I reviewed the patient's lab results. Medical Decision Narrative: 73-year-old male with history of obstructive uropathy presents with a small amount of blood in his catheter bag and around his urethral meatus after he had a catheter exchange and cystoscopy today. Differential diagnosis includes but limited to hematuria, infection, obstruction. No evidence of blood clots or obstructive pathology related to the bleeding at this time. Urinalysis was considered but deemed to be of little clinical utility. Patient was given strict instructions regarding return precautions for obstruction related to bleeding. Patient discharged in stable condition. Procedures Risk/Benefits of Procedure(s) Were Explained: Yes Critical Care Critical Care Time Critical Care Time: No
[2023-10-23 23:38] VITALS: BP 118/77; PULSE 87; RESP 20; TEMP 36.6; O2SAT 96
== END 2023-10-23 23:40 | disposition home or self-care (01) ==
PROVIDERS: Emergency Provider Emergency Medicine; PCP Internal Medicine
DX: R31.0 Gross hematuria (principal); Z96.0 Presence of urogenital implants
CPT/HCPCS: 99282

== ENCOUNTER 2023-11-09 15:50 | Emergency (ER) | payer MEDICARE, SELFPAY ==
[2023-11-09 15:50] VITALS: BP 168/94; PULSE 66; RESP 17; TEMP 36.8; O2SAT 97; BMI 23.8
--- NOTE | 2023-11-09 16:32 | PC.NURSE ---
Spoke with vascular regarding patient needing a doppler
--- NOTE | 2023-11-09 16:39 | CA_ITS ---
FINAL REPORT TECHNIQUE: Color Doppler, duplex Doppler and compression sonography of the right lower extremity venous system was performed. CLINICAL HISTORY: swelling in right lower leg, hx of clots, edema x 2 weeks, DM, patient has history of right LE DVT post fracture repair 02/26/21, not currently on blood thinners, recent cystoscope. Denies trauma. COMPARISON: None FINDINGS: There is visualized thrombus in the common femoral, femoral, and popliteal veins. There is visualized superficial thrombus in the proximal greater saphenous vein at the junction. IMPRESSION: Positive visible thrombus right lower extremity as described above. Reviewed, Interpreted and Dictated by Farrukh Garduno III, MD Transcribed by Fozia James Authenticated and [facility]
[2023-11-09 16:52] LABS: Basophils # 0.1 K/mm3 (0-0.2); Eosinophils # 0.1 K/mm3 (0.0-0.4); Eosinophils % 0.9 % (0.1-12.0); Lymphocytes # 2.1 K/mm3 (0.7-4.5); Lymphocytes % 25.4 % (10-50); Mean Corpuscular HGB Conc 31.6 g/dL (31.8-35.4); Mean Corpuscular Hemoglobin 31.3 pg (27.0-31.2); Mean Corpuscular Volume 99.1 fl (80-94); Mean Platelet Volume 8.2 fl (7.4-10.4); Monocytes # 0.4 K/mm3 (0.1-1.0); Monocytes % 4.9 % (1.7-9.3); Neutrophils # 5.7 K/mm3 (1.8-7.8); Neutrophils % 67.9 % (37.0-80.0); Platelet Count 329 K/mm3 (142-424); Red Blood Count 4.14 M/mm3 (4.60-6.20); Red Cell Distribution Width 14.5 % (11.5-17.5); White Blood Count 8.4 K/mm3 (4.8-10.8)
--- NOTE | 2023-11-09 16:53 | PC.NURSE ---
pt taken via wheel chair to doppler lab
[2023-11-09 17:04] LABS: Activated Partial Thrombo Time 25.8 seconds (22.8-30.6); INR 0.94 (0.9-1.1); Prothrombin Time 10.6 seconds (10.1-12.5)
[2023-11-09 17:14] LABS: Alanine Aminotransferase 21 U/L (12-78); Albumin Level 4.2 g/dl (3.5-5.0); Albumin/Globulin Ratio 1.3 (1.1-1.8); Alkaline Phosphatase 71 U/L (38-126); Anion Gap 11.4 mEq/L (5-15); Aspartate Amino Transferase 29 U/L (17-59); Bilirubin,Total 0.5 mg/dl (0.2-1.3); Blood Urea Nitrogen 17 mg/dl (9-20); Calcium 9.5 mg/dl (8.4-10.2); Carbon Dioxide 25 mmol/L (22.0-30.0); Chloride 108 mmol/L (98-107); Creatinine Clearance Estimated 47 mL/min (50-200); Estimated Glomerular Filt Rate 46 ml/min (>60); GFR (African American) 56 ML/MIN (>60); Globulin 3.2 g/dL (1.3-3.2); Glucose 135 mg/dl (74-100); Potassium 4.4 mmoL/L (3.5-5.1); Sodium 140 mmol/L (136-145); Total Protein,Serum 7.4 g/dl (6.3-8.2)
--- NOTE | 2023-11-09 17:39 | HMH.EDGENADL ---
Discharge Plan Disposition Patient Disposition: Home, Self-Care Prescriptions Prescriptions: New Eliquis 5 mg tablet 5 mg PO BID 90 Days Qty: 190 0RF Rx Instructions: please take 10 mg BID for 7 days followed by 5 mg BID for a total of 3 months No Action finasteride 5 mg tablet 5 mg PO DAILY 90 Days Qty: 90 1RF tamsulosin 0.4 mg capsule 0.4 mg PO HS 90 Days Qty: 90 1RF aspirin 81 mg Tablet,Chewable 81 mg PO DAILY metformin 500 mg tablet 500 mg PO BIDWMEAL levothyroxine 25 mcg tablet 25 mcg PO DAILY Referrals Follow up/Referrals: Jose Brown DO [Primary Care Provider] - See instructions Activity Restrictions/Add. Instructions Additional Instructions/Restrictions: Please follow-up with your primary care doctor and discuss a follow-up with vascular surgery for downstream management regarding this specifically with your IVC filter that you had placed for unclear reasons. Return with any significant shortness of breath chest pain etc. Clinical Impressions Clinical Impression: Acute deep vein thrombosis (DVT) of right lower extremity Print Language Print Language: German Discharge ED Provider: Dinorah Flaherty General Adult HPI General Chief complaint: Extremity Injury, Lower Stated complaint: Sent by Dr. Brown ?blood clots in legs Time Seen by Provider: 11/09/23 17:14 Mode of Arrival: Ambulatory Source of Information: Patient Limitations: No Limitations Description of Symptoms (Recalled from ER Triage Doc. by RN): pt to the ED from dr. fina berman for DVT ruke out. pt reports swelling in his right lower leg x 2 weeks without relief. pt reports a history of a blood clot in the affected leg a few years after an ankle fracture. History of Present Illness HPI narrative: Patient is a 73-year-old male sent in by his primary care doctor today for concern for DVT. Patient states that 5 to 6 years ago he had an IVC filter placed for unclear reasons states that he was told that there was a concern for a clot in his left lower extremity but that there was never a clot that was found he states this was placed by Dr. Rodríguez does not have any other history regarding this and is very unsure as to why this was placed initially. Several years later he had a lower extremity fracture and had a subsequent DVT where he was on anticoagulation for 1 year. He has been off of that for several years now. Over the last several weeks has had lower extremity swelling and went to his primary care doctor they sent him to the emergency department for evaluation and workup for DVT. Related Data Home Medications ?Medication ?Instructions ?Recorded ?Confirmed aspirin 81 mg chewable tablet 81 mg PO DAILY 09/16/23 11/09/23 levothyroxine 25 mcg tablet 25 mcg PO DAILY 10/17/23 11/09/23 metformin 500 mg tablet 500 mg PO BIDWMEAL 10/17/23 11/09/23 Previous Rx's ?Medication ?Instructions ?Recorded finasteride 5 mg tablet 5 mg PO DAILY 90 days #90 tabs 10/26/23 tamsulosin 0.4 mg capsule 0.4 mg PO HS 90 days #90 caps 10/26/23 apixaban 5 mg tablet (Eliquis) 5 mg PO BID 90 days #190 tabs 11/09/23 Allergies Allergy/AdvReac Type Severity Reaction Status Date / Time No Known Drug Allergies Allergy Verified 11/09/23 15:04 [facility] Disclaimer: The information contained in this section may have been updated after the patient was seen, as this information can be updated by other users. 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 Pleuritic chest pain Thoracic back pain Patient left without being seen Encounter for Lopez catheter removal Malfunction of Lopez catheter Hematuria Abdominal pain Nausea Abdominal cramping Renal insufficiency Acquired hypothyroidism DVT (deep venous thrombosis) Disorder of ligament, right ankle Ankle fracture, right UTI (urinary tract infection) Left lower quadrant pain Diverticulosis Degenerative joint disease of cervical spine Hypothyroidism Renal cyst BPH (benign prostatic hyperplasia) Diabetes mellitus, type 2 Abnormal PSA Surgical History Status post ORIF of fracture of ankle S/P cervical spinal fusion H/O colonoscopy S/P IVC filter History of tonsillectomy Family History Mother COPD (chronic obstructive pulmonary disease) Father Dementia Social History Smoking Status: Never smoker years smoked: 40 smoking status stop date: 2013 second hand exposure: No alcohol intake: never substance use type: denies use current occupational status: retired Travel in the last 8 weeks: None household members: spouse housing: house lives independently: Yes marital status: number of children: 1 current occupational exposures/hazards: No caffeine: Yes ROS Obtained: Yes All systems reviewed & no additional complaints except as documented Physical Exam General General appearance: alert Respiratory Respiratory exam: Present normal lung sounds bilaterally Cardiovascular Cardiovascular exam: Present regular rate Extremities Exam Extremities exam: Present other (Right lower extremity edema and swelling asymmetric and out of proportion to the left pulses normal motor exam is normal) Neurological Exam Neurological exam: Present alert and oriented X3 Medical Decision Making Cuco Inquiry Pt receiving controlled substance: No Vital Signs: 11/09/23 15:50 Temperature 98.3 F Temperature Source Oral Pulse Rate [Left Radial] 66 Respiratory Rate 17 Blood Pressure [Right Arm] 168/94 H Blood Pressure Mean [Right Arm] 118 Blood Pressure Source [Right Arm] Automatic Cuff Blood Pressure Position [Right Arm] Sitting 02 Sat by Pulse Oximetry 97 Lab Data Lab results reviewed: Yes I reviewed the patient's lab results. Lab Results 11/09/23 16:44: WBC 8.4, RBC 4.14 L, Hgb 13.0 L, Hct 41.0 L, MCV 99.1 H, MCH 31.3 H, MCHC 31.6 L, RDW 14.5, Plt Count 329, MPV 8.2, Neut % (Auto) 67.9, Lymph % (Auto) 25.4, Wood % (Auto) 4.9, Eos % (Auto) 0.9, Baso % (Auto) 1.0, Neut # (Auto) 5.7, Lymph # (Auto) 2.1, Wood # (Auto) 0.4, Eos # (Auto) 0.1, Baso # (Auto) 0.1, PT 10.6, INR 0.94, APTT 25.8, Sodium 140, Potassium 4.4, Chloride 108 H, Carbon Dioxide 25, Anion Gap 11.4, BUN 17, Creatinine 1.50 H, Estimated Creat Clear 47, Estimated GFR 46 L, Est GFR ( Amer) 56 L, Glucose 135 H, Calcium 9.5, Total Bilirubin 0.5, AST 29, ALT 21, Alkaline Phosphatase 71, Total Protein 7.4, Albumin 4.2, Globulin 3.2, Albumin/Globulin Ratio 1.3 11/09/23 16:44 11/09/23 16:44 Orders (Tests/Meds): ORDERS Category Date Time Status CMP [Comprehensive Metabolic Panel] Stat Lab 11/09/23 16:44 Completed Complete Blood Count Auto Diff Stat Lab 11/09/23 16:44 Completed PT/PTT Stat Lab 11/09/23 16:44 Completed Prothrombin Time INR Stat Lab 11/09/23 16:44 Completed CA venous doppler LE RT Stat Y 11/09/23 16:39 Completed Medical Decision Narrative: 73-year-old male presenting today with above history and physical. DVT ultrasound was placed and he does have a proximal DVT extending from his common femoral vein down to the popliteal area on the right. Again from historical standpoint unclear as to whether or not he has had numerous DVTs or as failed anticoagulation in the past while he has an IVC filter and he is unsure as to this history as well. I advised that he follow-up with his primary care doctor regarding a discussion long-term about his IVC filter. He has noted chest pain or shortness of breath or any symptoms suggestive of pulmonary embolism. He does not have any evidence of any type of superimposed compression of his arterial system. He does not appear from history standpoint to be high risk for bleeding he is not on other anticoagulants or other antiplatelets other than aspirin. Eliquis has been initiated he will follow-up with his primary care doctor as needed return precautions emphasized. Critical Care Critical Care Time Critical Care Time: No
[2023-11-09 17:54] VITALS: BP 157/90; PULSE 73; RESP 16; TEMP 36.8
== END 2023-11-09 17:56 | disposition home or self-care (01) ==
PROVIDERS: Emergency Provider Student in an Organized Health Care Education/Training Program; PCP Internal Medicine
DX: I82.411 Acute embolism and thrombosis of right femoral vein (principal); E11.9 Type 2 diabetes mellitus without complications; E03.9 Hypothyroidism, unspecified; Z79.84 Long term (current) use of oral hypoglycemic drugs; I82.811 Embolism and thrombosis of superficial veins of right lower extremity; R22.41 Localized swelling, mass and lump, right lower limb; Z86.718 Personal history of other venous thrombosis and embolism; Z79.01 Long term (current) use of anticoagulants; Z95.828 Presence of other vascular implants and grafts
CPT/HCPCS: 80053; 85025; 85610; 85730; 93971; 99284

== ENCOUNTER 2023-12-14 09:56 | Outpatient (CLI) | payer MEDICARE, SELFPAY ==
[2023-12-14 18:54] LABS: Microalbumin > 190.000 mg/L (0-16.7); Microalbumin/Creatinine Ratio 218.3
[2023-12-14 19:11] LABS: Creatinine,Urine Random 87 mg/dL (Not Estab.)
[2023-12-14 20:28] LABS: 25-OH Vitamin D, Total 65.7 ng/mL (30-100)
[2023-12-14 20:42] LABS: Thyroid Stimulating Hormone 1.92 uIU/mL (0.465-4.68)
== END 2023-12-14 23:59 | disposition home or self-care (01) ==
LOC: LAB.DROPOF 12-15 09:57
PROVIDERS: PCP Internal Medicine; Visit Provider Internal Medicine
DX: E03.9 Hypothyroidism, unspecified (principal); E55.9 Vitamin D deficiency, unspecified; R73.03 Prediabetes
CPT/HCPCS: 82043; 82306; 82570; 84443

== ENCOUNTER 2024-03-11 13:34 | Emergency (ER) | payer MEDICARE, SELFPAY ==
[2024-03-11 13:55] VITALS: BP 155/103; PULSE 88; RESP 18; TEMP 36.6; O2SAT 96; BMI 24.9
--- NOTE | 2024-03-11 13:58 | EXP.UTC ---
Discharge Plan Disposition Patient Disposition: Home, Self-Care Condition: Good Prescriptions Prescriptions: New ciprofloxacin HCl [Cipro] 500 mg tablet 500 mg PO BID 10 Days Qty: 20 0RF No Action metformin 500 mg tablet 1,000 mg PO BIDWMEAL 90 Days Qty: 360 4RF cholecalciferol (vitamin D3) 125 mcg (5,000 unit) capsule 125 mcg PO DAILY Qty: 30 3RF finasteride 5 mg tablet 5 mg PO DAILY 90 Days Qty: 90 1RF tamsulosin 0.4 mg capsule 0.4 mg PO HS 90 Days Qty: 90 1RF levothyroxine 25 mcg tablet See Rx Instructions .ROUTE .COMPLEX Qty: 90 0RF Dose Instruction: Take 1 tablet by mouth once daily Rx Instructions: Take 1 tablet by mouth once daily Eliquis 5 mg tablet 5 mg PO BID 90 Days Qty: 180 0RF Referrals Follow up/Referrals: Jose Brown DO [Primary Care Provider] - See instructions Activity Restrictions/Add. Instructions Additional Instructions/Restrictions: Drink plenty of fluids. Take tylenol or ibuprofen for pain or fever. Take the medications as directed. Follow up with your regular doctor. GO TO THE ER FOR ANY WORSENING SYMPTOMS Don't start the antibiotics until after you've collected the urine sample. Please bring the urine sample back to the hospital so it can be analyzed and cultured. We will culture the urine. That will tell what bacteria is causing your infection and which antibiotics will treat it best.This test takes 3 days to complete. Clinical Impressions Clinical Impression: UTI (urinary tract infection) Instructions Patient Instructions: DI for Urinary Tract Infection (UTI) Print Language Print Language: [place] Discharge ED Provider: Robert Cifuentes [facility] [place] General Stated complaint: Pain and frequent urination Mode of Arrival: Ambulatory Source of Information: Patient Time Seen by Provider: 03/11/24 13:56 Description of Symptoms (Recalled from Triage Doc. by RN): ? UTI HEENT Symptoms (Recalled from RN notes): No Resp Symptoms (Recalled from RN notes): No Skin Symptoms (Recalled from RN notes): No MS Symptoms (Recalled from RN notes): No Functional Status (Recalled from RN notes): WNL History of Present Illness Provider Complaint: He states that he has to self cath himself to urinate. He usually does this 4 times per day. This morning when he did it he noted some pus in his urine. He has had issues with uti's in the past and he states that he is getting one now. He denies any fever/chills/malaise. Related Data Previous Rx's ?Medication ?Instructions ?Recorded finasteride 5 mg tablet 5 mg PO DAILY 90 days #90 tabs 10/26/23 tamsulosin 0.4 mg capsule 0.4 mg PO HS 90 days #90 caps 10/26/23 metformin 500 mg tablet 1,000 mg (2 x 500 mg) PO BIDWMEAL 11/10/23 90 days #360 tabs cholecalciferol (vitamin D3) 125 125 mcg PO DAILY #30 caps 11/18/23 mcg (5,000 unit) capsule levothyroxine 25 mcg tablet See Rx Instructions .Route 01/05/24 .COMPLEX #90 tabs apixaban 5 mg tablet (Eliquis) 5 mg PO BID 90 days #180 tabs 02/18/24 ciprofloxacin HCl 500 mg tablet 500 mg PO BID 10 days #20 tabs 03/11/24 (Cipro) Allergies Allergy/AdvReac Type Severity Reaction Status Date / Time No Known Drug Allergies Allergy Verified 02/15/24 14:39 Worker's Comp Is this a Worker's Comp case?: No [facility] Disclaimer: The information contained in this section may have been updated after the patient was seen, as this information can be updated by other users. 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 Pleuritic chest pain Thoracic back pain Patient left without being seen Encounter for Lopez catheter removal Malfunction of Lopez catheter Hematuria Abdominal pain Nausea Abdominal cramping Renal insufficiency Acquired hypothyroidism DVT (deep venous thrombosis) Disorder of ligament, right ankle Ankle fracture, right UTI (urinary tract infection) Left lower quadrant pain Diverticulosis Degenerative joint disease of cervical spine Hypothyroidism Renal cyst BPH (benign prostatic hyperplasia) Diabetes mellitus, type 2 Abnormal PSA Surgical History Status post ORIF of fracture of ankle S/P cervical spinal fusion H/O colonoscopy S/P IVC filter History of tonsillectomy Family History Mother COPD (chronic obstructive pulmonary disease) Father Dementia Social History Smoking Status: Never smoker years smoked: 40 smoking status stop date: 2013 second hand exposure: No alcohol intake: never substance use type: denies use current occupational status: retired Travel in the last 8 weeks: None household members: spouse housing: house lives independently: Yes marital status: number of children: 1 current occupational exposures/hazards: No caffeine: Yes ROS Obtained: Yes All systems reviewed & no additional complaints except as documented Constitutional Constitutional: Reports system reviewed and no additional complaints, except as documented, Denies chills and Denies fever(s) Eyes Eyes: Denies eye discharge ENT Ears, Nose, Mouth, and Throat: Denies dysphagia, Denies sore throat and Denies throat swelling Cardiovascular Cardiovascular: Denies chest pain and Denies dyspnea Respiratory Respiratory: Denies chest congestion, Denies cough and Denies dyspnea Gastrointestinal Gastrointestingal: Denies abdominal pain, constipation, diarrhea, dysphagia, nausea or vomiting Genitourinary Male Genitourinary: Reports as per HPI Musculoskeletal Musculoskeletal: Denies arthralgias and Reports back pain Integumentary/Breasts Skin/Breast: Denies rash Neurologic Neurologic: Denies paresthesias Allergic/Immunologic Allergic/Immunologic: Denies throat swelling Physical Exam General General appearance: alert and in no apparent distress Head Head exam: atraumatic, normocephalic and normal inspection Eye Eye exam: Present normal appearance, PERRL and EOMI ENT ENT exam: Present normal exam, normal oropharynx, mucous membranes moist, TM's normal bilaterally and normal external ear exam Neck Neck exam: Present normal inspection, full ROM and trachea midline; Absent meningismus or lymphadenopathy Chest Chest inspection: Present normal inspection and symmetric chest wall rise; Absent tenderness Respiratory Respiratory exam: Present normal lung sounds bilaterally; Absent respiratory distress Cardiovascular Cardiovascular exam: Present regular rate and normal rhythm; Absent JVD Abdominal Exam Abdominal exam: Present soft and normal bowel sounds; Absent distention, tenderness or guarding Extremities Exam Extremities exam: Present normal inspection, full ROM and normal capillary refill; Absent calf tenderness Back Exam Back exam: Present normal inspection and full ROM; Absent tenderness, CVA tenderness (R) or CVA tenderness (L) Neurological Exam Neurological exam: Present alert and oriented X3 Psychiatric Psychiatric exam: Present normal affect and normal mood Skin Skin exam: Present warm, dry, intact and normal color Lymphatic Lymphatic Findings: no adenopathy Medical Decision Making Medical Records Medical records reviewed: No I reviewed the patient's medical records. Screening: Per USPSTF and CDC recommendations, given the prevalence of disease in our region, it is our hospital?s policy to screen for HIV and viral Hepatitis for all patients aged 18 and over and those with ongoing risk factors. Cuco Inquiry Pt receiving controlled substance: No Vital Signs: 03/11/24 13:55 Temperature 97.8 F Temperature Source Oral Pulse Rate [Left Radial] 88 Respiratory Rate 18 Blood Pressure [Left Arm] 155/103 H Blood Pressure Mean [Left Arm] 120 02 Sat by Pulse Oximetry 96 Medical Decision Narrative: He was unable to give us a urine sample because he had just catherized himself right before coming in. The supplies for him to collect a sterile urine sample and return it here were given to him. He was instructed to collect the urine and return it before starting the ciprofloxacin.
[2024-03-11 14:55] VITALS: BP 155/103; PULSE 88; RESP 18; TEMP 36.6
== END 2024-03-11 14:56 | disposition home or self-care (01) ==
PROVIDERS: Emergency Provider Nurse Practitioner Family; PCP Internal Medicine
DX: N39.0 Urinary tract infection, site not specified (principal)
CPT/HCPCS: 99213; G0381

== ENCOUNTER 2024-03-12 08:36 | Outpatient (CLI) | payer MEDICARE, SELFPAY ==
[2024-03-12 08:42] LABS: Microscopic, Urine URINE MICROSCOPIC (MICROSCOPIC)
[2024-03-12 09:25] LABS: Appearance,Urine CLEAR (Clear); Bilirubin,Urine Negative (Negative); Blood, Urine 2+ (Negative); Color,Urine YELLOW (Yellow); Glucose,Urine (UA) Negative (Negative); Ketones,Urine Negative (Negative); Leukocyte Esterase,Urine 2+ (Negative); Nitrate,Urine Negative (Negative); Protein,Urine 2+ (Negative); Urobilinogen,Urine 0.2 EU/dl (0.2)
[2024-03-12 10:17] LABS: WBC,Urine 50-100 #/hpf (0-3)
[2024-03-12 10:18] LABS: Bacteria,Urine 4+ /lpf
== END 2024-03-12 23:59 | disposition home or self-care (01) ==
PROVIDERS: PCP Internal Medicine; Visit Provider Nurse Practitioner Family
DX: N39.0 Urinary tract infection, site not specified (principal); R30.0 Dysuria; R82.90 Unspecified abnormal findings in urine
CPT/HCPCS: 81001; 87086; 87088; 87186

== ENCOUNTER 2024-04-12 12:42 | Emergency (ER) | payer MEDICARE, SELFPAY ==
--- NOTE | 2024-04-12 13:02 | EXP.UTC ---
Discharge Plan Disposition Patient Disposition: Home, Self-Care Condition: Good Prescriptions Prescriptions: New ciprofloxacin HCl [Cipro] 500 mg tablet 500 mg PO BID 7 Days Qty: 14 1RF No Action cholecalciferol (vitamin D3) 125 mcg (5,000 unit) capsule 125 mcg PO DAILY Qty: 30 3RF finasteride 5 mg tablet 5 mg PO DAILY 90 Days Qty: 90 1RF tamsulosin 0.4 mg capsule 0.4 mg PO HS 90 Days Qty: 90 1RF levothyroxine 25 mcg tablet See Rx Instructions .ROUTE .COMPLEX Qty: 90 0RF Dose Instruction: Take 1 tablet by mouth once daily Rx Instructions: Take 1 tablet by mouth once daily Eliquis 5 mg tablet 5 mg PO BID 90 Days Qty: 180 0RF metformin 500 mg tablet See Rx Instructions .ROUTE .COMPLEX Qty: 180 0RF Dose Instruction: Take 1 tablet by mouth twice daily Rx Instructions: Take 1 tablet by mouth twice daily ciprofloxacin HCl [Cipro] 500 mg tablet 500 mg PO BID 10 Days Qty: 20 0RF Referrals Follow up/Referrals: Jose Brown DO [Primary Care Provider] - See instructions Activity Restrictions/Add. Instructions Additional Instructions/Restrictions: Take tylenol for pain or fever. Take the medications as directed. Follow up with your regular doctor. GO TO THE ER FOR ANY WORSENING SYMPTOMS We will culture the urine. That will tell what bacteria is causing your infection and which antibiotics will treat it best.This test takes 3 days to complete. Please follow up to go over the culture results and to possibly adjust your antibiotics. Clinical Impressions Clinical Impression: Acute UTI Instructions Patient Instructions: Urine Culture, DI for Urinary Tract Infection (UTI), Ceftriaxone Injection, Ciprofloxacin Print Language Print Language: Kiswahili Discharge ED Provider: Robert Cifuentes [facility] General Stated complaint: possible UTI Time Seen by Provider: 04/12/24 13:02 History of Present Illness Provider Complaint: He states that he has a history of having to straight cath himself for urination. Since yesterday his urine has been very cloudy and had a foul odor. He states that when that happens he has a uti and needs to be treated for it. He denies any fever/chills/back pain. Related Data Previous Rx's ?Medication ?Instructions ?Recorded finasteride 5 mg tablet 5 mg PO DAILY 90 days #90 tabs 10/26/23 tamsulosin 0.4 mg capsule 0.4 mg PO HS 90 days #90 caps 10/26/23 cholecalciferol (vitamin D3) 125 125 mcg PO DAILY #30 caps 11/18/23 mcg (5,000 unit) capsule levothyroxine 25 mcg tablet See Rx Instructions .Route 01/05/24 .COMPLEX #90 tabs apixaban 5 mg tablet (Eliquis) 5 mg PO BID 90 days #180 tabs 02/18/24 ciprofloxacin HCl 500 mg tablet 500 mg PO BID 10 days #20 tabs 03/11/24 (Cipro) metformin 500 mg tablet See Rx Instructions .Route 03/28/24 .COMPLEX #180 tabs ciprofloxacin HCl 500 mg tablet 500 mg PO BID 7 days #14 tabs 04/12/24 (Cipro) Allergies Allergy/AdvReac Type Severity Reaction Status Date / Time No Known Drug Allergies Allergy Verified 02/15/24 14:39 [facility] Disclaimer: The information contained in this section may have been updated after the patient was seen, as this information can be updated by other users. 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 Pleuritic chest pain Thoracic back pain Patient left without being seen Encounter for Lopez catheter removal Malfunction of Lopez catheter Hematuria Abdominal pain Nausea Abdominal cramping Renal insufficiency Acquired hypothyroidism DVT (deep venous thrombosis) Disorder of ligament, right ankle Ankle fracture, right UTI (urinary tract infection) Left lower quadrant pain Diverticulosis Degenerative joint disease of cervical spine Hypothyroidism Renal cyst BPH (benign prostatic hyperplasia) Diabetes mellitus, type 2 Abnormal PSA Surgical History Status post ORIF of fracture of ankle S/P cervical spinal fusion H/O colonoscopy S/P IVC filter History of tonsillectomy Family History Mother COPD (chronic obstructive pulmonary disease) Father Dementia Social History Smoking Status: Never smoker years smoked: 40 smoking status stop date: 2013 second hand exposure: No alcohol intake: never substance use type: denies use current occupational status: retired Travel in the last 8 weeks: None household members: spouse housing: house lives independently: Yes marital status: number of children: 1 current occupational exposures/hazards: No caffeine: Yes Have you lived/traveled outside [place] in past 30 days?: No Contact w/someone who lives/traveled outside [place] past 30 days?: No Exposure to someone with infectious disease in past 14 days?: No Do you have a fever (greater than 100.4 F or 38 C)?: No Have you tested positive for COVID-19: No Exposed to someone with COVID-19 in past 14 days?: No Do you have a sore throat?: No Do you have a cough?: No Do you have any weakness?: No Do you have any diarrhea?: No Are you experiencing any unusual bleeding?: No Do you have any muscle aches/pain?: No Do you have any abdominal pain?: No Are you experiencing loss of taste or smell?: No ROS Obtained: Yes All systems reviewed & no additional complaints except as documented Constitutional Constitutional: Denies chills and Denies fever(s) Eyes Eyes: Denies eye discharge ENT Ears, Nose, Mouth, and Throat: Denies dizziness, Denies otalgia and Denies sore throat Cardiovascular Cardiovascular: Denies chest pain Respiratory Respiratory: Denies shortness of breath, Denies chest congestion, Denies cough, Denies stridor and Denies wheezing Gastrointestinal Gastrointestingal: Denies nausea or vomiting Genitourinary Male Genitourinary: Reports as per HPI and Reports difficulty urinating Musculoskeletal Musculoskeletal: Reports system reviewed and no additional complaints, except as documented, Denies arthralgias and Denies back pain Integumentary/Breasts Skin/Breast: Denies rash Neurologic Neurologic: Denies dizziness and Denies paresthesias Allergic/Immunologic Allergic/Immunologic: Denies wheezing Physical Exam General General appearance: alert and in no apparent distress Head Head exam: atraumatic, normocephalic and normal inspection Eye Eye exam: Present normal appearance, PERRL and EOMI ENT ENT exam: Present normal exam, normal oropharynx, mucous membranes moist, TM's normal bilaterally and normal external ear exam Neck Neck exam: Present normal inspection, full ROM and trachea midline; Absent meningismus or lymphadenopathy Chest Chest inspection: Present normal inspection and symmetric chest wall rise; Absent tenderness Respiratory Respiratory exam: Present normal lung sounds bilaterally; Absent respiratory distress Cardiovascular Cardiovascular exam: Present regular rate and normal rhythm; Absent JVD Abdominal Exam Abdominal exam: Present soft and normal bowel sounds; Absent distention, tenderness or guarding Extremities Exam Extremities exam: Present normal inspection, full ROM and normal capillary refill; Absent calf tenderness Back Exam Back exam: Present normal inspection; Absent tenderness Neurological Exam Neurological exam: Present alert and oriented X3 Psychiatric Psychiatric exam: Present normal affect and normal mood Skin Skin exam: Present warm, dry, intact and normal color Lymphatic Lymphatic Findings: no adenopathy Medical Decision Making Medical Records Medical records reviewed: No I reviewed the patient's medical records. Screening: Per USPSTF and CDC recommendations, given the prevalence of disease in our region, it is our hospital?s policy to screen for HIV and viral Hepatitis for all patients aged 18 and over and those with ongoing risk factors. Cuco Inquiry Pt receiving controlled substance: No Lab Data Lab results reviewed: Yes I reviewed the patient's lab results.
[2024-04-12 13:03] VITALS: BP 153/90; PULSE 86; RESP 18; TEMP 36.8; O2SAT 95; BMI 24.0
[2024-04-12 13:25] LABS: Apearance,Urine Cloudy (Clear); Bilirubin,Urine Negative (Negative); Blood, Urine 3+ (Negative); Color,Urine Yellow (Yellow); Glucose,Urine (UA) Negative (Negative); Ketones,Urine Negative (Negative); PH,Urine 5.5 (5.0-8.5); Protein,Urine 3+ (Negative); UTC Leukocyte Esterase,Urine 3+ (Negative); UTC Nitrate,Urine Negative (Negative); Urobilinogen,Urine 0.2 EU/dl (0.2)
[2024-04-12] MEDS: LIDOCAINE 1% 5ML PF VIAL IM (13:50)
[2024-04-12] MEDS: cefTRIAXone 1GM VIAL 1 GM IM (13:50)
[2024-04-12 13:59] VITALS: BP 153/90; PULSE 86; RESP 18; TEMP 36.8
--- NOTE | 2024-04-14 10:08 | PC.NURSE ---
URINE CULTURE REVIEWED WITH Deondre MORTON APRN, NO CHANGES NEEDED AT THIS TIME
== END 2024-04-12 14:06 | disposition home or self-care (01) ==
PROVIDERS: Emergency Provider Nurse Practitioner Family; PCP Internal Medicine
DX: N39.0 Urinary tract infection, site not specified (principal); R39.198 Other difficulties with micturition
CPT/HCPCS: 81003; 87086; 87088; 87186; 99212; G0381; J0696

== ENCOUNTER 2024-05-11 08:58 | Outpatient (CLI) | payer MEDICARE, SELFPAY ==
[2024-05-11 18:44] LABS: Hemoglobin A1C 6.7 % (4.0-6.0)
[2024-05-11 19:22] LABS: Albumin Level 5.5 g/dl (3.5-5.0); Chloride 107 mmol/L (98-107); Sodium 144 mmol/L (136-145)
[2024-05-11 19:24] LABS: Blood Urea Nitrogen 27 mg/dl (9-20); Estimated Glomerular Filt Rate 43 ml/min (>60); GFR (African American) 52 ML/MIN (>60)
[2024-05-11 19:25] LABS: Alanine Aminotransferase 23 U/L (12-78); Albumin/Globulin Ratio 2.8 (1.1-1.8); Alkaline Phosphatase 74 U/L (38-126); Aspartate Amino Transferase 25 U/L (17-59); Bilirubin,Total 0.3 mg/dl (0.2-1.3); Calcium 10.7 mg/dl (8.4-10.2); Carbon Dioxide 24 mmol/L (22.0-30.0); Glucose 123 mg/dl (74-100); Total Protein,Serum 7.5 g/dl (6.3-8.2)
[2024-05-11 19:29] LABS: Creatinine,Urine Random 67 mg/dL (Not Estab.)
[2024-05-11 19:44] LABS: 25-OH Vitamin D, Total 115 ng/mL (30-100)
[2024-05-11 19:55] LABS: Thyroid Stimulating Hormone 2.57 uIU/mL (0.465-4.68)
[2024-05-11 22:15] LABS: Microalbumin/Creatinine Ratio 1556.2
== END 2024-05-11 23:59 | disposition home or self-care (01) ==
LOC: LAB.DROPOF 05-13 08:58
PROVIDERS: PCP Internal Medicine; Visit Provider Internal Medicine
DX: E11.9 Type 2 diabetes mellitus without complications (principal); E55.9 Vitamin D deficiency, unspecified; E03.9 Hypothyroidism, unspecified; N39.0 Urinary tract infection, site not specified; Z95.828 Presence of other vascular implants and grafts; I82.511 Chronic embolism and thrombosis of right femoral vein; N18.31 Chronic kidney disease, stage 3a; N40.1 Benign prostatic hyperplasia with lower urinary tract symptoms; R39.14 Feeling of incomplete bladder emptying; L98.9 Disorder of the skin and subcutaneous tissue, unspecified
CPT/HCPCS: 80053; 82043; 82306; 82570; 83036; 84443

== ENCOUNTER 2024-06-19 14:00 | Outpatient (CLI) | payer MEDICARE, SELFPAY | END 2024-06-19 23:59 | disposition home or self-care (01) | LOC: LAB.DROPOF 07-07 12:41 | PROVIDERS: PCP Nurse Practitioner; Visit Provider Nurse Practitioner | DX: R35.0 Frequency of micturition (principal) | CPT/HCPCS: 87086 ==

== ENCOUNTER 2024-06-27 11:51 | Outpatient (CLI) | payer MEDICARE, SELFPAY ==
[2024-06-27 20:28] LABS: Albumin Level 4.6 g/dl (3.5-5.0); Chloride 99 mmol/L (98-107); Sodium 135 mmol/L (136-145)
[2024-06-27 20:29] LABS: Potassium 4.5 mmoL/L (3.5-5.1)
[2024-06-27 20:31] LABS: Alanine Aminotransferase 16 U/L (12-78); Anion Gap 9.5 mEq/L (5-15); Aspartate Amino Transferase 29 U/L (17-59); Bilirubin,Total 0.4 mg/dl (0.2-1.3); Blood Urea Nitrogen 10 mg/dl (9-20); Carbon Dioxide 31 mmol/L (22.0-30.0); Estimated Glomerular Filt Rate 111 ml/min (>60); GFR (African American) 135 ML/MIN (>60)
[2024-06-27 20:32] LABS: Albumin/Globulin Ratio 1.8 (1.1-1.8); Alkaline Phosphatase 151 U/L (38-126); Calcium 9.7 mg/dl (8.4-10.2); Globulin 2.6 g/dL (1.3-3.2); Glucose 95 mg/dl (74-100); Total Protein,Serum 7.2 g/dl (6.3-8.2)
== END 2024-06-27 23:59 | disposition home or self-care (01) ==
LOC: LAB.DROPOF 06-28 14:24
PROVIDERS: PCP Family Medicine; Visit Provider Family Medicine
DX: N39.0 Urinary tract infection, site not specified (principal); N39.9 Disorder of urinary system, unspecified
CPT/HCPCS: 80053; 87086; 87186

== ENCOUNTER 2024-09-12 11:33 | Outpatient (CLI) | payer MEDICARE, SELFPAY ==
--- OUTSIDE RECORDS SUMMARY | 2024-08-31 10:45 | XMS_ITS | Encounter Summary ---
Author Organization [facility] Address [address] [place] [address] Care Team Providers Care Feeder Operator Name Role Phone Guzman Rodríguez MD Primary Care Provider [phone] Reason for Visit * Reason Comments Follow-up The patient was note d to have an elevated blood pressure reading of (143/87). This was rechecked after 5 minutes and still found to be elevated with a reading of (.../...). The provider was notified and the patient was advised to follow-up with their primary care provider for further advice. Encounter Details Date Type Department Care Team ([facility] st Contact Info) Description 08/31/2024 10:45 AM EDT Office Visit Medical Office Building Urology [address] [facility], [address] [place] [address] Qi Prasad MD [address] [facility] [address] [place] [address] Elevated PSA (Primary Dx); Urinary retention Social History Tobacco Use Types Packs/Day Years Used Date Smoking Tobacco: Former Cigarettes 0.5 20.9 S tarted: 11/02/2003 Smokeless Tobacco: Never Alcohol Use Standard Drinks/Week Comments Not Currently 1 (1 standard drink = 0.6 oz pur e alcohol) PHQ-2 Answer Date Recorded Patient Health Questionnaire-2 Score 1 08/31/2024 PHQ-9 Answer Date Recorded Patient Health Questionnaire-9 Score 1 08/31/2024 Sex and Gender Information Value Date Recorded Sex Assigned at Not on file Legal Sex Male 6:47 PM EDT Gender Identity Not on file Sexual Orientation Not on file documented as of this encounter Last Filed Vital Signs Vital Sign Reading Time Taken Comments Blood Pressure 144/87 08/31/2024 10:58 AM EDT Pulse 74 08/31/2024 10:58 AM EDT Temperature 36.7 C (98.1 F) 08/31/2024 10:58 AM EDT Respiratory Rate - - Oxygen Saturation 100% 08/31/2024 10:58 AM EDT Inhaled Oxygen Concentration - - Weight 72 kg (158 lb 11.7 oz) 08/31/2024 10:58 A M EDT Height 175.3 cm (5' 9 ) 08/31/2024 10:58 AM EDT Body Mass Index 23.44 08/31/2024 10:58 AM EDT documented in this encounter Functional Status * Over the past 2 weeks, how often have you been bothered by any of the following problems? Question Answer Date of Assessment Author Little interest or pleasure in doing things Several days 08/31/2024 10:59 AM Guzman Garcia Feeling down, depressed, or hopeless Not at all 08/31/2024 10:59 AM Guzman Garcia Patient Health Questionnaire -2 Score 1 08/31/2024 10:59 AM Guzman Garcia * Question Answer Date of Assessment Author Trouble falling or staying asleep, or sleeping too much Not at all 08/31/2024 10:59 AM Guzman Garcia Feeling tired or having reji le energy Not at all 08/31/2024 10:59 AM Guzman Garcia Poor appetite or overeating Not at all 08/31/2024 10 :59 AM Guzman Garcia Feeling bad about yourself - or that you are a failure or have let yourself or your family down Not at all 08/31/2024 10:59 AM Guzman Villa Trouble concentrating on thi ngs, such as reading the newspaper or watching television Not at all 08/31/2024 10:59 AM Guzman Garcia Moving or speaking so slowly that other people could have noticed? Or the opposite - being so fidgety or restless that you have been moving around a lot more than usual. Not at all 08/31/2024 10:59 AM Guzman Garcia Thoughts that you would be b rosalind off or hurting yourself in some way Not at all 08/31/2024 10:59 AM Guzman Garcia Patient Health Questionnaire -9 Score 1 08/31/2024 10:59 AM Guzman Garcia * If you checked off any problems on this questionnaire so far, Question Answer Date of Assessment Author How difficult have these problems made it for you to do your work, take care of things at home, or get along with other people? Not difficult at all 08/31/2024 10:59 AM Guzman Garcia documented as of this encounter Miscellaneous Notes * Progress Notes - Petr Kim MD - 08/31/2024 10:45 AM EDT [facility] Note 08/31/24 CC: BPH, urinary retention HPI: Gil Paz is a 73 y.o. 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 He has been performing CIC4x/day since 10/2023 and states he is tired of doing this. He is also taking Flomax and Finasteride. He was initially seen by Carmelina Pascal given elevated PSA, reported up to ~8. Repeat PSA in 01/2024 was down to 1.74. mpMRI in 12/2023 also performed noting an overall PIRADS 3 with a 89 gram gland. He states he is able to void small volumes (4-8 oz) in between catheterizations. He notes 1x/month he has cloudy urine and gets treated for UTI; denies any other systemic symptoms with these episodes. He denies hematuria. He denies prior surgery. He is unsure if he is able to come off his Eliquis. Past 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: 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[1] Past Surgical History: Surgical History[2] Family History: Family History[3] Social History: Social History[4] Outpatient Medications: Current Outpatient Medications Medication Instructions Eliquis 5 MG tablet TAKE TWO TABLETS BY MOUTH TWICE DAILY FOR 7 DAYS followed by taking 1 tablet byMOUTH twice daily FOR 3 MONTHS as directed finasteride (PROSCAR) 5 mg, Oral, Daily levothyroxine (SYNTHROID, LEVOXYL) 25 mcg, Daily metFORMIN (GLUCOPHAGE) 500 mg, 2 times daily tamsulosin (FLOMAX) 0.4 mg, Oral, Daily Physical Exam: Vitals: 08/31/24 1058 BP: (!) 144/87 Pulse: 74 Temp: 36.7 ??C (98.1 ??F) SpO2: 100% GEN: NAD HEENT: NCAT, EOMI RESP: Equal bilateral chest rise, normal work of breathing CV: Regular rate, appears well perfused ABD: Nondistended : Circumcised penis, bilateral testicles equal in size in dependent scrotum EXT: No gross deformities MSK: Full ROM in BL UE NEURO: No focal deficits, alert and oriented PSYCH: Normal mood and affect Labs: PSA 01/18/24: 1.74 Imaging: Mp MRI 12/26/23: IMPRESSION: Overall PI-RADS category: 3 Lesion 1: Small nodule in the right paramedian posterior transition zone at the base meets criteriafor PI-RADS 3. No adenopathy. No suspicious bony lesions. Assessment: Gil Paz is a 73 y.o. M with hx of elevated PSA with PIRADS 3 on mpMRI from 12/2023 and 89 gram gland. He is now in complete urinary retention requiring CIC 4x/day. He is also on Eliquis for hx of DVTs. We discussed bladder outlet procedures today in detail including TURP, Greenlight PVP, and HoLEP. Discussed given his blood thinner use and prior history of bleeding issues, would recommend Greenlight vs HoLEP. He ultimately elected to proceed with Greenlight PVP. Plan: - Schedule for Greenlight PVP with Dr. Prasad - Urine culture to be obtained 2 weeks prior locally Petr Kim MD PGY-2 Urology [1] Past 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: Diagnosis Date Abnormal magnetic resonance imaging of neck Pain in leg, unspecified Leg pain Pain in unspecified knee Knee pain Personal history of other diseases of the nervous system and sense organs History of peripheral neuropathy [2] Past Surgical History: Procedure Laterality Date ANKLE SURGERY CERVICAL FUSION N/A Cervical Vertebral Fusion from [facility] LITHOTOMY N/A Lithotomy from [facility] RETINAL DETACHMENT SURGERY N/A Repair Of Retinal Detachment from [facility] SPINE SURGERY [3] Family History Problem Relation Name Age of Onset Other cancer Mother [4] Social History Tobacco Use Smoking status: Former Current packs/day: 0.50 Average packs/day: 0.5 packs/day for 20.8 years (10.4 ttl pk-yrs) Types: Cigarettes Start date: 11/02/2003 Smokeless tobacco: Never Vaping Use Vaping status: Never Used Substance Use Topics Alcohol use: Not Currently Alcohol/week: 1.0 standard drink of alcohol Types: 1 Shots of liquor per week Drug use: Never Cosigned by Qi Prasad MD at 08/31/2024 12:38 PM EDT Associated attestation - Qi Prasad MD - 08/31/2024 12:38 PM EDT I saw and evaluated the patient with the resident/fellow. I discussed the case with the resident/fellow and agree with the findings and plan as documented. We discussed the options for the management of BPH/LUTS including medical therapy and/or surgical therapy. Surgical therapies discussed included Rezum, laser photovaporization of the prostate (Greenlight), transurethral resection of the prostate (TURP), simple prostatectomy, and holmium laser enucleation of the prostate (HoLEP). He elected for PVP documented in this encounter Plan of Treatment Upcoming Encounters Date Type Department Care Team (Latest Contact Info) Description 09/30/2024 12:40 PM EDT Hospital Encounter [facility] [address] [place] [id number] Qi Prasad MD [address] [place] [address] 09/30/2024 12:40 PM EDT Anesthesia Event [facility] [address] [place] [phone] Dale Mccord APRN [address] [place] [address] 09/30/2024 12:40 PM EDT - 09/30/2024 3:00 PM EDT Surgery [facility] [address] [place] [address] Qi Prasad MD [address] [address] TURP, USING SALINE PLASMA VAPORIZATION TECHNIQUE,GREENLIGHT LASER [[id number] (CPT )] 10/26/2024 3:30 PM EDT Office Visit Medical Office Building Urology [address] [facility], [address] [place] [address] Qi Prasad MD [address] [address] Scheduled Procedures Name Priority Associated Diagnoses Date/Ti me TURP, USING SALINE PLASMA VAPORIZATION TECHNIQUE Elevated PSA 09/30/2024 12:40 PM EDT documented as of this encounter Procedures Procedure Name Priority Date/Time Associated Diagnosis Comments POC US BLADDER SCAN FOR VOLUME Routine 08/31/2024 11:02 AM EDT Elevated PSA documented in this encounter Results * (ABNORMAL) Urine Culture - Lab Collect (09/07/2024 12:33 PM EDT) Culture >=100,000 CFU/mL Staphylococcus coagulase negative(A) 09/08/2024 12:45 PM EDT [facility] Urine Urine specimen obtained by clean catch procedure / Unknown Non-blood Collection / Unknown 09/07/2024 12:33 PM EDT 09/07/2024 12:33 PM EDT us iQ Prasad MD LAB MICROBIOLOGY - GENERAL O RDERABLES Final Result [facility] [address] [place] [address] * POC US Bladder Volume (08/31/2024 11:02 AM EDT) Urine, Volume 153 mL IMAGING Anatomical Region Laterality Modality Other us Qi Prasad MD IMG POINT OF CARE ULTRASOUND Final Result documented in this encounter Visit Diagnoses Diagnosis Elevated PSA- Primary Elevated prostate specific antigen (PSA) Urinary retention Unspecified retention of urine Elevated PSA Elevated prostate specific antigen (PSA) documented in this encounter Additional Health Concerns Assessment Noted Time PHQ-9 Depression Total Score: 1 09/01/19 25 10:59 AM EDT A fall risk assessment has been complete d for the patient 08/31/2024 10:59 AM EDT A Body Mass Index follow-up plan has been documented for the patient 08/31/2024 12:38 PM EDT documented as of this encounter Care Teams Feeder Operator Relationship Specialty Start Date End Date Guzman Rodríguez MD [address] [place] [address] PCP - General 08/17/20 documented as of this encounter
--- OUTSIDE RECORDS SUMMARY | 2024-09-07 09:30 | XMS_ITS | Encounter Summary ---
Author Organization [facility] Address [address] [place] [address] Care Team Providers Care Concrete Stone Fabricator Name Role Phone Guzman Rodríguez MD Primary Care Provider [phone] Encounter Details Date Type Department Care Team (Late st Contact Info) Description 09/07/2024 9:30 AM EDT Pre-[facility] Testing [facility] [address] [place] [id number] Anesthesia Record Procedure Summary Procedure Name Responsible Anesthesiologist Anesthesia Start Time Anesthesia Stop Time TURP, USING SALINE PLASMA VAPORIZATION TECHNIQUE,GREENLIGHT LASER Events No events on file. Meds * Agents No agents on file. * Blood No blood administrations on file. Lines, Drains, and Airways No LDAs on file. documented in this encounter Social History Tobacco Use Types Packs/Day Years Used Date Smoking Tobacco: Former Cigarettes 0.5 20.9 S tarted: 11/02/2003 Smokeless Tobacco: Never Tobacco Cessation:Counseling Given: Not Answered Comments:Quit about 2018 Alcohol Use Standard Drinks/Week Comments Not Currently [...] Sign Reading Time Taken Comments Blood Pressure - - Pulse - - Temperature - - Respiratory Rate - - Oxygen Saturation - - Inhaled Oxygen Concentration - - Weight 72.6 kg (160 lb) 09/07/2024 9:58 AM EDT Height - - Body Mass Index 23.63 08/31/2024 10:58 AM EDT documented in this encounter Miscellaneous Notes * PAT Evaluation Note - Flex Dalerosangela Summers APRN - 09/07/2024 9:30 AM EDT Images from the original note were not included. HPI Gil Paz is a 73 y.o. male who presents with Pre-op Diagnosis * Elevated PSA [R97.20] now scheduled for TURP, USING SALINE PLASMA VAPORIZATION TECHNIQUE,GREENLIGHT LASER (N/A) with Qi Prasad MD on 09/30/2024 in [facility] Past 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[1] Family History[2] Social History[3] SURGICAL HISTORY: Surgical History[4] Allergies[5] MEDICATIONS: Current Medications[6] ROS Anesthesia: Date of last anesthetic: ~5 years for MRI with sedation history of previous anesthesia, history of anesthetic complications and PONV. Does not have malignant hyperthermia and obstructive sleep apnea. Cardiovascular: Does not have angina, atrial fibrillation, CAD, CHF, dyspnea, dysrhythmias, hyperlipidemia, murmur,pacemaker, past MO or syncope. hypertension (borderline- not on medications): is well controlled. Exercise tolerance is 2 flights of stairs. Does not have chest pain. Cardio additional comments: Can lay flat. No active cardiac complaints. . Respiratory: Does not have home oxygen. Patient has no dyspnea.no asthma: no COPD: Has not had an upper respiratory infection in last 30 days. Has not had bronchitis in the last 30 days, pneumonia in the last 30 days, RSV in the last 30 days or COVID in the last 30 days. HEENT: chipped teeth.Does not have difficulty swallowing, loose teeth or missing teeth.Does not have hearing loss. Neurological: no seizures: Did not have a cerebrovascular accident.Does not have TIA. Neuro additional comments: +peripheral neuropathy Musculoskeletal: Does not have cervical spine limited mobility. Integumentary: Negative skin ROS. Gastrointestinal: Does not have GERD.Does not have cirrhosis or hepatitis. Genitourinary: Does not have chronic renal disease.BPH (with urinary retention). Does not have renal disease. Hematological/Lymphatic: History of DVT (h/o recurrent DVT on eliqius with IVC filter. unprovoked per patient. patient reports last DVT ~4 years ago). Received anticoagulation therapy. History of no pulmonary embolism. Not in a hypercoagulable state. no history of chemotherapy no history of radiation Does not have HIV, MRSA or tuberculosis. Endocrine/Metabolic: diabetes mellitus type 2.well controlled. unsure of hgb a1c and does not check blood sugars in the AM thyroid disorder (hypothryoidism). No results found for: HGBA1C Lab Results Component Value Date INR 1.0 06/18/2016 09/07/2024 9:58 AM Vitals Weight (kg) 72.576 kg BMI 23.63 kg/m2 BSA (m2) 1.88 m2 EKG 08/21/21 NSR Physical Exam Anesthesia Plan ASA 3 Anesthesia technique(s) discussed with the patient/family: general Comment: GHISLAINE Phone screen. Discussed with Dr. Mane. He spoke to surgeon and it was decided to hold patients eliquis for 2 days prior to procedure. I contacted his PCP office, Melissa Valle APRN. Spoke with nurse and she spoke with Dr. Cobb regarding the eliquis. RN is going to talk to Melissa Sosa see if they are going to bridge patient. Update: I spoke with the office of Melissa Valle APRN and they are going to bridge patient with lovenox prior to procedure. They are going to notify patient with instructions. I attempted to call patient to let them know that he will be hearing from their office with instructions. Notified Dr. Prasadof this. Dale Mccord APRN [1] Past 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: Diagnosis Date Abnormal magnetic resonance imaging of neck Clotting disorder (CMS/HCC) recurrent DVT Pain in leg, unspecified Leg pain Pain in unspecified knee Knee pain Personal history of other diseases of the nervous system and sense organs History of peripheral neuropathy PONV (postoperative nausea and vomiting) [2] Family History Problem Relation Name Age of Onset Other cancer Mother Anesthesia problems Neg Hx Malig Hyperthermia Neg Hx [3] Social History Tobacco Use Smoking status: Former Current packs/day: 0.50 Average packs/day: 0.5 packs/day for 20.8 years (10.4 ttl pk-yrs) Types: Cigarettes Start date: 11/02/2003 Smokeless tobacco: Never Tobacco comments: Quit about 2017 Vaping Use Vaping status: Never Used Substance Use Topics Alcohol use: Not Currently Alcohol/week: 1.0 standard drink of alcohol Types: 1 Shots of liquor per week Drug use: Never [4] Past Surgical History: Procedure Laterality Date ANKLE SURGERY CERVICAL FUSION N/A Cervical Vertebral Fusion from [facility] LITHOTOMY N/A Lithotomy from [facility] RETINAL DETACHMENT SURGERY N/A Repair Of Retinal Detachment from [facility] SPINE SURGERY [5] No Known Allergies [6] Current Outpatient Medications: Eliquis, TAKE TWO TABLETS BY MOUTH TWICE DAILY FOR 7 DAYS followed by taking 1 tablet by MOUTH twice daily FOR 3 MONTHS as directed finasteride, Take 1 tablet (5 mg) by mouth 1 (one) time each day. levothyroxine, Take 1 tablet by mouth daily. metFORMIN, Take 1 tablet by mouth 2 times a day. tamsulosin, Take 1 capsule (0.4 mg) by mouth 1 (one) time each day. * Preprocedure Instructions - Dale Mccord APRN - 09/07/2024 9:30 AM EDT Home Medication Instructions Current Medications Medication Instructions Eliquis 5 MG tablet Follow instructions given by PCP office for lovenox bridge finasteride (Proscar) 5 MG tablet Take morning of surgery levothyroxine (Synthroid, Levoxyl) 25 MCG tablet Take morning of surgery metFORMIN (Glucophage) 500 MG tablet Hold 48 hours before surgery tamsulosin (Flomax) 0.4 MG 24 hr capsule Take morning of surgery General Preoperative Instructions You will be called the business day before surgery with your arrival time No food after midnight the night before surgery. You can drink clear liquids up to 2 hours prior to arrival. Please do not try to get all your hydration in 2 hours prior to arrival. Start the day before surgery drinking more than you usually would.After midnight, you can have clear liquids only (water, apple juice, Gatorade) up to 2 hours prior to arrival. No coffee or tea. No alcohol or smoking prior to surgery Arrive on time to avoid delays Parking/Registration procedure explained You MUST have a responsible adult available for transport to and from hospital Visitation policy for the day of surgery reviewed Bring insurance card, photo ID, along with power of trademark attorney, guardianship or advanced directives if applicable Do not bring money, jewelry or other valuables Hibiclens bathing instructions reviewed if applicable Notify surgeon of fever, illness, any changes or if you decide not to have surgery documented in this encounter Plan of Treatment Upcoming Encounters Date Type Department Care Team (Latest Contact Info) Description 09/30/2024 12:40 PM EDT Hospital Encounter [facility] [address] [place] [id number] Qi Prasad MD [address] [place] [address] 09/30/2024 12:40 PM EDT Anesthesia Event [facility] [address] [place] [address] Dale Mccord APRN [address] [place] [address] 09/30/2024 12:40 PM EDT - 09/30/2024 3:00 PM EDT Surgery [facility] [address] [place] [address] Qi Prasad MD [address] [place] [address] TURP, USING SALINE PLASMA VAPORIZATION TECHNIQUE,GREENLIGHT LASER [[id number] (CPT )] 10/26/2024 3:30 PM EDT Office Visit Medical Office Building Urology [address] [facility], [address] [place] [id number] Qi Prasad MD [address] [place] [address] Scheduled Procedures Name Priority Associated Diagnoses Date/Ti me TURP, USING SALINE PLASMA VAPORIZATION TECHNIQUE Elevated PSA 09/30/2024 12:40 PM EDT documented as of this encounter Goals Goal Patient Goal Type Associated Problems Recent Progress Patient-Stated? Author Autogenerat ed Goal Care Plan Autogenerated Problem No Tahira Olsen documented as of this encounter Visit Diagnoses Not on filedocumented in this encounter Additional Health Concerns Active Problems Noted Date Diagnosed Date Autogenerated Problem 09/06/2024 Assessment Noted Time PHQ-9 Depression Total Score: 1 09/01/19 25 10:59 AM EDT A fall risk assessment has been complete d for the patient 08/31/2024 10:59 AM EDT A Body Mass Index follow-up plan has been documented for the patient 08/31/2024 12:38 PM EDT documented as of this encounter Care Teams Concrete Stone Fabricator Relationship Specialty Start Date End Date Guzman Rodríguez MD [address] [place] [address] PCP - General 08/17/20 documented as of this encounter
--- OUTSIDE RECORDS SUMMARY | 2024-09-13 15:18 | XMS_ITS | Clinical Summary ---
Author Organization ISRA CARLTONJESSIE OD Address [facility] [place] [address] Phone Care Team Providers Care Sausage Linker Name Role Phone Unavailable Primary Care Provider Unavailabl e Allergies No known active allergies Medications rivaroxaban (XARELTO) 20 mg Oral TabletIndicatio ns:deep venous thrombosis Take by mouth nightly. With meal Indications: blood clot in a deep vein of the extremities Active metFORMIN (GLUCOPHAGE) 500 mg Oral TabletIndicatio ns:type 2 diabetes mellitus Take 500 mg by mouth 2 times daily (with meals). Indications: type 2 diabetes mellitus Active finasteride (PROSCAR) 5 mg Oral Tablet Take 5 mg by mouth daily. Active tamsulosin (FLOMAX) 0.4 mg Oral Capsule Take 0.4 mg by mouth daily. Active LEVOthyroxine (SYNTHROID) 25 mcg Oral Tablet Take by mouth daily. Active tiZANidine (ZANAFLEX) 4 mg Oral Tablet Take by mouth 3 times daily as needed for Muscle spasms. Active Active Problems Problem Noted Date Diagnosed Date Hypothyroidism, unspecified 08/10/2021 Benign prostatic hyperplasia with lower urinary tract symptoms 08/10/2021 Deep vein thrombosis (DVT) 08/10/2021 Type 2 diabetes mellitus wit hout complication, without long-term current use of insulin 08/10/2021 History of recurrent deep vein thrombosis (DVT) 08/10/2021 Osteomyelitis of thoracic spine 08/09/2021 Back wound Urinary retention Immunizations Immunization Administration Dates Next Due Influenza Patient Reported 01/06/2020,02/12/2017 Pneumococcal Conjugate Vaccine 13 Valent 018 Pneumococcal Polysaccharide 23 Valent 02/25/2019 Surgical History Surgery Date Site/Laterality Comments FOOT SURGERY KIDNEY SURGERY EYE SURGERY NECK SURGERY CT GUIDED NEEDLE PLACEMENT 08/14/2021 CT GUIDED NEEDLE PLACEMENT 08/14/[address] BEDSIDE PICC INSERTION (PICC TEAM RN) 08/14/2021 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 Date Comments Prostate disorder Urinary tract infection Thyroid disease Diabetes mellitus (HCC) Depression Post-operative nausea and vomiting Deep vein thrombosis (DVT) (HCC) Kidney stones Social History Tobacco Use Types Packs/Day Years Used Date Smoking Tobacco: Former Cigarettes 0.5 40 Smokeless Tobacco: Never Alcohol Use Standard Drinks/Week Comments Never 0 (1 standard drink = 0.6 oz pur e alcohol) Overall Financial Resource Strain (CARDIA) Answe r Date Recorded How hard is it for you to pa y for the very basics like food, housing, medical care, and heating? Not hard at all 08/12/2021 Hunger Vital Sign Answer Date Recorded Within the past 12 months, y ou worried that your food would run out before you got the money to buy more. Never true 08/13/19 22 Within the past 12 months, t he food you bought just didn't last and you didn't have money to get more. Never true 08/12/2021 PRAPARE - Transportation Answer Date Re corded In the past 12 months, has l ack of transportation kept you from medical appointments or from getting medications? No 12/2021 In the past 12 months, has l ack of transportation kept you from meetings, work, or from getting things needed for daily living? No 08/12/2021 Sex and Gender Information Value Date Recorded Sex Assigned at Not on file Legal Sex Male 11:23 AM EDT Gender Identity Not on file Sexual Orientation Not on file Obstetrics History Last Filed Vital Signs Vital Sign Reading Time Taken Comments Blood Pressure 138/91 08/21/2021 2:24 PM EDT Pulse 60 08/21/2021 11:53 AM EDT Temperature 36.9 C (98.4 F) 08/21/2021 11:53 AM EDT Respiratory Rate 16 08/21/2021 11:53 AM EDT Oxygen Saturation 97% 08/21/2021 11:53 AM EDT Inhaled Oxygen Concentration - - Weight 62.6 kg (138 lb) 08/13/2021 7:57 AM EDT Height 175.3 cm (5' 9 ) 08/13/2021 7:57 AM EDT Body Mass Index 20.38 08/13/2021 7:57 AM EDT Plan of Treatment Health Maintenance Due Date Last Done Comments Wellness Exam Medicare 09/23/1953 Lipids 1962 Diabetic Eye Exam 1970 Hepatitis C Screening 1970 DTaP/TDaP/Td (1 - Tdap) 09/23/1971 Cologuard 1997 Colon Cancer Screening 1997 Colonoscopy 1997 FIT 1997 Sigmoidoscopy 1997 Virtual Colonography 1997 Zoster (1 of 2) 2002 Hemoglobin A1c 02/10/2022 08/10/2021, 08/09/2021 Microalbuminuria 08/10/2022 08/10/2021 COVID-19 Vaccine (2023-2 5 season) 2023 Influenza Vaccine (Season Ended) 2024 01/06/2020, 01/06/2020, 02/25/2019, Additional history exists Pneumococcal Vaccine 50+ Completed 019, 01/22/2018, 07/19/2015 Hepatitis B Vaccine Aged Out No longe r eligible based on patient's age to complete this topic Meningococcal B Vaccine Aged Out No l onger eligible based on patient's age to complete this topic Procedures Procedure Name Priority Date/Time Associated Diagnosis Comments MICROALBUMIN/CREATIN INE RATIO URINE Routine 08/10/2021 8:17 AM EDT HEMOGLOBIN A1C Routine 08/10/2021 6:23 AM EDT from Last 3 Months or Most Recently Relevant to Health Maintenance Results * (ABNORMAL) MICROALBUMIN/CREATININE RATIO URINE (08/10/2021 8:17 AM EDT) Urine Microalb 157.7 mg/L 08/10/2021 9:11 AM EDT [facility] Urine Creatinine 109.6 mg/dL 08/10/2021 9:11 AM EDT [facility] Ur Microalb/Creat 144(H) 0 - 30 mg/g 08/10/2021 9:11 AM EDT [facility] Urine URINE SPECIMEN COLLECTION / Unknown 08/10/2021 8:17 AM EDT 08/10/2021 8:31 AM EDT Dylan Hoover MD URINE ORDERABLES Final Resul t Performing Organization Address [facility] Co de Phone Number [facility] [address] [place] [address] , [place] [address] * (ABNORMAL) HEMOGLOBIN A1C (08/10/2021 6:23 AM EDT) Hgb A1C 6.5(H) 4.2 - 5.6 % 08/10/2021 7:35 AM EDT [facility] Est. Avg Glucose 140 mg/dL 08/10/2021 7:35 AM EDT [facility] Blood Venipuncture / Unknown 08/10/2021 6:23 AM EDT 08/10/2021 7:01 AM EDT Narrative [facility] - 08/10/2021 7:35 AM EDT REFERENCE RANGE: Normal: 4.0-5.6% Pre-diabetes: 5.7-6.4% Provisional diagnosis of diabetes: >6.4% Hgb F>10% and anything which shortens red cell survival, such as hemolytic anemia, or unstable hemoglobin variants such as HbSS, HbSC, or HbCC, will lower the HbA1c value associated with a given level of glycemic control. Dylan Hoover MD CHEMISTRY ORDERABLES Final R esult Performing Organization Address [facility] Co de Phone Number [facility] [address] [place] [address] , [place] [address] from Last 3 Months or Most Recently Relevant to Health Maintenance Insurance [place]IC[place] Advance Directives For more information, please contact: [phone] * Full Code (Latest Code Status on File) Date Activated Date Inactivated Comments 08/09/2021 7:46 PM 08/21/2021 9:22 PM
--- OUTSIDE RECORDS SUMMARY | 2024-09-13 15:18 | XMS_ITS | Encounter Summary ---
Author Organization [facility] Address [address] [place] [address] Care Team Providers Care Brand Ambassador Name Role Phone Guzman Rodríguez MD Primary Care Provider [phone] Encounter Details Date Type Department Care Team (Latest Contact Info) Description 08/31/2024 Travel Social History Tobacco Use Types Packs/Day Years [...] on file documented as of this encounter Functional Status * Over the [...] Guzman Garcia documented as of this encounter Plan of Treatment Upcoming Encounters Date Type Department Care Team (Latest Contact Info) Description 09/30/2024 12:40 PM EDT Hospital Encounter [facility] [address] [place] [phone] Qi Prasad MD [address] [place] [address] 09/30/2024 12:40 PM EDT Anesthesia Event [facility] [address] [place] [phone] Dale Mccord APRN [address] [place] [address] 09/30/2024 12:40 PM EDT - 09/30/2024 3:00 PM EDT Surgery [facility] [address] [place] [address] Qi Prasad MD [address] [facility] [address] [place] [address] TURP, USING SALINE PLASMA VAPORIZATION TECHNIQUE,GREENLIGHT LASER [[id number] (CPT )] 10/26/2024 3:30 PM EDT Office Visit Medical Office Building Urology [address] [facility], [address] [place] [phone] Qi Prasad MD [address] [address] Scheduled Procedures Name Priority Associated Diagnoses Date/Ti me TURP, USING SALINE PLASMA VAPORIZATION TECHNIQUE Elevated PSA 09/30/2024 12:40 PM EDT documented as of this encounter Visit Diagnoses Not on filedocumented in this encounter Additional Health Concerns Assessment Noted Time PHQ-9 Depression Total Score: 1 09/01/19 25 10:59 AM EDT A fall risk assessment has been complete d for the patient 08/31/2024 10:59 AM EDT A Body Mass Index follow-up plan has been documented for the patient 08/31/2024 12:38 PM EDT documented as of this encounter Care Teams Brand Ambassador Relationship Specialty Start Date End Date Guzman Rodríguez MD [address] [place] [address] PCP - General 08/17/20 documented as of this encounter
--- OUTSIDE RECORDS SUMMARY | 2024-09-13 15:18 | XMS_ITS | Clinical Summary ---
Author Organization [facility] Address [address] [place] [address] Care Team Providers Care Rug Drying Machine Operator Name Role Phone Unavailable Primary Care Provider Unavailabl e Social History Tobacco Use Types Packs/Day Years Used Date Smoking Tobacco: Never Assessed Interpersonal Safety Answer Date Record ed Family or friends hurt you Not on file 10/18 Family or friends insult you Not on file Family or friends threaten you Not on file 0 10/19/2023 Family or friends scream or curse at you Not on file 10/19/2023 Food Insecurity Answer Date Recorded Food run out past 12 months Not on file 10/04 Food did not last past 12 months Not on file 10/19/2023 Employment Answer Date Recorded Help finding and keeping a job Not on file 0 10/19/2023 Family and Community Support Answer Chaim e Recorded Help with Day to Day Activities Not on file 10/19/2023 Feeling Lonely or Isolated Not on file 10/18 Educational Attainment Answer Date Lamin rded Speak language other than Hong Konger at home Not on file 10/19/2023 Want help with school or training Not on file 10/19/2023 Depression Answer Date Recorded PHQ-2 Risk Not on file 10/19/2023 Disabilities Answer Date Recorded Difficulty concentrating Not on file 024 Difficulty doing errands alone Not on file 0 10/19/2023 Substance Use Answer Date Recorded Used prescription meds for non-medical reasons N ot on file 10/19/2023 Used illegal drugs past 12 months Not on file 10/19/2023 Sex and Gender Information Value Date Recorded Sex Assigned at Not on file Legal Sex Male 6:15 PM CDT Gender Identity Not on file Sexual Orientation Not on file Plan of Treatment Not on file
--- OUTSIDE RECORDS SUMMARY | 2024-09-13 15:18 | XMS_ITS | Referral Summary ---
Author Organization [facility] Address [address] [place] [address] Care Team Providers Care Cardroom Drawing Runner Name Role Phone Unavailable Primary Care Provider [...] Date Lamin rded Speak language other than Serbian at home Not on file 10/19/2023 Want [...]
--- OUTSIDE RECORDS SUMMARY | 2024-09-13 15:18 | XMS_ITS | Encounter Summary ---
Author Organization [facility] Address [address] [place] [address] Care Team Providers Care Instruction Librarian Name Role Phone Guzman Rodríguez MD Primary Care Provider [phone] Encounter Details Date Type Department Care Team (Late st Contact Info) Description 09/06/2024 Telephone [place] [facility] U[place] [address] [place] [address] Qi Prasad MD [address] [place] [address] Social History Tobacco Use Types Packs/Day Years [...] on file documented as of this encounter Miscellaneous Notes * Telephone Encounter - Tahira Olsen - 09/06/2024 12:41 PM EDT Spoke with patient, scheduled 09/30 surgery, 09/07 preop appointment and urine culture. Patient is aware of anesthesia preop screening call and arrival time call prior to surgery. Mailed surgery information documented in this encounter Plan of Treatment Upcoming Encounters Date Type Department Care Team (Latest Contact Info) Description 09/30/2024 12:40 PM EDT Hospital Encounter [facility] [address] [place] [address] Qi Prasad MD [address] [place] [address] 09/30/2024 12:40 PM EDT Anesthesia Event [facility] [address] [place] [address] Dale Mccord APRN [address] [place] [address] 09/30/2024 12:40 PM EDT - 09/30/2024 3:00 PM EDT Surgery [facility] [address] [place] [address] Qi Prasad MD [address] [address] TURP, USING SALINE PLASMA VAPORIZATION TECHNIQUE,GREENLIGHT LASER [[id number] (CPT )] 10/26/2024 3:30 PM EDT Office Visit Medical Office Building Urology [facility] [address] [facility], [address] [place] [address] Qi Prasad MD [address] [place] [address] Scheduled Procedures Name Priority Associated Diagnoses Date/Ti me TURP, USING SALINE PLASMA VAPORIZATION TECHNIQUE Elevated PSA 09/30/2024 12:40 PM EDT documented as of this encounter Goals Goal Patient Goal Type Associated Problems Recent Progress Patient-Stated? Author Autogenerat ed Goal Care Plan Autogenerated Problem No Tahira Olsen documented as of this encounter Results * (ABNORMAL) Urine Culture (09/07/2024 12:33 PM EDT) Culture >=100,000 CFU/mL Staphylococcus coagulase negative(A) 09/09/2024 12:41 PM EDT [facility] Urine Urine specimen obtained by clean catch procedure / Unknown Non-blood Collection / Unknown 09/07/2024 12:33 PM EDT 09/07/2024 12:33 PM EDT us Qi Prasad MD LAB MICROBIOLOGY - GENERAL O RDERABLES Final Result [facility] [address] [place] [address] documented in this encounter Visit Diagnoses Diagnosis Urinary retention- Primary Unspecified retention of urine Elevated PSA Elevated prostate specific antigen (PSA) documented in this encounter Additional Health Concerns Active [...] documented as of this encounter Care Teams Instruction Librarian Relationship Specialty Start Date End Date Guzman Rodríguez MD [address] [place] [address] PCP - General 08/17/20 documented as of this encounter
--- OUTSIDE RECORDS SUMMARY | 2024-09-13 15:18 | XMS_ITS | Clinical Summary ---
Author Organization [facility] Address [address] [place] [address] Care Team Providers Care Carpet Repairer Name Role Phone Guzman Rodríguez MD Primary Care Provider [phone] Allergies No known active allergies Medications levothyroxine (Synthroid, Levoxyl) 25 MCG tablet Take 1 tablet by mouth daily. Active metFORMIN (Glucophage) 500 MG tablet Take 1 tablet by mouth 2 times a day. Active Eliquis 5 MG tablet TAKE TWO TABLETS BY MOUTH TWICE DAILY FOR 7 DAYS followed by taking 1 tablet by MOUTH twice daily FOR 3 MONTHS as directed 11/09/2023 Active tamsulosin (Flomax) 0.4 MG 24 hr capsule Take 1 capsule (0.4 mg) by mouth 1 (one) time each day. 90 capsule 3 01/18/2024 01/18/20 Active finasteride (Proscar) 5 MG tablet Take 1 tablet (5 mg) by mouth 1 (one) time each day. 90 tablet 3 01/18/2024 01/18/20 25 Active Encounters Date Type Department Care Team Description 09/07/2024 9:30 AM EDT Pre-Admission Testing [facility] Pre-op Clinic [address] [place] [phone] 09/07/2024 Travel 09/06/2024 Telephone [place] [facility] U[facility] [address] [place] [address] Qi Prasad MD 09/05/[address] [facility] Urology [address] [place] [address] Qi Prasad MD 08/31/2024 10:45 AM EDT Office Visit Medical Office Building Urology [address] [facility], [address] [place] [address] Qi Prasad MD Elevated PSA (Primary Dx); Urinary retention 08/31/2024 Travel from Last 3 Months Family History 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 Relation Name Comments Other cancer Mother Anesthesia problems Neg Hx Malig Hyperthermia Neg Hx Relation Name Status Comments Mother Social History Tobacco Use Types Packs/Day Years [...] on file Sexual Orientation Not on file Last Filed Vital Signs Vital Sign Reading Time Taken Comments Blood Pressure 144/87 08/31/2024 10:58 AM EDT Pulse 74 08/31/2024 10:58 AM EDT Temperature 36.7 C (98.1 F) 08/31/2024 10:58 AM EDT Respiratory Rate 10 01/18/2024 9:41 AM EDT Oxygen Saturation 100% 08/31/2024 10:58 AM EDT Inhaled Oxygen Concentration - - Weight 72.6 kg (160 lb) 09/07/2024 9:58 AM EDT Height 175.3 cm (5' 9 ) 08/31/2024 10:58 AM EDT Body Mass Index 23.63 08/31/2024 10:58 AM EDT Plan of Treatment Upcoming Encounters Date Type Department Care Team (Latest Contact Info) Description 09/30/2024 12:40 PM EDT Hospital Encounter [facility] [address] [place] [address] Qi Prasad MD [address] [place] [address] 09/30/2024 12:40 PM EDT Anesthesia Event [facility] [address] [place] [address] Dale Mccord APRN [address] [place] [address] 09/30/2024 12:40 PM EDT - 09/30/2024 3:00 PM EDT Surgery [facility] [address] [place] [address] Qi Prasad MD [address] [place] [address] TURP, USING SALINE PLASMA VAPORIZATION TECHNIQUE,GREENLIGHT LASER [[id number] (CPT )] 10/26/2024 3:30 PM EDT Office Visit Medical Office Building Urology [facility] [address] [facility], [address] [place] [address] Qi Prasad MD [address] [place] [address] Scheduled Procedures Name Priority Associated Diagnoses Date/Ti me TURP, USING SALINE PLASMA VAPORIZATION TECHNIQUE Elevated PSA 09/30/2024 12:40 PM EDT Health Maintenance Due Date Last Done Comments [facility]-Hepatitis C Screening 1950 [facility]-Medicare Annual Wellness (AWV) 1950 [facility]-Infant/Child/Adol SDOH Screenings 1950 [facility]- SDOH Screenings 1970 [facility]-Adult SDOH Screenings 1970 [facility]-DTaP,Tdap,and Td Vaccines (1 - Tdap) 09/23/1971 CT Colonography 1997 Colonoscopy 1997 FIT-DNA 1997 FIT 1997 FOBT 1997 Sigmoidoscopy 1997 [facility]-Colorectal Cancer Screening 1997 [facility]-Zoster Vaccines (1 of 2) 2002 [facility]-RSV Vaccine: 60+ Years or (1 - Risk 60-74 years 1-dose series) 2012 [facility]-Abdominal Aortic Aneurysm (AAA) Screening 2017 [id number] Vaccine (2 - Moderna risk series) 03/14/2024 02/15/2024 [facility]-Influenza Vaccine (Season Ended) 2024 01/06/2020, 01/06/2020, 02/25/2019, Additional history exists [facility]-Depression Screening 08/31/2025 08/31/2024, 08/05 [facility]-Pneumococcal Vaccine: 50+ Years Completed 02/25/2019, 01/22/2018, 07/19/2015 HPV Vaccines Aged Out No longer eligi ble based on patient's age to complete this topic [facility]-HIB Vaccines Aged Out No longer e ligible based on patient's age to complete this topic [facility]-Hepatitis A Vaccines Aged Out No longer eligible based on patient's age to complete this topic [facility]-IPV Vaccines Aged Out No longer e ligible based on patient's age to complete this topic [facility]-Rotavirus Vaccines Aged Out No lo nger eligible based on patient's age to complete this topic Goals Goal Patient Goal Type Associated Problems Recent Progress Patient-Stated? Author Autogenerat ed Goal Care Plan Autogenerated Problem No Raúl Tahira Simpson Procedures Procedure Name Priority Date/Time Associated Diagnosis Comments URINE CULTURE Routine 09/07/2024 12:33 PM EDT Urinary retention URINE CULTURE Routine 09/07/2024 12:33 PM EDT Urinary retention POC US BLADDER SCAN FOR VOLUME Routine 08/31/2024 11:02 AM EDT Elevated PSA from Last 3 Months Results * (ABNORMAL) Urine Culture - Lab Collect (09/07/2024 12:33 PM EDT) Only the most recent of2 resultswithin the time period is included. Culture >=100,000 CFU/mL Staphylococcus coagulase negative(A) 09/08/2024 12:45 PM EDT [facility] Urine Urine specimen obtained by clean catch procedure / Unknown Non-blood Collection / Unknown 09/07/2024 12:33 PM EDT 09/07/2024 12:33 PM EDT us Qi Prasad MD LAB MICROBIOLOGY - GENERAL O RDERABLES Final Result [facility] [address] [place] [address] * POC US Bladder Volume (08/31/2024 11:02 AM EDT) Urine, Volume 153 mL IMAGING Anatomical Region Laterality Modality Other us Qi Prasad MD IMG POINT OF CARE ULTRASOUND Final Result from Last 3 Months Additional Health Concerns Active Problems Noted Date Diagnosed Date Autogenerated Problem 09/06/2024 Insurance MEDICARE Care Teams Carpet Repairer Relationship Specialty Start Date End Date Guzman Rodríguez MD [address] [place] [address] PCP - General 08/17/20
--- OUTSIDE RECORDS SUMMARY | 2024-09-13 15:18 | XMS_ITS | Data Portability ---
Author Organization [facility] LYNDSAY Hammer HARRIS CLOSED Address [address] [place] [address] Assessment Encounter Date Assessment Date Assessment LastModified by Organization Details LastModified Time 05/26/2022 05/26/2022 PREOPERATIVE DIAGNOSIS: Hematuria. POSTOPERATIVE DIAGNOSIS: Hematuria. PROCEDURE: Cystoscopy. SURGEON: Joe Elmore MD OPERATIVE NOTE: The patient was placed in the supine position and prepped and draped in the usual sterile fashion. UroJet was instilled for topical anesthesia. Flexible cystoscope was inserted. The urethra was normal. 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 The bladder mucosa was normal. There was no evidence of tumor. Ureteral orifices were in normal position and configuration. There was severe trabeculation of the bladder wall. The cystoscope was removed. The patient tolerated the procedure well and left the operating room in satisfactory condition. [email or web address] Not available 05/26/2022 11:35:57 Plan of Treatment Reminders Order Date Submit Date Provider Last Modified By Organization Details Last Modified Time Details Appointments None recorded. Lab urinalysis panel, auto [email or web address], [address], [facility] [address], [place], [address], 3 15:17:35 Referral None recorded. Procedures None recorded. Surgeries cystoscopy (SURG) 2022 023 [email or web address] [facility], [address], [address], [place], [address], 3 16:49:00 Imaging None recorded. Medication Orders None recorded. Patient TargetsNo targets recorded. Patient InstructionsNo instructions recorded. Reason for Referral None Reported. Results Created Date Observation Date Name Description Value Unit Range Abnormal Flag Note LastModifiedBy Organization Detail LastModifiedTime 05/08/19 23 05/08/2022 urina lysis panel , auto Unknown Analyte Clean Catch Not Available [facility] [address], [place], [address], 05/08/2022 14:50:40 05/08/19 23 05/08/2022 urina lysis panel , auto Unknown Analyte Yellow Not Available [facility] [address] [place] [address] [address], [place], [address], 05/08/2022 14:50:40 05/08/19 23 05/08/2022 urina lysis panel , auto Unknown Analyte Clear Not Available [facility] [address], [place], [address], 05/08/2022 14:50:40 05/08/19 23 05/08/2022 urina lysis panel , auto Unknown Analyte 1.015 Not Available [facility] [address], [place], [address], 05/08/2022 14:50:40 05/08/19 23 05/08/2022 urina lysis panel , auto Unknown Analyte 5.0 Not Available [facility] [address], [place], [address], 05/08/2022 14:50:40 05/08/19 23 05/08/2022 urina lysis panel , auto Unknown Analyte 75 Pura/ul (+) Not Available [facility] [address], [place], [address], 05/08/2022 14:50:40 05/08/19 23 05/08/2022 urina lysis panel , auto Unknown Analyte Negati ve Not Available [facility] [address], [place], [address], 05/08/2022 14:50:40 05/08/19 23 05/08/2022 urina lysis panel , auto Unknown Analyte 500 mg/dl (+++) Not Available [facility] [address], [place], [address], 05/08/2022 14:50:40 05/08/19 23 05/08/2022 urina lysis panel , auto Unknown Analyte 50 mg/dl Not Available [facility] [address], [place], [address], 05/08/2022 14:50:40 05/08/19 23 05/08/2022 urina lysis panel , auto Unknown Analyte Negati ve Not Available [facility] [address], [place], [address], 05/08/2022 14:50:40 05/08/19 23 05/08/2022 urina lysis panel , auto Unknown Analyte Normal Not Available [facility] [address], [place], [address], 05/08/2022 14:50:40 05/08/19 23 05/08/2022 urina lysis panel , auto Unknown Analyte Negati ve Not Available [facility] [address], [place], [address], 05/08/2022 14:50:40 05/08/19 23 05/08/2022 urina lysis panel , auto Unknown Analyte Negati ve Not Available [facility] [address], [place], [address], 05/08/2022 14:50:40 05/08/19 23 04/02/2022 CT, abdom en + pelvi s, w/ contr ast No observ ation record ed. [facility] (Med Record) [address], [place], [address], 05/08/2022 18:30:23 Result Notes None recorded. Problems No Known Problems Medical Equipment None Reported. Allergies No known drug allergies Medications Name Sig Start Date Stop Date Status Note LastModified by Organization Details LastModified Time levothyroxine active Not Available Not Available Not Available finasteride active Not Available Not A vailable Not Available tamsulosin active Not Available Not Av ailable Not Available metformin active Not Available Not Heike ilable Not Available Vitals Date Recorded Body weight Provider Name an d Address Organization Details Last Updated DateTime 05/08/2022 99387.11 giacomo [facility] 05/2022 14:48:57 Social History None recorded. Functional Status None recorded. Mental Status None recorded. Family History Nothing Reported. 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 No medical history recorded. Past Encounters Encounter ID Performer Location Encounter Start Date Encounter Closed Date Diagnosis/Indication Diagnosis SNOMED-CT Code Diagnosis ICD10 Code Diagnosis Note [id number] JOE ELMORE MD [facility] [address] [place] [address] 05/08/2022 14:03:18 05/08/2022 15:27:32 Frantz hematuria 223315881 R31.0 Benign pro static hyperplasia with outflow obstruction 527866569 N40.1 [id number] JOE ELMORE MD SURGERY SCHEDULE [address] [place] [address] 05/26/2022 08:14:43 05/26/2022 08:15:00 Health Concerns Section Related Observation LastModified by Organization Detai ls LastModified Time None Recorded Concern Status LastModified by Organization Details LastModified Time None Recorded Advance Directives Directive None Recorded Payers Insurance Date Sequence Insurance Name Policy Number Policy Parada Covered Member ID Parada Member ID Guarantor Name 05/08/2022 2 [place] [employer] - FFS/TRADITIO NAL Gil Paz [id number] Gil Paz 05/08/2022 1 [place] Gume Paz [id number] Gil Paz Notes Date Note Type Note Provider Name and Address Organization Details Recorded Time 05/08/2022 text/html 71-year-old gentleman who several weeks ago had an episode of gross hematuria. There was no blood clot formation he does not have any back or abdominal pain. He is on tamsulosin and finasteride. He has hesitancy and does not feel like he empties his bladder completely. CT scan shows bilateral renal cysts. He has a bladder diverticulum and a thickened bladder wall JOE ELMORE MD [facility] [place], [address], [facility] 05/08/2022 15:29:03
--- OUTSIDE RECORDS SUMMARY | 2024-09-13 15:18 | XMS_ITS | Encounter Summary ---
Author Organization Healthcare Address [address] [place] [address] Care Team Providers Care Protection Analyst Name Role Phone Guzman Rodríguez MD Primary Care Provider [phone] Encounter Details Date Type Department Care Team (Late st Contact Info) Description 09/05/2024 Telephone [facility] [address] [place] [address] Qi Prasad MD [address] [place] [address] Social History Tobacco Use Types [...] * Telephone Encounter - Tahira Olsen - 09/05/2024 11:27 AM EDT Left message with patient to return call on direct line to schedule surgery documented in this encounter Plan of Treatment Upcoming Encounters Date Type Department Care Team (Latest Contact Info) Description 09/30/2024 12:40 PM EDT Hospital Encounter [facility] [address] [place] [address] Qi Prasad MD [address] [place] [address] 09/30/2024 12:40 PM EDT Anesthesia Event [facility] [address] [place] [address] Dale Mccord, SETH [address] [place] [address] 09/30/2024 12:40 PM EDT - 09/30/2024 3:00 PM EDT Surgery [facility] [address] [place] [address] Qi Prasad MD [address] [address] TURP, USING SALINE PLASMA VAPORIZATION TECHNIQUE,GREENLIGHT LASER [[id number] (CPT )] 10/26/2024 3:30 PM EDT Office Visit Medical Office Building Urology [address] [place] [address], [address] [place] [address] Qi Prasad MD [address] [address] Scheduled Procedures Name Priority Associated [...] documented as of this encounter Care Teams Protection Analyst Relationship Specialty Start Date End Date Guzman Rodríguez MD [address] [place] [address] PCP - General 08/17/20 documented as of this encounter
--- OUTSIDE RECORDS SUMMARY | 2024-09-13 15:18 | XMS_ITS | Encounter Summary ---
Author Organization [employer] Address [address] [place] [address] Care Team Providers Care Hand Bender Name Role Phone Unavailable Primary Care Provider Unavailabl e Reason for Referral * MRI (Routine) - New Request Specialty Diagnoses / Procedures Referred By Contac t Referred To Contact Radiology Diagnoses Elevated prostate specific antigen (PSA) Procedures MR pelvis without & with IV contrast Jose Martinez MD [address] [place] [address] Phone: tel: fax: Referral ID Status Reason Start Date Expiration Date V isits Requested Visits Authorized [id number] New Request 10/19/2023 10/18/2024 1 1 Encounter Details Date Type Department Care Team (Late st Contact Info) Description 10/19/2023 Outside Orders [facility] Central Scheduling [address] [place] [address] Jose Martinez MD [address] [place] [address] Elevated prostate specific antigen (PSA) (Primary Dx) Social History Tobacco Use Types Packs/Day Years [...] Date Lamin rded Speak language other than Sudanese at home Not on file 10/19/2023 Want [...] on file documented as of this encounter Plan of Treatment Scheduled Orders Name Type Priority Associated Diagnoses Orde r Schedule MR pelvis without & with IV contrast Imaging Routine Elevated prostate specific antigen (PSA) Expected: 10/19/2023, Expires: 11/18/2024 documented as of this encounter Visit Diagnoses Diagnosis Elevated prostate specific antigen (PSA)- Primary documented in this encounter
--- OUTSIDE RECORDS SUMMARY | 2024-09-13 15:18 | XMS_ITS | Encounter Summary ---
Author Organization [facility] Address [address] [place] [address] Care Team Providers Care Sales Leader Name Role Phone Guzman Rodríguez MD Primary Care Provider [phone] Encounter Details Date Type Department Care Team (Latest Contact Info) Description 09/07/2024 Travel Social History Tobacco Use Types Packs/Day Years Used Date Smoking Tobacco: Former Cigarettes 0.5 20.9 S tarted: 11/02/2003 Smokeless Tobacco: Never Comments:Quit about 2017 Alcohol Use Standard Drinks/Week Comments Not Currently [...] Hospital Encounter [facility] [address] [place] [address] Qi Prasad MD [address] [place] [address] 09/30/2024 12:40 PM EDT Anesthesia Event [facility] [address] [place] [address] Dale Mccord, [employer] [address] [place] [address] 09/30/2024 12:40 PM EDT - 09/30/2024 3:00 PM EDT Surgery [facility] [address] [place] [address] Qi Prasad MD [address] [place] [address] TURP, USING SALINE PLASMA VAPORIZATION TECHNIQUE,GREENLIGHT LASER [[id number] (CPT )] 10/26/2024 3:30 PM EDT Office Visit Medical Office Building Urology [address] [facility], [address] [place] [address] Qi Prasad MD [address] [place] [address] Scheduled Procedures Name Priority Associated Diagnoses Date/Ti [...] documented as of this encounter Care Teams Sales Leader Relationship Specialty Start Date End Date Guzman Rodríguez MD [address] [place] [address] PCP - General 08/17/20 documented as of this encounter
== END 2024-09-12 23:59 | disposition home or self-care (01) ==
LOC: LAB.DROPOF 09-13 15:10
PROVIDERS: PCP Student in an Organized Health Care Education/Training Program; Visit Provider Student in an Organized Health Care Education/Training Program
DX: N39.0 Urinary tract infection, site not specified (principal)
CPT/HCPCS: 87086; 87088